=== PATIENT | female | born 1930 | race Caucasian/White ===

== ENCOUNTER 2016-12-31 12:58 | Emergency (ER) | payer MEDICARE, BC ==
[2016-12-31] MEDS ORDERED: ONDANSETRON 4 MG ODT TABLET SL ONE (14:32)
--- NOTE | 2016-12-31 15:05 | Emergency Department Record ---
History of Present Illness - General Chief Complaint: Fall Injury Stated Complaint: FALL Time Seen by Provider: 12/31/16 13:21 Source: Patient Mode of Arrival: Wheelchair Limitations: No limitations - History of Present Illness Initial Comments: pt tripped and hit her head on a clock. 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 Witnessed: Yes, by family Place Fall Occurred: Home Loss of Consciousness: None Prolonged Down Time?: No Symptoms Prior to Fall: None Location: Head Severity: Mild Severity scale (1-10): 2 Quality: Aching Context: Tripped/slipped Associated Symptoms: Denies - [place] Coma Scale Eye Response: (4) Open spontaneously Motor Response: (6) Obeys commands Verbal Response: (5) Oriented [place] Total: 15 - Related Data Home Medications Medication Instructions Recorded Confirmed Last Taken Esomeprazole Magnesium [Nexium] 40 mg PO DAILY 12/20/15 12/31/16 12/31/16 Metoprolol Succinate 25 mg PO DAILY 12/20/15 12/31/16 12/31/16 Thyroid,Pork [[place] Thyroid] 60 mg PO DAILY 12/20/15 12/31/16 12/31/16 Donepezil HCl [Aricept] 5 mg PO DAILY 12/31/16 12/31/16 12/31/16 Perphenazine 4 mg PO QHS 12/31/16 12/31/16 Unknown Raloxifene HCl [Raloxifene HCl] 60 mg PO DAILY 12/31/16 12/31/16 12/31/16 Solifenacin Succinate [Vesicare] 10 mg PO DAILY 12/31/16 12/31/16 12/31/16 Valsartan [Diovan] 40 mg PO DAILY 12/31/16 12/31/16 12/31/16 Verapamil HCl [Verapamil Sr] 120 mg PO DAILY 12/31/16 12/31/16 12/31/16 Allergies Allergy/AdvReac Type Severity Reaction Status Date / Time cephalexin [CEPHALEXIN] Allergy Intermediate RASH Verified 12/31/16 13:06 codeine [CODEINE] Allergy Intermediate RASH Verified 12/31/16 13:06 erythromycin ethylsuccinate Allergy Intermediate RASH Verified 12/31/16 13:06 [From E.E.S.] iodine Allergy Intermediate RASH Verified 12/31/16 13:06 Penicillins [PENICILLINS] Allergy Intermediate RASH Verified 12/31/16 13:06 propoxyphene HCl Allergy Intermediate RASH Verified 12/31/16 13:06 [From DARVON] sulfamethoxazole Allergy Intermediate RASH Verified 12/31/16 13:06 [From BACTRIM] trimethoprim [From BACTRIM] Allergy Intermediate RASH Verified 12/31/16 13:06 Travel Screening - Travel/Exposure Within Last 30 Days Have you traveled within the last 30 days?: No Review of Systems Reviewed: No additional complaints except as noted below Constitutional: Reports: As per HPI. Denies: Chills, Fever, Malaise, Night sweats, Weakness, Weight change Eyes: Reports: As per HPI. Denies: Eye discharge, Eye pain, Photophobia, Vision change ENT: Reports: As per HPI. Denies: Congestion, Dental pain, Ear pain, Epistaxis , Hearing loss, Throat pain Respiratory: Reports: As per HPI. Denies: Cough, Dyspnea, Hemoptysis, Stridor, Wheezes Cardiovascular: Reports: As per HPI. Denies: Arrhythmia, Chest pain, Dyspnea on exertion, Edema, Murmurs, Orthopnea, Palpitations, Paroxysmal nocturnal dyspnea, Rheumatic Fever, Syncope Endocrine: Reports: As per HPI. Denies: Fatigue, Heat or cold intolerance, Polydipsia, Polyuria Gastrointestinal: Reports: As per HPI. Denies: Abdominal pain, Constipation, Diarrhea, Hematemesis, Hematochezia, Melena, Nausea, Vomiting Genitourinary: Reports: As per HPI. Denies: Abnormal menses, Discharge, Dyspareunia, Dysuria, Frequency, Hematuria, Incontinence, Retention, Urgency Musculoskeletal: Reports: As per HPI. Denies: Arthralgia, Back pain, Gout, Joint swelling, Myalgia, Neck pain Skin: Reports: As per HPI. Denies: Bruising, Change in color, Change in hair/ nails, Lesions, Pruritus, Rash Neurological: Reports: As per HPI. Denies: Abnormal gait, Confusion, Headache, Numbness, Paresthesias, Seizure, Tingling, Tremors, Vertigo, Weakness Psychiatric: Reports: As per HPI. Denies: Anxiety, Auditory hallucinations, Depression, Homicidal thoughts, Suicidal thoughts, Visual hallucinations Hematological/Lymphatic: Reports: As per HPI. Denies: Anemia, Blood Clots, Easy bleeding, Easy bruising, Swollen glands Past Medical History - SOCIAL HISTORY Smoking Status: Never smoker Alcohol Use: None Drug Use: None - RESPIRATORY Hx Respiratory Disorders: No - CARDIOVASCULAR Hx Cardio Disorders: Yes Hx Hypertension: Yes - NEURO Hx Neuro Disorders: Yes Hx Dizziness: Yes Hx Headaches: Yes Comment:: memory loss due to weight loss per daughter of pt - GI Hx GI Disorders: Yes Hx Pancreatitis: Yes Hx Wt Loss/Wt Gain: Yes (loss) - Hx Genitourinary Disorders: No - ENDOCRINE Hx Endocrine Disorders: Yes Hx Thyroid Disease: Yes - MUSCULOSKELETAL Hx Musculoskeletal Disorders: No - PSYCH Hx Psych Problems: No - HEMATOLOGY/ONCOLOGY Hx Hematology/Oncology Disorders: No Family Medical History Any Significant Family History?: Yes Family Hx Comment (NOT TO BE USED IN PLACE OF ITEMS BELOW): father- fast heart large, grandmother enlarged heart Hx Heart Disease: Father Physical Exam - General General Appearance: Alert, Oriented x3, Cooperative, Mild distress - Head Head exam: Normal inspection Head exam detail: Contusion, Hematoma, Laceration Image of Face/Head: 1 - contusion, swelling 2 - 2.8 cm lac - Eye Eye exam: Normal appearance, PERRL, EOMI Pupils: Normal accommodation - ENT ENT exam: Normal exam, Mucous membranes moist, Normal external ear exam, Normal orophraynx Ear exam: Normal external inspection. negative: External canal tenderness Nasal Exam: Normal inspection. negative: Discharge, Sinus tenderness Mouth exam: Normal external inspection, Tongue normal Teeth exam: Normal inspection. negative: Dental caries Throat exam: Normal inspection. negative: Tonsillar erythema, Tonsillar exudate - Neck Neck exam: Normal inspection, Full ROM. negative: Tenderness - Respiratory Respiratory exam: Normal lung sounds bilaterally. negative: Respiratory distress - Cardiovascular Cardiovascular Exam: Regular rate, Normal rhythm, Normal heart sounds - GI/Abdominal GI/Abdominal exam: Soft, Normal bowel sounds. negative: Tenderness - Rectal Rectal exam: Deferred - exam: Deferred - Extremities Extremities exam: Normal inspection, Full ROM, Normal capillary refill. negative: Tenderness - Back Back exam: Reports: Normal inspection, Full ROM. Denies: Muscle spasm, Rash noted, Tenderness - Neurological Neurological exam: Alert, CN II-XII intact, Normal gait, Oriented X3 - Psychiatric Psychiatric exam: Normal affect, Normal mood - Skin Skin exam: Dry, Intact, Normal color, Warm Course Vital Signs 12/31/16 12:59 Temperature 97.4 F L Pulse Rate 85 Respiratory 18 Rate Blood Pressure 168/90 Pulse Ox 99 Disposition Disposition: Discharge Clinical Impression: Head injury Qualifiers: Encounter type: initial encounter Qualified Code(s): S09.90XA - Unspecified injury of head, initial encounter Laceration of forehead without complication Qualifiers: Encounter type: initial encounter Qualified Code(s): S01.81XA - Laceration without foreign body of other part of head, initial encounter Disposition: Home, Self-Care Condition: (1) Good Instructions: Fall Prevention for Older Adults (ED), Minor Head Injury (ED), Suture Care (ED), Laceration (ED) Additional Instructions: follow up woith family doctor. return sooner if worse. sutures out in 6 days Forms: Patient Portal Access Laceration - Other - Time Out Informed consent:: Informed consent obtained Confirmed first & last name, , procedure, correct site?: Yes - Location Location of laceration:: Right Laceration - Head - Time Out Informed consent:: Informed consent obtained Confirmed first & last name, , procedure, correct site?: Yes - Location Location of laceration:: Right Laceration located on:: Face Length of laceration:: 2.8 Length of laceration:: cm - Clean and Prep Laceration cleaning method:: Cleansed Laceration cleaning agent:: Normal Saline - Topical Anesthetic Lidocaine dose:: 1 mL Lidocaine used:: 1% - Medication Medicated for procedure?: No - Procedural Detail Tissue detail:: Torn Foreign body in the wound?: Yes Undermining was preformed?: No Stent applied?: No [place] applied?: No (4 simple interrupted sutures w 5.0 ethilon) Retention suture(s) applied?: No
== END 2016-12-31 15:23 | disposition home or self-care (01) ==
LOC: ER 12:58
DX: S01.81XA Laceration without foreign body of other part of head, initial encounter (principal); S09.92XA Unspecified injury of nose, initial encounter; R53.1 Weakness; R63.4 Abnormal weight loss; I10 Essential (primary) hypertension; E07.9 Disorder of thyroid, unspecified; R41.3 Other amnesia; W18.09XA Striking against other object with subsequent fall, initial encounter; Y92.009 Unspecified place in unspecified non-institutional (private) residence as the place of occurrence of the external cause
CPT/HCPCS: 12013; 70450; 72125; 99283; 99284

== ENCOUNTER 2017-01-01 13:11 | Emergency (ER) | payer MEDICARE, BC ==
[2017-01-01 13:43] LABS: BASO % 1.4 % (0-6); EOS % 1.1 % (0-6); GRAN % 73.4 % (47-80); HEMATOCRIT 33.5 % (35.0-47.0); HEMOGLOBIN 11.8 gm/dl (11.6-16.0); LYMPH % 12.9 % (16-45); MEAN CELL VOLUME 90.8 fl (81-97); MEAN CORPUSCULAR HGB CONC 35.2 g/dl (32-36); MEAN PLATELET VOLUME 9.8 fl (7.4-10.4); MONO % 11.2 % (0-9); PLATELET COUNT 227 K/uL (130-400); RED BLOOD COUNT 3.69 M/uL (3.80-5.40); RED CELL DISTRIBUTION WIDTH 12.6 % (11.5-14.5); WHITE BLOOD COUNT W/O DIFF 3.5 K/uL (4.2-12.2)
[2017-01-01 13:46] LABS: MEAN CORPUSCULAR HEMOGLOBIN 31.9 pg (27-33)
[2017-01-01 13:57] LABS: ALB/GLOB RATIO 1.5 (1.1-1.8); ALBUMIN 3.8 gm/dL (3.5-5.0); ALKALINE PHOSPHATASE 65 U/L (38-126); ALT/SGPT 23 U/L (9-52); ANION GAP 17.8 (7-16); AST/SGOT 41 U/L (14-36); BILIRUBIN,TOTAL 0.46 mg/dL (0.2-1.3); BLOOD UREA NITROGEN 28 mg/dL (7-17); CARBON DIOXIDE 19.2 mmol/L (22-30); CREATININE 1.4 mg/dL (0.52-1.04); EST GLOMERULAR FILTRATION RATE 38 ml/min; GLUCOSE,RANDOM 62 mg/dL (70-110); TOTAL PROTEIN 6.4 gm/dL (6.3-8.2)
[2017-01-01 13:58] LABS: ACETAMINOPHEN < 10.0 ug/mL (10.0-30.0)
[2017-01-01 14:11] LABS: INR 1.07; PARTIAL THROMBOPLASTIN TIME 21.8 SECONDS (24.5-39.1); PROTHROMBIN TIME (PATIENT) 12.1 SECONDS (9.5-12.1)
[2017-01-01] MEDS: DEXTROSE 50 % IVP 50 ML DISP.SYRIN IVP ONE (14:16)
[2017-01-01 16:30] LABS: URINE APPEARANCE CLEAR; URINE BILIRUBIN NEGATIVE (NEGATIVE); URINE BLOOD NEGATIVE (NEGATIVE); URINE COLOR YELLOW; URINE KETONE 40 mg/dL (NEGATIVE); URINE LEUKOCYTE ESTERASE NEGATIVE (NEGATIVE); URINE NITRITE NEGATIVE (NEGATIVE); URINE PROTEIN NEGATIVE (NEGATIVE); URINE UROBILINOGEN 0.2 E.U./dL (0.20 - 1.00)
[2017-01-01] MEDS: ACETAMINOPHEN 325 MG TAB PO ONE (16:40)
--- NOTE | 2017-01-01 17:10 | Emergency Department Record ---
History of Present Illness - General Chief Complaint: Headache Migraine Stated Complaint: HEADPAIN/ABD PAIN Time Seen by Provider: 01/01/17 13:23 Source: Patient, EMS, RN notes reviewed Mode of Arrival: EMS - History of Present Illness Initial Comments: patient came in to ED with confusion and glucose of 68 per EMS and abdominal pain on palpation of the abd. We rechecked her glucose and it dropped to 60 and she was given an amp of D50 and she was doing much better. Seen her yesterday and she fell and head CT hegative yesterday. Onset/Timin -: Days(s) Context: Recent head injury Associated Symptoms: Other - Related Data Home Medications Medication Instructions Recorded Confirmed Last Taken Esomeprazole Magnesium [Nexium] 40 mg PO DAILY 12/20/15 01/01/17 01/01/17 Metoprolol Succinate 25 mg PO DAILY 12/20/15 01/01/17 01/01/17 Thyroid,Pork [[place] Thyroid] 60 mg PO DAILY 12/20/15 01/01/17 01/01/17 Donepezil HCl [Aricept] 5 mg PO DAILY 12/31/16 01/01/17 01/01/17 Perphenazine 4 mg PO QHS 12/31/16 01/01/17 01/01/17 Raloxifene HCl [Raloxifene HCl] 60 mg PO DAILY 12/31/16 01/01/17 01/01/17 Solifenacin Succinate [Vesicare] 10 mg PO DAILY 12/31/16 01/01/17 01/01/17 Valsartan [Diovan] 40 mg PO DAILY 12/31/16 01/01/17 01/01/17 Verapamil HCl [Verapamil Sr] 120 mg PO DAILY 12/31/16 01/01/17 01/01/17 Allergies Allergy/AdvReac Type Severity Reaction Status Date / Time cephalexin [CEPHALEXIN] Allergy Intermediate RASH Verified 01/01/17 13:18 codeine [CODEINE] Allergy Intermediate RASH Verified 01/01/17 13:18 erythromycin ethylsuccinate Allergy Intermediate RASH Verified 01/01/17 13:18 [From E.E.S.] iodine Allergy Intermediate RASH Verified 01/01/17 13:18 Penicillins [PENICILLINS] Allergy Intermediate RASH Verified 01/01/17 13:18 propoxyphene HCl Allergy Intermediate RASH Verified 01/01/17 13:18 [From DARVON] sulfamethoxazole Allergy Intermediate RASH Verified 01/01/17 13:18 [From BACTRIM] trimethoprim [From BACTRIM] Allergy Intermediate RASH Verified 01/01/17 13:18 Travel Screening - Travel/Exposure Within Last 30 Days Have you traveled within the last 30 days?: No - Travel/Exposure Within Last Year Have you traveled outside the [place] in the last year?: No - Additonal Travel Details Have you been exposed to anyone with a communicable illness?: No - Travel Symptoms Symptom Screening: None Review of Systems Reviewed: No additional complaints except as noted below Constitutional: Reports: As per HPI. Denies: Chills, Fever, Malaise, Night sweats, Weakness, Weight change Eyes: Reports: As per HPI. Denies: Eye discharge, Eye pain, Photophobia, Vision change ENT: Reports: As per HPI. Denies: Congestion, Dental pain, Ear pain, Epistaxis , Hearing loss, Throat pain Respiratory: Reports: As per HPI. Denies: Cough, Dyspnea, Hemoptysis, Stridor, Wheezes Cardiovascular: Reports: As per HPI. Denies: Arrhythmia, Chest pain, Dyspnea on exertion, Edema, Murmurs, Orthopnea, Palpitations, Paroxysmal nocturnal dyspnea, Rheumatic Fever, Syncope Endocrine: Reports: As per HPI. Denies: Fatigue, Heat or cold intolerance, Polydipsia, Polyuria Gastrointestinal: Reports: As per HPI. Denies: Abdominal pain, Constipation, Diarrhea, Hematemesis, Hematochezia, Melena, Nausea, Vomiting Genitourinary: Reports: As per HPI. Denies: Abnormal menses, Discharge, Dyspareunia, Dysuria, Frequency, Hematuria, Incontinence, Retention, Urgency Musculoskeletal: Reports: As per HPI. Denies: Arthralgia, Back pain, Gout, Joint swelling, Myalgia, Neck pain Skin: Reports: As per HPI. Denies: Bruising, Change in color, Change in hair/ nails, Lesions, Pruritus, Rash Neurological: Reports: As per HPI. Denies: Abnormal gait, Confusion, Headache, Numbness, Paresthesias, Seizure, Tingling, Tremors, Vertigo, Weakness Psychiatric: Reports: As per HPI. Denies: Anxiety, Auditory hallucinations, Depression, Homicidal thoughts, Suicidal thoughts, Visual hallucinations Hematological/Lymphatic: Reports: As per HPI. Denies: Anemia, Blood Clots, Easy bleeding, Easy bruising, Swollen glands Past Medical History - SOCIAL HISTORY Smoking Status: Never smoker Alcohol Use: None Drug Use: None - RESPIRATORY Hx Respiratory Disorders: No - CARDIOVASCULAR Hx Cardio Disorders: Yes Hx Hypertension: Yes - NEURO Hx Neuro Disorders: Yes Hx Dizziness: Yes Hx Headaches: Yes Comment:: memory loss due to weight loss per daughter of pt - GI Hx GI Disorders: Yes Hx Pancreatitis: Yes Hx Wt Loss/Wt Gain: Yes (loss) - Hx Genitourinary Disorders: No - ENDOCRINE Hx Endocrine Disorders: Yes Hx Thyroid Disease: Yes - MUSCULOSKELETAL Hx Musculoskeletal Disorders: No - PSYCH Hx Psych Problems: No - HEMATOLOGY/ONCOLOGY Hx Hematology/Oncology Disorders: No Family Medical History Any Significant Family History?: Yes Family Hx Comment (NOT TO BE USED IN PLACE OF ITEMS BELOW): father- fast heart large, grandmother enlarged heart Hx Heart Disease: Father Physical Exam - General General Appearance: Moderate distress, Other (Patient has dementia) - Head Head exam: Normal inspection - Eye Eye exam: Normal appearance, PERRL Pupils: Normal accommodation - ENT ENT exam: Normal exam, Mucous membranes moist, Normal external ear exam, Normal orophraynx, TM's normal bilaterally Ear exam: Normal external inspection. negative: External canal tenderness Nasal Exam: Normal inspection. negative: Discharge, Sinus tenderness Mouth exam: Normal external inspection, Tongue normal Teeth exam: Normal inspection. negative: Dental caries Throat exam: Normal inspection. negative: Tonsillar erythema, Tonsillar exudate - Neck Neck exam: Normal inspection, Full ROM. negative: Tenderness - Respiratory Respiratory exam: Normal lung sounds bilaterally. negative: Respiratory distress - Cardiovascular Cardiovascular Exam: Regular rate, Normal rhythm, Normal heart sounds - GI/Abdominal GI/Abdominal exam: Soft, Normal bowel sounds, Tenderness (painful on palpation) - Rectal Rectal exam: Deferred - exam: Deferred - Extremities Extremities exam: Normal inspection, Full ROM, Normal capillary refill. negative: Tenderness - Back Back exam: Reports: Normal inspection, Full ROM. Denies: Muscle spasm, Rash noted, Tenderness - Neurological Neurological exam: Alert, Normal gait, Oriented X3, Reflexes normal - Psychiatric Psychiatric exam: Normal affect, Normal mood - Skin Skin exam: Dry, Intact, Normal color, Warm Course Vital Signs 01/01/17 13:22 Temperature 98.8 F Pulse Rate 111 H Respiratory 20 Rate Blood Pressure 155/93 Pulse Ox 99 patient is doing much better and back to her baseline pe family they said she lately hasn't been eating much. Dementia is much worse and she is a do not resuscitate - Reevaluation(s) Reevaluation #1: patient given 500 ml of normal saline and doing better 01/01/17 17:20 Medical Decision Making - Data Complexity MDM Data: Labs Ordered and/or Reviewed, X-Ray Ordered and/or Reviewed (CT head neg CT of abd neg) - Lab Data Result diagrams: 01/01/17 13:37 01/01/17 13:37 Lab Results 01/01/17 01/01/17 01/01/17 Range/Units 13:35 13:37 13:37 WBC 3.5 L (4.2-12.2) K/uL RBC 3.69 L (3.80-5.40) M/uL Hgb 11.8 (11.6-16.0) gm/dl Hct 33.5 L (35.0-47.0) % MCV 90.8 (81-97) fl MCH 31.9 (27-33) pg MCHC 35.2 (32-36) g/dl RDW 12.6 (11.5-14.5) % Plt Count 227 (130-400) K/uL MPV 9.8 (7.4-10.4) fl Gran % 73.4 (47-80) % Lymphocytes % 12.9 L (16-45) % Monocytes % 11.2 H (0-9) % Eosinophils % 1.1 (0-6) % Basophils % 1.4 (0-6) % PT (9.5-12.1) SECONDS INR APTT (24.5-39.1) SECONDS Sodium 126 L (136-145) mmol/L Potassium 3.6 (3.5-5.1) mmol/L Chloride 89 L (98-107) mmol/L Carbon Dioxide 19.2 L (22-30) mmol/L Anion Gap 17.8 H (7-16) BUN 28 H (7-17) mg/dL Creatinine 1.4 H (0.52-1.04) mg/dL Estimated GFR 38 ml/min POC Glucose (70-110) mg/dL Random Glucose 62 L (70-110) mg/dL Lactic Acid (0.7-2.1) mmol/L Calcium 9.4 (8.5-10.1) mg/dL Total Bilirubin 0.46 (0.2-1.3) mg/dL AST 41 H (14-36) U/L ALT 23 (9-52) U/L Alkaline Phosphatase 65 (38-126) U/L Total Protein 6.4 (6.3-8.2) gm/dL Albumin 3.8 (3.5-5.0) gm/dL Globulin 2.6 (1.4-4.8) gm/dL Albumin/Globulin Ratio 1.5 (1.1-1.8) Lipase 118 (23-300) U/L Urine Color Urine Appearance Urine pH (5.0-8.0) Ur Specific [place] (1.002-1.030) Urine Protein (NEGATIVE) Urine Glucose (UA) (NEGATIVE) Urine Ketones (NEGATIVE) Urine Blood (NEGATIVE) Urine Nitrite (NEGATIVE) Urine Bilirubin (NEGATIVE) Urine Urobilinogen (0.20 - 1.00) E.U./dL Ur Leukocyte Esterase (NEGATIVE) Acetaminophen < 10.0 L (10.0-30.0) ug/mL 01/01/17 01/01/17 01/01/17 Range/Units 13:37 13:45 13:46 WBC (4.2-12.2) K/uL RBC (3.80-5.40) M/uL Hgb (11.6-16.0) gm/dl Hct (35.0-47.0) % MCV (81-97) fl MCH (27-33) pg MCHC (32-36) g/dl RDW (11.5-14.5) % Plt Count (130-400) K/uL MPV (7.4-10.4) fl Gran % (47-80) % Lymphocytes % (16-45) % Monocytes % (0-9) % Eosinophils % (0-6) % Basophils % (0-6) % PT 12.1 (9.5-12.1) SECONDS INR 1.07 APTT 21.80 L (24.5-39.1) SECONDS Sodium (136-145) mmol/L Potassium (3.5-5.1) mmol/L Chloride (98-107) mmol/L Carbon Dioxide (22-30) mmol/L Anion Gap (7-16) BUN (7-17) mg/dL Creatinine (0.52-1.04) mg/dL Estimated GFR ml/min POC Glucose 60 L (70-110) mg/dL Random Glucose (70-110) mg/dL Lactic Acid 2.0 (0.7-2.1) mmol/L Calcium (8.5-10.1) mg/dL Total Bilirubin (0.2-1.3) mg/dL AST (14-36) U/L ALT (9-52) U/L Alkaline Phosphatase (38-126) U/L Total Protein (6.3-8.2) gm/dL Albumin (3.5-5.0) gm/dL Globulin (1.4-4.8) gm/dL Albumin/Globulin Ratio (1.1-1.8) Lipase (23-300) U/L Urine Color Urine Appearance Urine pH (5.0-8.0) Ur Specific [place] (1.002-1.030) Urine Protein (NEGATIVE) Urine Glucose (UA) (NEGATIVE) Urine Ketones (NEGATIVE) Urine Blood (NEGATIVE) Urine Nitrite (NEGATIVE) Urine Bilirubin (NEGATIVE) Urine Urobilinogen (0.20 - 1.00) E.U./dL Ur Leukocyte Esterase (NEGATIVE) Acetaminophen (10.0-30.0) ug/mL 01/01/17 01/01/17 Range/Units 16:00 16:15 WBC (4.2-12.2) K/uL RBC (3.80-5.40) M/uL Hgb (11.6-16.0) gm/dl Hct (35.0-47.0) % MCV (81-97) fl MCH (27-33) pg MCHC (32-36) g/dl RDW (11.5-14.5) % Plt Count (130-400) K/uL MPV (7.4-10.4) fl Gran % (47-80) % Lymphocytes % (16-45) % Monocytes % (0-9) % Eosinophils % (0-6) % Basophils % (0-6) % PT (9.5-12.1) SECONDS INR APTT (24.5-39.1) SECONDS Sodium (136-145) mmol/L Potassium (3.5-5.1) mmol/L Chloride (98-107) mmol/L Carbon Dioxide (22-30) mmol/L Anion Gap (7-16) BUN (7-17) mg/dL Creatinine (0.52-1.04) mg/dL Estimated GFR ml/min POC Glucose 150 H (70-110) mg/dL Random Glucose (70-110) mg/dL Lactic Acid (0.7-2.1) mmol/L Calcium (8.5-10.1) mg/dL Total Bilirubin (0.2-1.3) mg/dL AST (14-36) U/L ALT (9-52) U/L Alkaline Phosphatase (38-126) U/L Total Protein (6.3-8.2) gm/dL Albumin (3.5-5.0) gm/dL Globulin (1.4-4.8) gm/dL Albumin/Globulin Ratio (1.1-1.8) Lipase (23-300) U/L Urine Color Yellow Urine Appearance Clear Urine pH 5.5 (5.0-8.0) Ur Specific [place] 1.010 (1.002-1.030) Urine Protein Negative (NEGATIVE) Urine Glucose (UA) 100 mg/dl H (NEGATIVE) Urine Ketones 40 mg/dl H (NEGATIVE) Urine Blood Negative (NEGATIVE) Urine Nitrite Negative (NEGATIVE) Urine Bilirubin Negative (NEGATIVE) Urine Urobilinogen 0.2 (0.20 - 1.00) E.U./dL Ur Leukocyte Esterase Negative (NEGATIVE) Acetaminophen (10.0-30.0) ug/mL Disposition Clinical Impression: Dehydration, Hypoglycemia Dementia Qualifiers: Dementia type: unspecified type Dementia behavioral disturbance: without behavioral disturbance Qualified Code(s): F03.90 - Unspecified dementia without behavioral disturbance Instructions: Dehydration (ED) Forms: Patient Portal Access Time of Disposition: 17:22
== END 2017-01-01 17:54 | disposition home or self-care (01) ==
LOC: ER 13:11
DX: E86.0 Dehydration (principal); E16.2 Hypoglycemia, unspecified; R51 Headache; R10.9 Unspecified abdominal pain; F03.90 Unspecified dementia, unspecified severity, without behavioral disturbance, psychotic disturbance, mood disturbance, and anxiety; R63.4 Abnormal weight loss; I10 Essential (primary) hypertension; E07.9 Disorder of thyroid, unspecified; Z91.81 History of falling
CPT/HCPCS: 99284 ×2; 96374; 83605; 83690; 85025; 85730; 85610; 80053; 36416; 82948; 81003; 70450; 74176; G0480; 80329

== ENCOUNTER 2017-01-03 18:56 | Inpatient (IN) | payer MEDICARE, BC ==
[2017-01-03] MEDS ORDERED: METOCLOPRAMIDE HCL 10 MG/2 ML VIAL IVP ONE (19:26)
[2017-01-03] MEDS ORDERED: DIPHENHYDRAMINE HCL IV 50 MG/ML VIAL IVP ONE (19:26)
[2017-01-03] MEDS ORDERED: 0.9 % SODIUM CHLORIDE 1000ML 1,000 ML IV SCH (19:30)
--- NOTE | 2017-01-03 19:32 | Emergency Department Record ---
History of Present Illness - General Chief complaint: Nausea, Vomiting, Diarrhea Stated complaint: DRY HEAVES Time Seen by Provider: 01/03/17 19:10 Source: Patient, Family Mode of Arrival: EMS Limitations: No limitations - History of Present Illness Initial comments: 86 yo female presents to ED for several complaints. Daughter reports that the patient has been complaining of a headache for most of the day associated with intermittent vomiting today. Daughter reports recent fall with laceration repair 3 days ago. Daughter also reports decreased appetite and weight loss resulting in continuing weight loss (down to 78 lbs). Daughter denies fevers, chills, or cough symptoms. Daughter reports that the patient has been comlaining of abdominal pain this week as well, has undergone CT imaging of the abdomen x 2 this week as well. MD complaint: Nausea, Vomiting Onset/Timin -: Hour(s) Associated Abdominal Pain: Yes Location: Diffuse Severity: Mild Severity scale (1-10): 4 Quality: Aching Consistency: Intermittent Improves with: None Worsens with: None Associated Symptoms: Headaches, Loss of appetite, Nausea/vomiting - Related Data Home Medications Medication Instructions Recorded Confirmed Last Taken Esomeprazole Magnesium [Nexium] 40 mg PO DAILY 12/20/15 01/03/17 01/03/17 Metoprolol Succinate 25 mg PO DAILY 12/20/15 01/03/17 01/03/17 Thyroid,Pork [[place] Thyroid] 60 mg PO DAILY 12/20/15 01/03/17 01/03/17 Donepezil HCl [Aricept] 5 mg PO DAILY 12/31/16 01/03/17 01/03/17 Perphenazine 4 mg PO QHS 12/31/16 01/03/17 01/03/17 Raloxifene HCl [Raloxifene HCl] 60 mg PO DAILY 12/31/16 01/03/17 01/03/17 Solifenacin Succinate [Vesicare] 10 mg PO DAILY 12/31/16 01/03/17 01/03/17 Valsartan [Diovan] 40 mg PO DAILY 12/31/16 01/03/17 01/03/17 Verapamil HCl [Verapamil Sr] 120 mg PO DAILY 12/31/16 01/03/17 01/03/17 Allergies Allergy/AdvReac Type Severity Reaction Status Date / Time cephalexin [CEPHALEXIN] Allergy Intermediate RASH Verified 01/03/17 19:04 codeine [CODEINE] Allergy Intermediate RASH Verified 01/03/17 19:04 erythromycin ethylsuccinate Allergy Intermediate RASH Verified 01/03/17 19:04 [From E.E.S.] iodine Allergy Intermediate RASH Verified 01/03/17 19:04 Penicillins [PENICILLINS] Allergy Intermediate RASH Verified 01/03/17 19:04 propoxyphene HCl Allergy Intermediate RASH Verified 01/03/17 19:04 [From DARVON] sulfamethoxazole Allergy Intermediate RASH Verified 01/03/17 19:04 [From BACTRIM] trimethoprim [From BACTRIM] Allergy Intermediate RASH Verified 01/03/17 19:04 Travel Screening - Travel/Exposure Within Last 30 Days Have you traveled within the last 30 days?: No Review of Systems Constitutional: Reports: Weight change. Denies: Chills, Fever, Malaise, Night sweats Eyes: Denies: Eye discharge, Eye pain ENT: Denies: Congestion, Ear pain, Epistaxis Respiratory: Denies: Cough, Dyspnea Cardiovascular: Denies: Chest pain, Dyspnea on exertion Endocrine: Denies: Fatigue, Heat or cold intolerance Gastrointestinal: Reports: Abdominal pain, Nausea, Vomiting. Denies: Constipation Genitourinary: Denies: Dysuria, Frequency, Hematuria, Incontinence Musculoskeletal: Denies: Arthralgia, Back pain, Gout, Joint swelling Skin: Denies: Bruising, Change in color Neurological: Reports: Headache. Denies: Abnormal gait, Confusion, Seizure Psychiatric: Denies: Anxiety Hematological/Lymphatic: Denies: Anemia, Blood Clots Past Medical History - SOCIAL HISTORY Smoking Status: Never smoker Alcohol Use: None Drug Use: None - RESPIRATORY Hx Respiratory Disorders: No - CARDIOVASCULAR Hx Cardio Disorders: Yes Hx Hypertension: Yes - NEURO Hx Neuro Disorders: Yes Hx Dizziness: Yes Hx Headaches: Yes Comment:: memory loss due to weight loss per daughter of pt - GI Hx GI Disorders: Yes Hx Pancreatitis: Yes Hx Wt Loss/Wt Gain: Yes (loss) - Hx Genitourinary Disorders: No - ENDOCRINE Hx Endocrine Disorders: Yes Hx Thyroid Disease: Yes - MUSCULOSKELETAL Hx Musculoskeletal Disorders: No - PSYCH Hx Psych Problems: No - HEMATOLOGY/ONCOLOGY Hx Hematology/Oncology Disorders: No Family Medical History Any Significant Family History?: Yes Family Hx Comment (NOT TO BE USED IN PLACE OF ITEMS BELOW): father- fast heart large, grandmother enlarged heart Hx Heart Disease: Father Physical Exam - General General Appearance: Alert, Oriented x3, Cooperative, Other (Cachetic appearing, sleeping on examination, easily arouses and begins to moan when awake) - Head Head exam: Other (healing laceration to the right temporal region, ecchymosis present from recent fall) Head exam detail: Contusion, General tenderness, Laceration. negative: Govea' s sign - Eye Eye exam: Normal appearance. negative: Conjunctival injection, Periorbital swelling, Periorbital tenderness, Scleral icterus - ENT Ear exam: negative: Auricular hematoma, Auricular trauma Nasal Exam: negative: Active bleeding, Discharge, Dried blood, Foreign body Mouth exam: negative: Drooling, Laceration, Muffled voice, Tongue elevation - Neck Neck exam: negative: Meningismus, Tenderness - Respiratory Respiratory exam: Normal lung sounds bilaterally. negative: Rales, Respiratory distress, Rhonchi, Stridor - Cardiovascular Cardiovascular Exam: Regular rate, Normal rhythm, Normal heart sounds - GI/Abdominal GI/Abdominal exam: Soft, Tenderness (mild, diffuse, TTP on examination, no rebound or guarding present). negative: Rebound, Rigid - Rectal Rectal exam: Deferred - exam: Deferred - Extremities Extremities exam: negative: Pedal edema, Tenderness - Back Back exam: Denies: CVA tenderness (R), CVA tenderness (L) - Neurological Neurological exam: Alert, Oriented X3 - Psychiatric Psychiatric exam: Normal affect, Normal mood - Skin Skin exam: Normal color. negative: Abrasion Type of lesion: negative: abrasion Course Vital Signs 01/03/17 18:57 Temperature 97.4 F L Pulse Rate 80 Respiratory 18 Rate Blood Pressure 170/72 Pulse Ox 96 - Reevaluation(s) Reevaluation #1: 01/03/17 19:36 Imaging reviewed from 01/01/17: CT Abdomen and Pelvis: Post-operative changes, chronic T12 compression fracture , nothing acute. CT Brain: Generalized atrophy, nothing acute. Reevaluation #2: 01/03/17 20:10 Labs reviewed, WBC 2.9, Hgb 11.1, BUN 24, creatinine 1.0. Findings are c/w mild -moderate dehydration. Reevaluation #3: 01/03/17 20:34 CT Brain: Nothing acute, mild generalized atrophy. Patient reassessed, reports that her headache pain symptoms are down to 4/10 from 8. Reevaluation #4: 01/03/17 20:41 Case was discussed with Kristen Alicea, will admit for further evaluation and IV rehydration. Medical Decision Making - Lab Data Result diagrams: 01/03/17 19:43 01/03/17 19:43 Disposition Disposition: Admit Clinical Impression: Dehydration, Weakness, Unintended weight loss, Chronic abdominal pain Headache Qualifiers: Headache type: unspecified Headache chronicity pattern: acute headache Intractability: not intractable Qualified Code(s): R51 - Headache Disposition: Still a Patient at [facility] Decision to Admit: Admit from ER Decision to Admit Date: 01/03/17 Decision to Admit Time: 20:43 Condition: (2) Stable Forms: Patient Portal Access Time of Disposition: 20:43
[2017-01-03 19:49] LABS: GRAN % 74.8 % (47-80); HEMATOCRIT 33.2 % (35.0-47.0); HEMOGLOBIN 11.1 gm/dl (11.6-16.0); MEAN CELL VOLUME 93.5 fl (81-97); MEAN CORPUSCULAR HGB CONC 33.4 g/dl (32-36); MEAN PLATELET VOLUME 10.1 fl (7.4-10.4); MONO % 9.2 % (0-9); PLATELET COUNT 139 K/uL (130-400); RED BLOOD COUNT 3.55 M/uL (3.80-5.40); RED CELL DISTRIBUTION WIDTH 12.9 % (11.5-14.5); WHITE BLOOD COUNT W/O DIFF 2.9 K/uL (4.2-12.2)
[2017-01-03 19:52] LABS: MEAN CORPUSCULAR HEMOGLOBIN 31.2 pg (27-33)
[2017-01-03 20:01] LABS: ALB/GLOB RATIO 1.5 (1.1-1.8); ALBUMIN 3.7 gm/dL (3.5-5.0); ANION GAP 15.3 (7-16); BILIRUBIN,TOTAL 0.4 mg/dL (0.2-1.3); CARBON DIOXIDE 18.7 mmol/L (22-30); TOTAL PROTEIN 6.2 gm/dL (6.3-8.2)
[2017-01-03 21:05] LABS: URINE APPEARANCE CLEAR; URINE BILIRUBIN NEGATIVE (NEGATIVE); URINE BLOOD NEGATIVE (NEGATIVE); URINE COLOR YELLOW; URINE GLUCOSE (UA) NEGATIVE (NEGATIVE); URINE KETONE 40 mg/dL (NEGATIVE); URINE LEUKOCYTE ESTERASE NEGATIVE (NEGATIVE); URINE NITRITE NEGATIVE (NEGATIVE); URINE PROTEIN NEGATIVE (NEGATIVE); URINE UROBILINOGEN 0.2 E.U./dL (0.20 - 1.00)
[2017-01-03] MEDS ORDERED: ACETAMINOPHEN 500 MG TABLET PO PRN (21:36)
[2017-01-03] MEDS ORDERED: 0.9 % SODIUM CHLORIDE 1000ML 1,000 ML IV PRN (21:36)
[2017-01-03] MEDS ORDERED: PERPHENAZINE 4 MG PO SCH (22:00)
[2017-01-04 08:19] LABS: EOS % 1.4 % (0-6); GRAN % 60.1 % (47-80); HEMATOCRIT 33.9 % (35.0-47.0); HEMOGLOBIN 11.4 gm/dl (11.6-16.0); LYMPH % 22.9 % (16-45); MEAN CELL VOLUME 92.9 fl (81-97); MEAN CORPUSCULAR HEMOGLOBIN 31.2 pg (27-33); MEAN CORPUSCULAR HGB CONC 33.6 g/dl (32-36); MEAN PLATELET VOLUME 9.1 fl (7.4-10.4); MONO % 14.6 % (0-9); PLATELET COUNT 212 K/uL (130-400); RED BLOOD COUNT 3.65 M/uL (3.80-5.40); WHITE BLOOD COUNT W/O DIFF 2.9 K/uL (4.2-12.2)
[2017-01-04 08:32] LABS: ALB/GLOB RATIO 1.4 (1.1-1.8); ALBUMIN 3.5 gm/dL (3.5-5.0); ALKALINE PHOSPHATASE 60 U/L (38-126); ALT/SGPT 25 U/L (9-52); ANION GAP 12.5 (7-16); AST/SGOT 38 U/L (14-36); BILIRUBIN,TOTAL 0.31 mg/dL (0.2-1.3); BLOOD UREA NITROGEN 19 mg/dL (7-17); CARBON DIOXIDE 21.5 mmol/L (22-30); CREATININE 0.9 mg/dL (0.52-1.04); EST GLOMERULAR FILTRATION RATE > 60 ml/min
[2017-01-04 08:37] LABS: GLUCOSE,RANDOM 45 mg/dL (70-110)
[2017-01-04] MEDS ORDERED: DEXTROSE 50 % IVP 50 ML DISP.SYRIN IVP ONE (08:47)
[2017-01-04] MEDS ORDERED: DEXTROSE 5 % AND 0.9 % NACL 1,000 ML IV PRN (09:49)
[2017-01-04] MEDS: DONEPEZIL HCL 5 MG TABLET PO SCH (10:36)
[2017-01-04] MEDS: METOPROLOL SUCC 25 MG TAB.ER PO SCH (10:37)
[2017-01-04] MEDS: PATIENT OWN MED: ESOMEPRAZOLE 40 MG PO SCH ×2 (10:42→13:03)
[2017-01-04] MEDS: PATIENT OWN MED: VESICARE 10 MG PO SCH ×2 (10:43→13:06)
[2017-01-04] MEDS: PATIENT OWN MED: RALOXIFENE 60 MG PO SCH ×2 (10:45→13:05)
[2017-01-04] MEDS: ARMOUR THYROID 60 MG PO SCH ×2 (10:46→13:02)
[2017-01-04] MEDS: VERAPAMIL ER 120 MG TABLET PO SCH ×2 (10:48→13:01)
[2017-01-04] MEDS: VALSARTAN 80 MG TAB PO SCH ×2 (10:52→13:02)
--- NOTE | 2017-01-04 16:08 | History & Physical ---
History of Present Illness - Date of Service Date of Service for History & Physical: 01/04/17 - History of Present Illness Admitting Diagnosis: Generalized weakness. Headache. Dehydration. Unintentional weight loss. Chronic abdominal pain History of Present Illness: 86yo female with CC of weakness. She has a history of HTN, headaches, hypothyroidism and dementia. Patient was brought to the ED last night by her daughter. She had been seen in the [facility] ED at total of 3 times this week She was evaluated on 12/31 after daughter states she got out of bed had a fall and hit her head on the grandfather clock. Had negatvie head and Cspine CT scans that night in the ED and laceration was repaired. The next day patient was complaining of headache and generalized abdominal pain. daughter called EMS. she was found to have glucose of 68 and then 60. she was evaluated in the ED again, given an amp of D5 with improvement in glucose. underwent repeat Head Ct to eval for latent bleed which was negative. Had abdominal CT as well without acute process noted. Daughter brought her in last night ue to continued headache, generalized abdominal pain and vomiting. While in the ED last night, patient had another head CT which was negative for bleed or acute changes. . CBC showed stable hgb from previous visits this week at 11.4. CMP showed stable hyponatremia with sodium of 126. BUN and Cr actually improved from 01/01 at 24 and 1.0. UA negative for infection but did have positive ketones. Patient was afebrile, and blood pressure stable at 137/72. She was admitted for generalized weakness, nausea/vomiting. 01/04/17- Patient resting comfortably in bed. Daughter is at bedside. Daughter provides much of the history. she states her mother's dementia has been getting progressively worse over the past year and significantly worse the past 4-5 months. She says this past year her mother's appetite has been decreasing and she has been losing weight. She states in august she was started on aricept for her dementia and was then started on the perphenazine for hallucinations in October by her pcp. She says this past week her mother has hardly eaten or drank anything. She says on 01/01 her glucose was low and that was the first time they had checked her glucose. Daughter says she has just noted significant changes this week in memory, appetite and strength. no recent medication changes. has not been coughing or having other respiratory symptoms. PCP: [facility] Travel Screening - Travel/Exposure Within Last 30 Days Have you traveled within the last 30 days?: No Review of Systems Constitutional: Reports: Weakness, Weight change. Denies: Chills, Fever, Malaise, Night sweats Eyes: Denies: Eye discharge, Eye pain ENT: Denies: Congestion, Ear pain, Epistaxis Respiratory: Denies: Cough, Dyspnea Cardiovascular: Denies: Chest pain, Dyspnea on exertion Endocrine: Denies: Fatigue, Heat or cold intolerance Gastrointestinal: Reports: Abdominal pain, Nausea, Vomiting. Denies: Constipation Genitourinary: Denies: Dysuria, Frequency, Hematuria, Incontinence Musculoskeletal: Denies: Arthralgia, Back pain, Gout, Joint swelling Skin: Denies: Bruising, Change in color Neurological: Reports: Headache. Denies: Abnormal gait, Confusion, Seizure Psychiatric: Reports: Other (dementia; h/o hallucinations). Denies: Anxiety Hematological/Lymphatic: Denies: Anemia, Blood Clots Past Medical History - SOCIAL HISTORY Smoking Status: Never smoker Alcohol Use: None Drug Use: None - RESPIRATORY Hx Respiratory Disorders: No - CARDIOVASCULAR Hx Cardio Disorders: Yes Hx Hypertension: Yes - NEURO Hx Neuro Disorders: Yes Hx Dizziness: Yes Hx Headaches: Yes Comment:: memory loss due to weight loss per daughter of pt - GI Hx GI Disorders: Yes Hx Pancreatitis: Yes Hx Wt Loss/Wt Gain: Yes (loss) - Hx Genitourinary Disorders: No - ENDOCRINE Hx Endocrine Disorders: Yes Hx Thyroid Disease: Yes - MUSCULOSKELETAL Hx Musculoskeletal Disorders: No - PSYCH Hx Psych Problems: No - HEMATOLOGY/ONCOLOGY Hx Hematology/Oncology Disorders: No Family Medical History Any Significant Family History?: Yes Family Hx Comment (NOT TO BE USED IN PLACE OF ITEMS BELOW): father- fast heart large, grandmother enlarged heart Hx Heart Disease: Father H&P Meds/Allergies - Allergies Allergies: Allergies Allergy/AdvReac Type Severity Reaction Status Date / Time cephalexin [CEPHALEXIN] Allergy Intermediate RASH Verified 01/03/17 19:04 codeine [CODEINE] Allergy Intermediate RASH Verified 01/03/17 19:04 erythromycin ethylsuccinate Allergy Intermediate RASH Verified 01/03/17 19:04 [From E.E.S.] iodine Allergy Intermediate RASH Verified 01/03/17 19:04 Penicillins [PENICILLINS] Allergy Intermediate RASH Verified 01/03/17 19:04 propoxyphene HCl Allergy Intermediate RASH Verified 01/03/17 19:04 [From DARVON] sulfamethoxazole Allergy Intermediate RASH Verified 01/03/17 19:04 [From BACTRIM] trimethoprim [From BACTRIM] Allergy Intermediate RASH Verified 01/03/17 19:04 - Home Medications Home Medications Medication Instructions Recorded Confirmed Last Taken Esomeprazole Magnesium [Nexium] 40 mg PO DAILY 12/20/15 01/03/17 01/03/17 Metoprolol Succinate 25 mg PO DAILY 12/20/15 01/03/17 01/03/17 Thyroid,Pork [[place] Thyroid] 60 mg PO DAILY 12/20/15 01/03/17 01/03/17 Donepezil HCl [Aricept] 5 mg PO DAILY 12/31/16 01/03/17 01/03/17 Perphenazine 4 mg PO QHS 12/31/16 01/03/17 01/03/17 Raloxifene HCl [Raloxifene HCl] 60 mg PO DAILY 12/31/16 01/03/17 01/03/17 Solifenacin Succinate [Vesicare] 10 mg PO DAILY 12/31/16 01/03/17 01/03/17 Valsartan [Diovan] 40 mg PO DAILY 12/31/16 01/03/17 01/03/17 Verapamil HCl [Verapamil Sr] 120 mg PO DAILY 12/31/16 01/03/17 01/03/17 - Active Medications Active Medications: Current Medications Acetaminophen (Tylenol 500mg Tab) 500 mg PO Q6H PRN PRN Reason: PAIN/TEMP Donepezil HCl (Aricept) 5 mg PO DAILY [facility] Last Admin: 01/04/17 10:36 Dose: 5 mg Sodium Chloride () 1,000 mls @ 100 mls/hr IV .Q10H PRN PRN Reason: LARGE VOLUME IV Last Admin: 01/03/17 23:28 Dose: 100 mls/hr Dextrose/Sodium Chloride () 1,000 mls @ 83 mls/hr IV .Q12H3M PRN PRN Reason: LARGE VOLUME IV Last Admin: 01/04/17 12:53 Dose: 83 mls/hr Metoprolol Succinate (Toprol Xl) 25 mg PO DAILY [facility] Last Admin: 01/04/17 10:37 Dose: 25 mg Patient Own Med: (Esomeprazole 40 Mg) 1 each PO DAILYAC [facility] Last Admin: 01/04/17 13:03 Dose: Not Given Patient Own Med: (Raloxifene 60 Mg) 1 each PO DAILY [facility] Last Admin: 01/04/17 13:05 Dose: Not Given Patient Own Med: (Vesicare 10 Mg) 1 each PO DAILY [facility] Last Admin: 01/04/17 13:06 Dose: Not Given Patient Own Med: ([place] Thyroid 60 Mg) 1 each PO DAILYTHY [facility] Last Admin: 01/04/17 13:02 Dose: Not Given Patient Own Med: (Perphenazine 4 Mg) 1 each PO QHS [facility] Valsartan (Diovan) 40 mg PO DAILY [facility] Last Admin: 01/04/17 13:02 Dose: Not Given Verapamil HCl ([place] Sr) 120 mg PO DAILY [facility] Last Admin: 01/04/17 13:01 Dose: 120 mg Physical Exam - Vital Signs Vital Signs: Vital Signs - Last 24 Hrs Temp Pulse Resp BP Pulse Ox 01/04/17 09:59 90 16 01/04/17 08:30 97.4 F L 90 18 135/108 98 01/04/17 05:36 97.8 F 76 16 157/82 97 01/03/17 21:36 97.4 F L 80 16 137/72 97 - General General Appearance: Alert, Oriented x3, Cooperative, Other (Cachetic appearing) Limitations: No limitations - Head Head exam: Other (healing laceration to the right temporal region, ecchymosis present from recent fall) Head exam detail: Contusion, General tenderness, Laceration. negative: Govea' s sign - Eye Eye exam: Normal appearance. negative: Conjunctival injection, Periorbital swelling, Periorbital tenderness, Scleral icterus - ENT Ear exam: negative: Auricular hematoma, Auricular trauma Nasal Exam: negative: Active bleeding, Discharge, Dried blood, Foreign body Mouth exam: negative: Drooling, Laceration, Muffled voice, Tongue elevation - Neck Neck exam: negative: Meningismus, Tenderness - Respiratory Respiratory exam: Normal lung sounds bilaterally. negative: Rales, Respiratory distress, Rhonchi, Stridor - Cardiovascular Cardiovascular Exam: Regular rate, Normal rhythm, Normal heart sounds - GI/Abdominal GI/Abdominal exam: Soft, Normal bowel sounds. negative: Distended, Rebound, Rigid, Tenderness - Rectal Rectal exam: Deferred - exam: Deferred - Extremities Extremities exam: negative: Pedal edema, Tenderness - Back Back exam: Denies: CVA tenderness (R), CVA tenderness (L) - Neurological Neurological exam: Alert, Oriented X3 - Psychiatric Psychiatric exam: Normal affect, Normal mood - Skin Skin exam: Normal color. negative: Abrasion Type of lesion: negative: abrasion Results - Labs Result Diagrams: 01/04/17 08:10 01/04/17 08:10 Labs Last 24 Hours: Laboratory Results - last 24 hr 01/04/17 01/04/17 01/04/17 07:40 08:10 08:10 WBC 2.9 L RBC 3.65 L Hgb 11.4 L Hct 33.9 L MCV 92.9 MCH 31.2 MCHC 33.6 RDW 13.0 Plt Count 212 MPV 9.1 Gran % 60.1 Lymphocytes % 22.9 Monocytes % 14.6 H Eosinophils % 1.4 Basophils % 1.0 Sodium 128 L Potassium 4.2 Chloride 94 L Carbon Dioxide 21.5 L Anion Gap 12.5 BUN 19 H Creatinine 0.9 Estimated GFR > 60 POC Glucose 51 L Random Glucose 45 L* Calcium 8.2 L Total Bilirubin 0.31 AST 38 H ALT 25 Alkaline Phosphatase 60 Total Protein 6.0 L Albumin 3.5 Globulin 2.5 Albumin/Globulin Ratio 1.4 01/04/17 09:25 WBC RBC Hgb Hct MCV MCH MCHC RDW Plt Count MPV Gran % Lymphocytes % Monocytes % Eosinophils % Basophils % Sodium Potassium Chloride Carbon Dioxide Anion Gap BUN Creatinine Estimated GFR POC Glucose 73 Random Glucose Calcium Total Bilirubin AST ALT Alkaline Phosphatase Total Protein Albumin Globulin Albumin/Globulin Ratio VTE H&P Assessment - Risk for VTE Risk for VTE: Yes Risk Level: High Risk Assessment Date: 01/04/17 Risk Assessment Time: 16:32 VTE Orders Placed or Will Be Placed: No VTE Reason for No Prophylaxis: Contraindicated Plan - Inpatient Certification Inpatient Certification: Admit to inpatient care: Based on my medical assessment, after consideration of patient's risk factors (age, co-morbidities and patient presenting symptoms and acuity), I expect that this patient will remain in the hospital greater than or equal to two midnights and that the services needed warrant inpatient care because: Patient Risk Factors: age, weakness, dementia, failure to thrive] Estimated length of stay: [72-96H] The patient may reasonably be expected to be discharged or transferred to a hospital within 96 hours after admission to [facility]. Services needed: [nutrition consultation, IV fluid resuscitation, social work consult, pt/ot consult] Post hospital care (if known): [[facility] vs [facility] facility vs hospice] I certify that my determination is in accordance with my understanding of Medicare requirements for reasonable and necessary inpatient services. 01/04/17 16:32 - Detailed Diagnosis and Plan (1) Failure to thrive Current Visit: Yes Status: Acute Qualifiers: Failure to thrive age range: in adult Qualified Code(s): R62.7 - Adult failure to thrive Base Code: [id number] - Comment: 01/04/17- Patient exhibiting failure to thrive. patient lives with her Daughter and she reports progressive decrease in appetite and this week has not eaten more than a few bites of food. Continues to lose weight and is 78lb, cachetic appearing. UA negative, CT abdomen negative, labs unremarkable. Was up to date on her Cscopes through 76yo. Suspect this is secondary to dementia thas has been significantly progressive over the past 4 months. -consult nutrition -consult SW -discussed with daughter, and patient need to have goals of care meeting with family and they agree. We did discuss briefly the progressive nature of dementia and the effects it can have on physical health as well. We discussed getting nutritional consult and pt/ot consult on board to help determine prognosis and guide post-hospital care planning. won't have multidisciplinary team until friday. (2) Hypoglycemia Current Visit: Yes Status: Acute Base Code: E16.2 - HYPOGLYCEMIA, UNSPECIFIED Comment: 01/04/17- recurrent. glucose of 60 on 01/01 improved with amp D5 while in ED. patient found to have glucose of 45 this morning improved with amp d5. not on any blood glucose medications. daughter reports that patient has not eaten nor has she drank for several days. this is likely due to failure to thrive. -will add D5 to normal saline -accuchecks qid -consult nutrition (3) Generalized weakness Current Visit: Yes Status: Acute Base Code: R53.1 - WEAKNESS Comment: 01/04/17- UA negative, CT abdomen negative. likely 2/2 to malnutrition. chronic anemia and hyponatremia likely contributing. -continue IV fluid resuscitation. sodium improving -continue to monitor hgb for acute change -consult pt/ot to evaulate and make recommendations -consult nutritional services (4) Dementia Current Visit: No Status: Acute Qualifiers: Dementia type: unspecified type Dementia behavioral disturbance: with behavioral disturbance Qualified Code(s): F03.91 - Unspecified dementia with behavioral disturbance Base Code: F03.90 - UNSPECIFIED DEMENTIA WITHOUT BEHAVIORAL DISTURBANCE Comment: 01/04/17- progressive worsening per daughter. 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 Explained to daughter these medications may be contributing her n/v, abdominal pain and decreased appetite. -alma rosa contact patient's pcp on friday to discuss continuation of these medications. Per daughter, they have seen improvement in hallucinations and behavior with these medications but will need to weight benefits vs risk of continued weight loss. (5) Chronic abdominal pain Current Visit: Yes Status: Acute Base Code: R10.9 - UNSPECIFIED ABDOMINAL PAIN; G89.29 - OTHER CHRONIC PAIN Comment: 01/04/17- resolved. patient states she is not having any abdominal pain today and none on exam. CT abdomen from 01/01/17 was negative for acute process. -continue to monitor for pain control (6) Headache Current Visit: Yes Status: Acute Qualifiers: Headache type: unspecified Headache chronicity pattern: acute headache Intractability: not intractable Qualified Code(s): R51 - Headache Base Code: R51 - HEADACHE Comment: 01/04/17- resolved. patient states she no longer has headache. HAs had 3 [address] head scans this week and all have been negative for acute bleeds or other processes. suspect 2/2 trauma and recurring hypoglycemia -continue to monitor for return of headache (7) Nausea Current Visit: Yes Status: Acute Base Code: R11.0 - NAUSEA Comment: 01/04/17- improved. daughter states she never actually vomited but had 3 episodes of dry heaves. CT abdomen from 01/01 was negative. -will add protonix 40mg IV daily for GI prophylaxis (8) Laceration of forehead without complication Current Visit: No Status: Acute Qualifiers: Encounter type: initial encounter Qualified Code(s): S01.81XA - Laceration without foreign body of other part of head, initial encounter Base Code: S01.81XA - LACERATION W/O FOREIGN BODY OF OTH PART OF HEAD, INIT ENCNTR Comment: 01/04/17-laceration repaired with sutures. wound edges are well aproximated and there is no further bleeding. -will continue to monitor and remove sutures tomorrow or friday. (9) DVT prophylaxis Current Visit: Yes Status: Acute Base Code: [id number] - Comment: 01/04/17- patient at high risk with age, however, feel she is also very high bleed risk with generalized weakness and fall this week -will add SCD's while in bed (10) DNR (do not resuscitate) Current Visit: Yes Status: Acute Base Code: Z66 - DO NOT RESUSCITATE Comment: 01/04/17- patient and DPOA request DNR status
[2017-01-04] MEDS: PERPHENAZINE 4 MG PO SCH ×2 (20:38→21:47)
[2017-01-04] MEDS: 0.9 % SODIUM CHLORIDE 10ML SYR IVP SCH (21:49)
[2017-01-04] MEDS ORDERED: LORAZEPAM 2 MG/ML VIAL IV ONE (22:48)
[2017-01-04] MEDS: MELATONIN 5 MG TABLET PO PRN (23:16)
[2017-01-05 07:18] LABS: BASO % 0.4 % (0-6); EOS % 3.9 % (0-6); GRAN % 69.2 % (47-80); HEMATOCRIT 33.2 % (35.0-47.0); HEMOGLOBIN 11.3 gm/dl (11.6-16.0); LYMPH % 14.3 % (16-45); MEAN CELL VOLUME 91.7 fl (81-97); MEAN CORPUSCULAR HEMOGLOBIN 31.2 pg (27-33); MEAN PLATELET VOLUME 9.4 fl (7.4-10.4); MONO % 12.2 % (0-9); PLATELET COUNT 204 K/uL (130-400); RED BLOOD COUNT 3.62 M/uL (3.80-5.40); RED CELL DISTRIBUTION WIDTH 13.2 % (11.5-14.5); WHITE BLOOD COUNT W/O DIFF 5.7 K/uL (4.2-12.2)
[2017-01-05 07:33] LABS: ALB/GLOB RATIO 1.2 (1.1-1.8); ALBUMIN 3.1 gm/dL (3.5-5.0); ALKALINE PHOSPHATASE 54 U/L (38-126); ALT/SGPT 32 U/L (9-52); ANION GAP 4.7 (7-16); BILIRUBIN,TOTAL 0.28 mg/dL (0.2-1.3); BLOOD UREA NITROGEN 16 mg/dL (7-17); CARBON DIOXIDE 26.3 mmol/L (22-30); CREATININE 0.8 mg/dL (0.52-1.04); EST GLOMERULAR FILTRATION RATE > 60 ml/min; TOTAL PROTEIN 5.6 gm/dL (6.3-8.2)
[2017-01-05 07:34] LABS: AST/SGOT 34 U/L (14-36); GLUCOSE,RANDOM 84 mg/dL (70-110)
--- NOTE | 2017-01-05 09:35 | Physician Progress Note ---
Subjective - Date Date of Physician Progress Note: 01/05/17 - Subjective Subjective Comment: 01/05/17- Patient is resting comforatbly in bed with family at bedside today. Patient had fall out of bed this morning despite bed rails being up and bed alarm. She fell and had contusion with simple laceration of the right shinto near the original laceration. She was seen by ED physician called down at the time of the fall. Head CT and C-spine CT were ordered and cervical collar was placed. Both imaging results were negative for any acute fractures, bleeds or changes from previous imaging. Patient actually tells me that she is feeling much better today. She says she has an appetite and is currently eating toast along with milk and juice without any abdominal pain or nausea. She denies headache, visual changes, neck pain. She is now reporting some right elbow and hip pain. Daughter states she did not sleep well last night but daughter feels she is actually doing better today than yesterday. Objective - Vital Signs Vital Signs: Vital Signs - Last 24 Hrs Pulse Resp BP Pulse Ox 01/05/17 08:59 97 H 12 01/05/17 07:30 97 H 18 152/86 96 - General General Appearance: Alert, Oriented x3, Cooperative, Other (Cachetic appearing) Limitations: No limitations - Head Head exam: Other (healing laceration to the right temporal region, ecchymosis present from recent fall; new laceration just inferior to previou that has been dermabonded) Head exam detail: Contusion, General tenderness, Laceration. negative: Govea' s sign - Eye Eye exam: Normal appearance. negative: Conjunctival injection, Periorbital swelling, Periorbital tenderness, Scleral icterus - ENT Ear exam: negative: Auricular hematoma, Auricular trauma Nasal Exam: negative: Active bleeding, Discharge, Dried blood, Foreign body Mouth exam: negative: Drooling, Laceration, Muffled voice, Tongue elevation - Neck Neck exam: negative: Meningismus, Tenderness - Respiratory Respiratory exam: Normal lung sounds bilaterally. negative: Rales, Respiratory distress, Rhonchi, Stridor - Cardiovascular Cardiovascular Exam: Regular rate, Normal rhythm, Normal heart sounds - GI/Abdominal GI/Abdominal exam: Soft, Normal bowel sounds. negative: Distended, Rebound, Rigid, Tenderness - Rectal Rectal exam: Deferred - exam: Deferred - Extremities Extremities exam: negative: Pedal edema, Tenderness - Back Back exam: Denies: CVA tenderness (R), CVA tenderness (L) - Neurological Neurological exam: Alert, Oriented X3 - Psychiatric Psychiatric exam: Normal affect, Normal mood - Skin Skin exam: Normal color. negative: Abrasion Type of lesion: negative: abrasion Assessment and Plan - Assessment and Plan (1) Failure to thrive Current Visit: Yes Status: Acute Qualifiers: Failure to thrive age range: in adult Qualified Code(s): R62.7 - Adult failure to thrive Base Code: AQI5471 - Comment: 01/05/17- Patient exhibiting failure to thrive. patient lives with her Daughter and she reports progressive decrease in appetite and this week has not eaten more than a few bites of food. Continues to lose weight and is 78lb, cachetic appearing. UA negative, CT abdomen negative, labs unremarkable. Was up to date on her Cscopes through 76yo. Suspect this is secondary to dementia thas has been significantly progressive over the past 4 months. -consult nutrition -consult SW -discussed with daughter, and patient need to have goals of care meeting with family and they agree. We did discuss briefly the progressive nature of dementia and the effects it can have on physical health as well. We discussed getting nutritional consult and pt/ot consult on board to help determine prognosis and guide post-hospital care planning. won't have multidisciplinary team until friday. (2) Fall Current Visit: Yes Status: Acute Base Code: W19.XXXA - UNSPECIFIED FALL, INITIAL ENCOUNTER Comment: 01/05/17- patient had fall from bed this morning despite side rails and bed alarm. alarm did not sound because patient did not weigh enough to set off. Nursing contacted ED physician who came down and evaluated patient immediately. She had stat CT head and C-spine and was placed in Cervical collar until imaging was reported negative for fractures or acute processes. she is now reporting right elbow and hip pain. -patient is now on 1:1 precautions. 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 glucose up to 200 last night before bed. Patient began eating and drinking yesterday afternoon and was tolerating mechanical soft diet. She was saline locked as it was making it difficult to sleep. Fasting glucose today was 85. She is eating and drinking well this morning. -accuchecks qid -consult nutrition -continue saline lock (4) Generalized weakness Current Visit: Yes Status: Acute Base Code: R53.1 - WEAKNESS Comment: 01/05/17- UA negative, CT abdomen negative, CT negative x3. likely 2/2 to malnutrition. chronic anemia and hyponatremia likely contributing. -continue to monitor hgb for acute change -consult pt/ot to evaulate and make recommendations -consult nutritional services. Discussed briefly with daughter perental nutrition, but would like to see how her intake progresses over the next few days (5) Dementia Current Visit: No Status: Acute Qualifiers: Dementia type: unspecified type Dementia behavioral disturbance: with behavioral disturbance Qualified Code(s): F03.91 - Unspecified dementia with behavioral disturbance Base Code: F03.90 - UNSPECIFIED DEMENTIA WITHOUT BEHAVIORAL DISTURBANCE Comment: 01/05/17- progressive worsening per daughter. Had some owning last night per family and staff. 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 Explained to daughter these medications may be contributing her n/v, abdominal pain and decreased appetite. -alma rosa contact patient's pcp on friday to discuss continuation of these medications. Per daughter, they have seen improvement in hallucinations and behavior with these medications but will need to weight benefits vs risk of continued weight loss. -encouraged opening windows today to increase sunlight exposure -add melatonin 5mg po qhs -discussed with family need to avoid naps during the day -ativan 1mg IV qhs ordered as needed for severe agitation (6) Chronic abdominal pain Current Visit: Yes Status: Acute Base Code: R10.9 - UNSPECIFIED ABDOMINAL PAIN; G89.29 - OTHER CHRONIC PAIN Comment: 01/05/17- resolved. patient states she is not having any abdominal pain today and none on exam. CT abdomen from 01/01/17 was negative for acute process. -continue to monitor for pain control (7) Headache Current Visit: Yes Status: Acute Qualifiers: Headache type: unspecified Headache chronicity pattern: acute headache Intractability: not intractable Qualified Code(s): R51 - Headache Base Code: R51 - HEADACHE Comment: 01/05/17- resolved. patient states she not having headache even despite fall she had this morning. HAs had 4 [address] head scans this week and all have been negative for acute bleeds or other processes. -continue to monitor for return of headache (8) Nausea Current Visit: Yes Status: Acute Base Code: R11.0 - NAUSEA Comment: 01/05/17- improved. daughter states she never actually vomited but had 3 episodes of dry heaves. CT abdomen from 01/01 was negative. Did not need to add protonix IV yesterday since she begna eating and drinking and was able to tolerate her po nexium -continue nexium 40mg po daily (9) Laceration of forehead without complication Current Visit: No Status: Acute Qualifiers: Encounter type: initial encounter Qualified Code(s): S01.81XA - Laceration without foreign body of other part of head, initial encounter Base Code: S01.81XA - LACERATION W/O FOREIGN BODY OF OTH PART OF HEAD, INIT ENCNTR Comment: 01/05/17-There is a new laceration just inferior to previous sustained this monring in fall from bed. The laceration was closed using dermabond by Dr. Zarate, ED physician available at the time of fall. Previous laceration repaired with sutures. wound edges are well aproximated and there is no further bleeding. -will continue to monitor and remove sutures friday. (10) DVT prophylaxis Current Visit: Yes Status: Acute Base Code: [id number] - Comment: 01/05/17- patient at high risk with age, however, feel she is also very high bleed risk with generalized weakness and fall this week and another fall this morning from bed -will add SCD's while in bed (11) DNR (do not resuscitate) Current Visit: Yes Status: Acute Base Code: Z66 - DO NOT RESUSCITATE Comment: 01/05/17- patient and DPOA request DNR status Results - Labs Result Diagrams: 01/05/17 07:13 01/05/17 07:13 Labs Last 24 Hours: Laboratory Results - last 24 hr 01/05/17 01/05/17 07:13 07:13 WBC 5.7 RBC 3.62 L Hgb 11.3 L Hct 33.2 L MCV 91.7 MCH 31.2 MCHC 34.0 RDW 13.2 Plt Count 204 MPV 9.4 Gran % 69.2 Lymphocytes % 14.3 L Monocytes % 12.2 H Eosinophils % 3.9 Basophils % 0.4 Sodium 127 L Potassium 4.3 Chloride 96 L Carbon Dioxide 26.3 Anion Gap 4.7 L BUN 16 Creatinine 0.8 Estimated GFR > 60 Random Glucose 84 Calcium 8.6 Total Bilirubin 0.28 AST 34 ALT 32 Alkaline Phosphatase 54 Total Protein 5.6 L Albumin 3.1 L Globulin 2.5 Albumin/Globulin Ratio 1.2 DVT/PE Assessment - Risk for VTE Risk for VTE: No Risk Level: High Risk Assessment Date: 01/04/17 Risk Assessment Time: 16:32 VTE Orders Placed or Will Be Placed: No VTE Reason for No Prophylaxis: Contraindicated - Active Medicaitons Current Medications: Current Medications Acetaminophen (Tylenol 500mg Tab) 500 mg PO Q6H PRN PRN Reason: PAIN/TEMP Donepezil HCl (Aricept) 5 mg PO DAILY COUNTS INCLUDE 234 BEDS AT THE [facility] Last Admin: 01/04/17 10:36 Dose: 5 mg Melatonin (Melatonin) 5 mg PO QHS PRN PRN Reason: sleep Last Admin: 01/04/17 23:16 Dose: 5 mg Metoprolol Succinate (Toprol Xl) 25 mg PO DAILY COUNTS INCLUDE 234 BEDS AT THE [facility] Last Admin: 01/04/17 10:37 Dose: 25 mg Patient Own Med: (Esomeprazole 40 Mg) 1 each PO DAILYAC COUNTS INCLUDE 234 BEDS AT THE [facility] Last Admin: 01/04/17 13:03 Dose: Not Given Patient Own Med: (Raloxifene 60 Mg) 1 each PO DAILY COUNTS INCLUDE 234 BEDS AT THE [facility] Last Admin: 01/04/17 13:05 Dose: Not Given Patient Own Med: (Vesicare 10 Mg) 1 each PO DAILY COUNTS INCLUDE 234 BEDS AT THE [facility] Last Admin: 01/04/17 13:06 Dose: Not Given Patient Own Med: (Eckerman Thyroid 60 Mg) 1 each PO DAILYTHY COUNTS INCLUDE 234 BEDS AT THE [facility] Last Admin: 01/04/17 13:02 Dose: Not Given Patient Own Med: (Perphenazine 4 Mg) 1 each PO QHS COUNTS INCLUDE 234 BEDS AT THE [facility] Last Admin: 01/04/17 21:47 Dose: Not Given Sodium Chloride () 10 ml IVP Q12H COUNTS INCLUDE 234 BEDS AT THE [facility] Last Admin: 01/04/17 21:49 Dose: 10 ml Valsartan (Diovan) 40 mg PO DAILY COUNTS INCLUDE 234 BEDS AT THE [facility] Last Admin: 01/04/17 13:02 Dose: Not Given Verapamil HCl (Calan Sr) 120 mg PO DAILY LIZETTE Last Admin: 01/04/17 13:01 Dose: 120 mg AMI Plan - Labs Result Diagrams: 01/05/17 07:13 01/05/17 07:13
[2017-01-05] MEDS: VERAPAMIL ER 120 MG TABLET PO SCH (09:42)
[2017-01-05] MEDS: VALSARTAN 80 MG TAB PO SCH (09:42)
[2017-01-05] MEDS: DONEPEZIL HCL 5 MG TABLET PO SCH (09:42)
[2017-01-05] MEDS: PATIENT OWN MED: ESOMEPRAZOLE 40 MG PO SCH (09:44)
[2017-01-05] MEDS: ARMOUR THYROID 60 MG PO SCH (09:44)
[2017-01-05] MEDS: 0.9 % SODIUM CHLORIDE 10ML SYR IVP SCH ×2 (09:45→21:51)
[2017-01-05] MEDS: PATIENT OWN MED: VESICARE 10 MG PO SCH (09:45)
[2017-01-05] MEDS: PATIENT OWN MED: RALOXIFENE 60 MG PO SCH (09:45)
[2017-01-05] MEDS: METOPROLOL SUCC 25 MG TAB.ER PO SCH (09:46)
[2017-01-05] MEDS ORDERED: PANTOPRAZOLE SODIUM IV 40 MG VIAL IVP SCH (10:30)
[2017-01-05] MEDS: ACETAMINOPHEN 500 MG TABLET PO PRN ×2 (13:32→17:08)
[2017-01-05] MEDS: PERPHENAZINE 4 MG PO SCH (21:49)
[2017-01-06] MEDS: ACETAMINOPHEN 500 MG TABLET PO PRN (02:38)
[2017-01-06] MEDS: ARMOUR THYROID 60 MG PO SCH (06:15)
[2017-01-06] MEDS: PATIENT OWN MED: ESOMEPRAZOLE 40 MG PO SCH (06:15)
[2017-01-06 06:37] LABS: BASO % 0.4 % (0-6); EOS % 5.5 % (0-6); GRAN % 59.1 % (47-80); HEMATOCRIT 32.7 % (35.0-47.0); HEMOGLOBIN 11.3 gm/dl (11.6-16.0); LYMPH % 24.7 % (16-45); MEAN CELL VOLUME 91.1 fl (81-97); MEAN CORPUSCULAR HGB CONC 34.6 g/dl (32-36); MEAN PLATELET VOLUME 9.5 fl (7.4-10.4); MONO % 10.3 % (0-9); PLATELET COUNT 186 K/uL (130-400); RED BLOOD COUNT 3.59 M/uL (3.80-5.40); RED CELL DISTRIBUTION WIDTH 12.8 % (11.5-14.5); WHITE BLOOD COUNT W/O DIFF 4.7 K/uL (4.2-12.2)
[2017-01-06 06:40] LABS: MEAN CORPUSCULAR HEMOGLOBIN 31.4 pg (27-33)
[2017-01-06 06:53] LABS: ALB/GLOB RATIO 1.1 (1.1-1.8); ALBUMIN 2.8 gm/dL (3.5-5.0); ALKALINE PHOSPHATASE 49 U/L (38-126); ALT/SGPT 26 U/L (9-52); ANION GAP 2.6 (7-16); AST/SGOT 38 U/L (14-36); BILIRUBIN,TOTAL 0.28 mg/dL (0.2-1.3); BLOOD UREA NITROGEN 15 mg/dL (7-17); CARBON DIOXIDE 28.4 mmol/L (22-30); GLUCOSE,RANDOM 76 mg/dL (70-110); TOTAL PROTEIN 5.3 gm/dL (6.3-8.2)
[2017-01-06 07:10] LABS: CREATININE 0.8 mg/dL (0.52-1.04); EST GLOMERULAR FILTRATION RATE > 60 ml/min
--- NOTE | 2017-01-06 08:21 | CT SCAN REPORT ---
EXAM: HEAD CT WITHOUT CONTRAST HISTORY: HEADACHE AND VOMITING. TECHNIQUE: Contiguous axial images from the cerebral convexities to the foramen magnum were obtained without contrast. Comparison: Head CT 01/01/17. Encounter: Initial. FINDINGS: Mild generalized atrophy of the brain. No acute intracranial hemorrhage, mass effect, or midline shift. No CT evidence of acute infarct. Mild decreased attenuation in the periventricular white matter of the cerebral hemispheres. The ventricles, basal cisterns and sulci are within normal limits. The osseous structures, soft tissues, and paranasal sinuses are unremarkable. IMPRESSION: 1. NO ACUTE INTRACRANIAL PROCESS WITH NO CHANGE. 2. MILD GENERALIZED ATROPHY OF THE BRAIN WITH MILD CHRONIC SMALL VESSEL ISCHEMIC CHANGE. J[facility]BER: [id number] [facility]
--- NOTE | 2017-01-06 08:26 | CT SCAN REPORT ---
EXAM: CT SCAN OF THE BRAIN WITHOUT CONTRAST HISTORY: RIGHT PERIORBITAL PAIN STATUS POST FALL. TRAUMA. TECHNIQUE: Standard CT imaging of the brain was performed in the axial plane without contrast. Additional coronal and sagittal reformatted images were also performed. Comparison: 01/03/17. Encounter: Initial. FINDINGS: There is mild generalized atrophy. The ventricles and subarachnoid spaces are otherwise normal. Mild chronic small vessel ischemic changes are present within the periventricular and subcortical white matter at both cerebral hemispheres. There is no mass, mass effect, intracranial hemorrhage, visible acute infarct, or abnormal extraaxial fluid. The skull is intact. The orbits, sinuses, and mastoids are normal. There is mild right lateral and inferior periorbital soft tissue swelling. A small amount of soft tissue air is present along the right inferolateral periorbital soft tissues. IMPRESSION: 1. MILD RIGHT PERIORBITAL SOFT TISSUE SWELLING. 2. NO ACUTE INTRACRANIAL ABNORMALITY OR SKULL FRACTURE. 3. STABLE ATROPHY AND CHRONIC SMALL VESSEL ISCHEMIC CHANGES. JOB NUMBER: [id number] [facility]
--- NOTE | 2017-01-06 08:32 | CT SCAN REPORT ---
EXAM: CT SCAN OF THE CERVICAL SPINE WITHOUT CONTRAST HISTORY: STATUS POST FALL. RIGHT PERIORBITAL TRAUMA. TECHNIQUE: Standard CT imaging of the cervical spine was performed in the axial plane without contrast. Additional coronal and sagittal reformatted images were also performed. Comparison: 12/31/16. Encounter: Initial. FINDINGS: There is normal cervical lordosis. The craniocervical and cervicothoracic junctions are normal. There is minor anterolisthesis of C4 on C5 as well as C5 on C6 secondary to bilateral facet arthropathy. This is unchanged. There is moderate disk space narrowing of the C6-C7 level with associated end plate degenerative change. Facet arthropathy is present throughout. Degenerative changes are present at the atlantodental articulation. There is borderline to mild central canal stenosis at the C6-C7 level. There is no acute fracture, subluxation, or prevertebral soft tissue swelling. The neck soft tissues appear within normal limits. Pleural and parenchymal scarring are present at the lung apices and appear unchanged. IMPRESSION: 1. 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 2. NO ACUTE CERVICAL SPINE PATHOLOGY. JOB NUMBER: [id number] [facility]
--- NOTE | 2017-01-06 08:34 | RADIOLOGY REPORT ---
EXAM: RIGHT ELBOW HISTORY: RIGHT ELBOW PAIN STATUS POST FALL. TECHNIQUE: Three views of the right elbow were obtained. Comparison: Right forearm series from the same date. Encounter: Initial. FINDINGS: The bones are diffusely osteopenic, but appear intact. There is no acute fracture or dislocation. Mild enthesophyte formation is present at the olecranon process. No other significant degenerative changes are appreciated. There is no elbow effusion. IMPRESSION: 1. DIFFUSE OSTEOPENIA. 2. NO ACUTE RIGHT ELBOW PATHOLOGY. JOB NUMBER: [id number] [facility]
[2017-01-06] MEDS: ACETAMINOPHEN 325 MG TAB PO PRN ×2 (08:43→18:11)
--- NOTE | 2017-01-06 08:43 | RADIOLOGY REPORT ---
EXAM: RIGHT FOREARM HISTORY: RIGHT FOREARM PAIN STATUS POST FALL. BRUISING FROM THE ELBOW DOWN THE FOREARM. TECHNIQUE: AP and lateral views of the right forearm were obtained. Comparison: Right elbow series from the same date. FINDINGS: The bones are diffusely osteopenic, but appear intact. There is no fracture or dislocation. No focal soft tissue abnormalities are identified. IMPRESSION: 1. NO FRACTURE IDENTIFIED. 2. DIFFUSE OSTEOPENIA. JOB NUMBER: [id number] [facility]
--- NOTE | 2017-01-06 08:46 | RADIOLOGY REPORT ---
EXAM: RIGHT HIP WITH PELVIS HISTORY: RIGHT HIP PAIN, UNWITNESSED FALL. TECHNIQUE: Two views of the right hip and pelvis were obtained. Comparison: None. FINDINGS: No fracture or acute osseous abnormality identified. There are moderate arthritic changes in the right hip. Moderate arthritic changes in the left hip. No destructive or erosive change. Electronic device overlies the right pelvis. IMPRESSION: 1. NO FRACTURE IS SEEN. 2. MODERATE ARTHRITIC CHANGES IN BOTH HIPS. JOB NUMBER: [id number] [facility]
[2017-01-06] MEDS: 0.9 % SODIUM CHLORIDE 10ML SYR IVP SCH (09:19)
[2017-01-06] MEDS: DONEPEZIL HCL 5 MG TABLET PO SCH (09:20)
[2017-01-06] MEDS: VERAPAMIL ER 120 MG TABLET PO SCH (09:21)
[2017-01-06] MEDS: VALSARTAN 80 MG TAB PO SCH (09:21)
[2017-01-06] MEDS: PATIENT OWN MED: VESICARE 10 MG PO SCH (09:22)
[2017-01-06] MEDS: PATIENT OWN MED: RALOXIFENE 60 MG PO SCH (09:22)
[2017-01-06] MEDS: METOPROLOL SUCC 25 MG TAB.ER PO SCH (09:23)
--- NOTE | 2017-01-06 09:59 | Rehab Evaluation ---
Patient Information - Patient Information Diagnosis: generalized weakness, ROB, dehydration, unintentional wt. loss Ordered Treatment: OT Evaluate and Treat Status: Initial Evaluation Surgery: No History: Detail (Pt admitted from ED on 01/03/17 with c/o nausea and vomiting, diarrhea, recent fall.) Past Medical/Surgical Hx: PMH - Respiratory Hx Respiratory Disorders No PMH - Cardiovascular Hx Cardiovascular Disorders Yes Hx Hypertension Yes PMH - Neuro Hx Neurological Disorders Yes Hx Dizziness Yes Hx Headaches Yes Comment: memory loss due to weight loss per daughter of pt PMH - GI Hx Gastrointestinal Disorders Yes Hx Pancreatitis Yes Hx Weight Loss/Weight Gain Yes: loss PMH - Hx Genitourinary Disorders No Patient No PMH - Endocrine Hx Endocrine Disorders Yes Hx Thyroid Disease Yes PMH - Musculoskeletal Hx Musculoskeletal Disorders No PMH - Psych Hx Psychiatric Problems No PMH - Hematology/Oncology Hx Hematology/Oncology No Disorders Premorbid Status: Detail (Pt lives with spouse in a 1 story house with 2 steps and one handrailing at the entrance. She has a walk in shower with a built in seat and a standard height toilet without grab bars. Prior to admission she was Ind with showering and dressing, spouse and daughters completed home mgmt, meal prep and laundry tasks. She has a 4 wheeled walker but is inconsistent about using it.) Social History: Detail (Pt has a supportive spouse and 2 supportive daughters who were present during the evaluation.) Precautions: Turner, Fall, Other (decreased cognition, DNR) - Time With Patient Total Time Spent With Patient (Min): 30 Treatment Procedures: Detail (OT eval moderate complexity) Subjective Information - Subjective Information Per Patient, Other (Per spouse and 2 daughters.) Objective Data - Pain Pain Present: No - Mental Status Patient Orientation: Person, Place (Pt oriented to self, hospital, [place] , December, birthday but not year or age. She was able to follow all verbal commands during evaluation. Several answers were corrected by family.) - Visual Perception Appears within normal limits for therapeutic activities (Pt wears glasses "when she wants to see something".) - ROM Within normal limits (Luis Alberto UE AROM WNL) - Strength/Tone Within normal limits (Luis Alberto UE MMT 4/5 throughout) - Coordination Appears within normal limits for therapeutic activities - Bed Mobility Independent (Ind with supine to sit.) - Transfers Needs Assist (CG for sit to stand due to dizziness and mild unsteadiness.) - Balance Balance Sitting: Fair Balance Standing: Fair (Pt reports dizziness when sitting up and with standing.) - Sensation Intact - Gait Detail (Pt able to amb 50 feet with 2 wheeled walker and CG assist. Pt was slightly unsteady but was able to maintain balance with use of walker.) - ADL's/IADL's Detail (Pt completing toileting with assist from nursing or family members. Other ADLs not formally assessed.) Therapy Assessment - Therapy Assessment Detail (Pt presents with impaired cognition, decreased Ind with self cares, impaired functional mobility/balance and decreased endurance needed for safe and Ind self cares.) Problem List - Problem List Occupational Therapy Problem List: Detail (1. Decreased Ind with self cares 2. Decreased functional mobility needed for safe and Ind self care activities 3. Decreased endurance needed for safe and Ind self care activities) Goals - Goals Occupational Therapy Goals: 1. Pt will be Ind with total body dressing 2. Pt will be safe and Ind with functional mobility needed for self care activities 3. Pt will participate in strengthening and endurance activities to maximize safety and Ind with self cares and functional mobility. Prognosis - Prognosis Moderate Plan - Plan Occupational Therapy Plan: Ot 2-4 days per week to address overall endurance, functional mobility, self care activities. Pt would benefit from IP rehab stay to maximize her safety and Ind with ADLs and functional mobility.
--- NOTE | 2017-01-06 11:51 | Physician Progress Note ---
Subjective - Date Date of Physician Progress Note: 01/06/17 - Subjective Subjective Comment: Patient states she feels a little dizzy today but otherwise is doing well. She got up and walked with walker, 2 person assist with PT/OT today. Her appetite has improved she did eat some throughout the day yesterday. elbow and hip pain improved with tylenol. She denies cough, chest pain, headache, abdominal pain, or lower extremity swelling. Objective - Vital Signs Vital Signs: Vital Signs - Last 24 Hrs Temp Pulse Resp BP BP Pulse Ox 01/06/17 10:29 97.4 F L 146/76 01/06/17 08:00 97.4 F L 85 16 146/76 98 01/05/17 20:00 98.0 F 83 18 117/56 98 01/05/17 15:49 97.6 F 87 16 138/69 98 - General General Appearance: Alert, Oriented x3, Cooperative, Other (Cachetic appearing) Limitations: No limitations - Head Head exam: Other (healing laceration to the right temporal region, ecchymosis present from recent fall; newer laceration just inferior to previous that has been dermabonded) Head exam detail: Contusion, General tenderness, Laceration. negative: Govea' s sign - Eye Eye exam: Normal appearance. negative: Conjunctival injection, Periorbital swelling, Periorbital tenderness, Scleral icterus - ENT Ear exam: negative: Auricular hematoma, Auricular trauma Nasal Exam: negative: Active bleeding, Discharge, Dried blood, Foreign body Mouth exam: negative: Drooling, Laceration, Muffled voice, Tongue elevation - Neck Neck exam: negative: Meningismus, Tenderness - Respiratory Respiratory exam: Normal lung sounds bilaterally. negative: Rales, Respiratory distress, Rhonchi, Stridor - Cardiovascular Cardiovascular Exam: Regular rate, Normal rhythm, Normal heart sounds - GI/Abdominal GI/Abdominal exam: Soft, Normal bowel sounds. negative: Distended, Rebound, Rigid, Tenderness - Rectal Rectal exam: Deferred - exam: Deferred - Extremities Extremities exam: negative: Pedal edema, Tenderness - Back Back exam: Denies: CVA tenderness (R), CVA tenderness (L) - Neurological Neurological exam: Alert, Oriented X3 - Psychiatric Psychiatric exam: Normal affect, Normal mood - Skin Skin exam: Normal color. negative: Abrasion Type of lesion: negative: abrasion Assessment and Plan - Assessment and Plan (1) Failure to thrive Current Visit: Yes Status: Acute Qualifiers: Failure to thrive age range: in adult Qualified Code(s): R62.7 - Adult failure to thrive Base Code: [id number] - Comment: 01/06/17- Patient's appetite improved and she did eat small amounts of food throughout the day. glucoes improved and remained stable >70 however she did have some new electrolyte abnormalities (low mg, phohphorus, sodium and chloride) noted today. Concern for possible re-feeding syndrome. no edema on exam. nutrition and SW evaluated patient today. -replace electrolytes according to protocol. -magnesium 400mg po TID x3 doses -thiamine 100mg po bid x 6 doses -normal saline run at 50cc/hr. -oral phosphorus replacement with skim milk (15mmol per 480ml) dosed at 1mmol/ kg over 3 doses. She will need 3 480ml servings of skim milk over the next 24H. Pharmacy ordering IV phosphorus as we do not currently carry on formulary. -recheck BMP at 1800 -cardiac monitoring -decrease caloric intake until electrolytes improve. (2) Fall Current Visit: Yes Status: Acute Base Code: W19.XXXA - UNSPECIFIED FALL, INITIAL ENCOUNTER Comment: 01/06/17- 2 falls this past week. PT/OT working with patient. XR of right hip and elbow negative for fracture. -patient is now on 1:1 precautions. Family is working to have someone present wtih her throughout day and scene shifter -continue bed and chair alarms and fall precautions (3) Hypoglycemia Current Visit: Yes Status: Acute Base Code: E16.2 - HYPOGLYCEMIA, UNSPECIFIED Comment: 01/06/17- Improved with patient's oral intake, however, there is concern for refeeding syndrome. Will need to scale back caloric intake. -continue accuchecks qid -nutrition consulted (4) Generalized weakness Current Visit: Yes Status: Acute Base Code: R53.1 - WEAKNESS Comment: 01/06/17- UA negative, CT abdomen negative, CT negative x3. likely 2/2 to malnutrition. chronic anemia and hyponatremia likely contributing. -continue to monitor hgb for acute change -continue pt/ot daily. will likely need RANDAL vs residential care (5) Dementia Current Visit: No Status: Acute Qualifiers: Dementia type: unspecified type Dementia behavioral disturbance: with behavioral disturbance Qualified Code(s): F03.91 - Unspecified dementia with behavioral disturbance Base Code: F03.90 - UNSPECIFIED DEMENTIA WITHOUT BEHAVIORAL DISTURBANCE Comment: 01/06/17- stable. Slept well last night with daughter at bedside. she has had progressive worsening over the past few months per daughter. 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 Explained to daughter these medications may be contributing her n/v, abdominal pain and decreased appetite. Per daughter, they have seen improvement in hallucinations and behavior with these medications but will need to weight benefits vs risk of continued weight loss. She has had improved appetite today and yesterday. -encouraged opening windows today to increase sunlight exposure -add melatonin 5mg po qhs -discussed with family need to avoid naps during the day -ativan 1mg IV qhs ordered as needed for severe agitation (6) Chronic abdominal pain Current Visit: Yes Status: Resolved Base Code: R10.9 - UNSPECIFIED ABDOMINAL PAIN; G89.29 - OTHER CHRONIC PAIN Comment: 01/06/17- resolved. patient states she is not having any abdominal pain today and none on exam. CT abdomen from 01/01/17 was negative for acute process. -continue to monitor for pain control (7) Headache Current Visit: Yes Status: Acute Qualifiers: Headache type: unspecified Headache chronicity pattern: acute headache Intractability: not intractable Qualified Code(s): R51 - Headache Base Code: R51 - HEADACHE Comment: 01/06/17- resolved. patient states she not having headache even despite fall she had this morning. HAs had 4 [address] head scans this week and all have been negative for acute bleeds or other processes. -continue to monitor for return of headache (8) Nausea Current Visit: Yes Status: Acute Base Code: R11.0 - NAUSEA Comment: 01/06/17- improved. -continue nexium 40mg po daily (9) Laceration of forehead without complication Current Visit: No Status: Acute Qualifiers: Encounter type: initial encounter Qualified Code(s): S01.81XA - Laceration without foreign body of other part of head, initial encounter Base Code: S01.81XA - LACERATION W/O FOREIGN BODY OF OTH PART OF HEAD, INIT ENCNTR Comment: 01/06/17- routine healing. -removed sutures from laceration obtained 6 days ago. wounde edges were well approximated -laceration from yesterday remains dermabonded and appears to be healing well. no continued bleeding (10) DVT prophylaxis Current Visit: Yes Status: Acute Base Code: [id number] - Comment: 01/06/17- patient at high risk with age, however, feel she is also very high bleed risk with generalized weakness and fall this week and another fall this morning from bed -will add SCD's while in bed (11) DNR (do not resuscitate) Current Visit: Yes Status: Acute Base Code: Z66 - DO NOT RESUSCITATE Comment: 01/06/17- patient and DPOA request DNR status Results - Labs Result Diagrams: 01/06/17 06:25 01/06/17 06:25 Labs Last 24 Hours: Laboratory Results - last 24 hr 01/05/17 01/05/17 01/06/17 11:30 17:00 06:25 WBC 4.7 RBC 3.59 L Hgb 11.3 L Hct 32.7 L MCV 91.1 MCH 31.4 MCHC 34.6 RDW 12.8 Plt Count 186 MPV 9.5 Gran % 59.1 Lymphocytes % 24.7 Monocytes % 10.3 H Eosinophils % 5.5 Basophils % 0.4 Sodium Potassium Chloride Carbon Dioxide Anion Gap BUN Creatinine Estimated GFR POC Glucose 102 91 Random Glucose Calcium Phosphorus Magnesium Total Bilirubin AST ALT Alkaline Phosphatase Total Protein Albumin Globulin Albumin/Globulin Ratio 01/06/17 01/06/17 06:25 06:25 WBC RBC Hgb Hct MCV MCH MCHC RDW Plt Count MPV Gran % Lymphocytes % Monocytes % Eosinophils % Basophils % Sodium 121 L Potassium 4.8 Chloride 90 L Carbon Dioxide 28.4 Anion Gap 2.6 L BUN 15 Creatinine 0.8 Estimated GFR > 60 POC Glucose Random Glucose 76 Calcium 8.2 L Phosphorus 1.5 L Magnesium 1.2 L Total Bilirubin 0.28 AST 38 H ALT 26 Alkaline Phosphatase 49 Total Protein 5.3 L Albumin 2.8 L Globulin 2.5 Albumin/Globulin Ratio 1.1 DVT/PE Assessment - Risk for VTE Risk for VTE: No Risk Level: High Risk Assessment Date: 01/04/17 Risk Assessment Time: 16:32 VTE Orders Placed or Will Be Placed: No VTE Reason for No Prophylaxis: Contraindicated - Active Medicaitons Current Medications: Current Medications Acetaminophen (Tylenol 325mg) 325 mg PO Q6H PRN PRN Reason: PAIN/TEMP Last Admin: 01/06/17 08:43 Dose: 325 mg Donepezil HCl (Aricept) 5 mg PO DAILY [facility] Last Admin: 01/06/17 09:20 Dose: 5 mg Magnesium Oxide (Mag Ox) 400 mg PO TID [facility] Stop: 01/06/17 22:01 Melatonin (Melatonin) 5 mg PO QHS PRN PRN Reason: sleep Last Admin: 01/04/17 23:16 Dose: 5 mg Metoprolol Succinate (Toprol Xl) 25 mg PO DAILY [facility] Last Admin: 01/06/17 09:23 Dose: 25 mg Patient Own Med: (Esomeprazole 40 Mg) 1 each PO DAILYAC [facility] Last Admin: 01/06/17 06:15 Dose: 1 each Patient Own Med: (Raloxifene 60 Mg) 1 each PO DAILY [facility] Last Admin: 01/06/17 09:22 Dose: 1 each Patient Own Med: (Vesicare 10 Mg) 1 each PO DAILY [facility] Last Admin: 01/06/17 09:22 Dose: 1 each Patient Own Med: ([place] Thyroid 60 Mg) 1 each PO DAILYTHY [facility] Last Admin: 01/06/17 06:15 Dose: 1 each Patient Own Med: (Perphenazine 4 Mg) 1 each PO QHS [facility] Last Admin: 01/05/17 21:49 Dose: 1 each Sodium Chloride () 10 ml IVP Q12H [facility] Last Admin: 01/06/17 09:19 Dose: Not Given Valsartan (Diovan) 40 mg PO DAILY [facility] Last Admin: 01/06/17 09:21 Dose: 40 mg Verapamil HCl (Calan Sr) 120 mg PO DAILY [facility] Last Admin: 01/06/17 09:21 Dose: 120 mg AMI Plan - Labs Result Diagrams: 01/06/17 06:25 01/06/17 06:25
[2017-01-06] MEDS: THIAMINE MONONITRATE 100 MG TABLET PO SCH ×2 (13:02→22:03)
[2017-01-06] MEDS: MAGNESIUM OXIDE 400 MG TABLET PO SCH ×3 (13:02→22:03)
--- NOTE | 2017-01-06 13:03 | Rehab Evaluation ---
Patient Information - Patient Information Diagnosis: generalized weakness, ROB, dehydration, unintentional wt. loss Ordered Treatment: PT Evaluate and Treat Status: Initial Evaluation Surgery: No History: Detail (Pt admitted from ED on 01/03/17 with c/o nausea and vomiting, diarrhea, recent fall.) Past Medical/Surgical Hx: PMH - Respiratory Hx Respiratory Disorders No PMH - Cardiovascular Hx Cardiovascular Disorders Yes Hx Hypertension Yes PMH - Neuro Hx Neurological Disorders Yes Hx Dizziness Yes Hx Headaches Yes Comment: memory loss due to weight loss per daughter of pt PMH - GI Hx Gastrointestinal Disorders Yes Hx Pancreatitis Yes Hx Weight Loss/Weight Gain Yes: loss PMH - Hx Genitourinary Disorders No Patient No PMH - Endocrine Hx Endocrine Disorders Yes Hx Thyroid Disease Yes PMH - Musculoskeletal Hx Musculoskeletal Disorders No PMH - Psych Hx Psychiatric Problems No PMH - Hematology/Oncology Hx Hematology/Oncology No Disorders Premorbid Status: Detail (Pt lives with spouse in a 1 story house with 2 steps and one handrailing at the entrance. She has a walk in shower with a built in seat and a standard height toilet without grab bars. Prior to admission she was Ind with showering and dressing, spouse and daughters completed home mgmt, meal prep and laundry tasks. She has a 4 wheeled walker but is inconsistent about using it.) Social History: Detail (Pt has a supportive spouse and 2 supportive daughters who were present during the evaluation.) Precautions: Squire, Fall, Other (decreased cognition, DNR) - Time With Patient Total Time Spent With Patient (Min): 25 Treatment Procedures: Detail (PT Initial Evaluation.) Subjective Information - Subjective Information Per Patient (The patient had no complaints of pain. The patient had complaints of lightheadness.) Objective Data - Mental Status Patient Orientation: Person (The patient knew she was in the hospital but was unsure of which one. The patient knew her birthday and month but not year or her age.) - ROM Within normal limits (The patient's LE AROM was WFL.) - Strength/Tone Not within normal limits (The patient's LE strength was bilateral hip musculature 4+/5, bilateral knee musculature : Quadriceps 4/5, hamstrings 4-/5, bilateral ankle musculature 4/5. Refer to OT note for UE strength.) - Bed Mobility Independent (The patient was independent with supine to and from sit transfer with head of bed raised.) - Transfers Needs Assist (The patient required supervision for safety with sit to and from stand transfer and pulled up on walker instead of pushing up from surface.) - Balance Balance Sitting: Good Balance Standing: Fair (The patient required walker for support. The patient's Balance was not formally tested using objective balance assessments.) - Gait Detail (The patient ambulated with wheeled walker a distance of 45 feet x1 with CG/SBA for safety. The patient requested to go back to bed. Bed Alarm was set.) Therapy Assessment - Therapy Assessment Detail (The patient has LE weakness and decreased ability to complete sustained physical activity. The patient required supervision for safety with all mobility activities due to lightheadness and cognitive status. Due to the patient's comorbidities, personal factors and evolving medical status ( the patient is losing weight steadily) the PT evaluation complexity is rated as moderate. Feel the patient would benefit from ongoing Rehab to improve her functional level in a subacute rehab facility , possibly with nursing home care beds.) Problem List - Problem List Physical Therapy Problem List: Detail (1) Decreased Balance 2) Decreased LE strength 3) Supervision to CG with ambulation and transfers 4) Decrease ability to complete sustained physical activity) Occupational Therapy Problem List: Detail (1. Decreased Ind with self cares 2. Decreased functional mobility needed for safe and Ind self care activities 3. Decreased endurance needed for safe and Ind self care activities) Goals - Goals Physical Therapy Goals: 1) Evaluate Balance using Tinetti Assessment Tool. 2) Increase LE 1/3 muscle grade to improve stability of gait. 3) The patient will ambulate with assistive device a distance of 100 feet with supervision for safety. 4) Independent/supervision for safety with all transfers. 5) The patient will tolerate 30 minutes of physical activity with one rest period. Occupational Therapy Goals: 1. Pt will be Ind with total body dressing 2. Pt will be safe and Ind with functional mobility needed for self care activities 3. Pt will participate in strengthening and endurance activities to maximize safety and Ind with self cares and functional mobility. Prognosis - Prognosis Moderate Plan - Plan Physical Therapy Plan: PT one time a day M-F for balance and LE strengthening exercises, transfer and gait training. Occupational Therapy Plan: Ot 2-4 days per week to address overall endurance, functional mobility, self care activities. Pt would benefit from IP rehab stay to maximize her safety and Ind with ADLs and functional mobility.
[2017-01-06] MEDS: ONDANSETRON HCL IV 4 MG/2 ML VIAL IVP PRN (15:44)
[2017-01-06] MEDS ORDERED: 0.9 % SODIUM CHLORIDE 1000ML 1,000 ML IV PRN (18:05)
[2017-01-06 18:33] LABS: ANION GAP 3.9 (7-16); BLOOD UREA NITROGEN 19 mg/dL (7-17); CARBON DIOXIDE 27.1 mmol/L (22-30); CREATININE 0.8 mg/dL (0.52-1.04); EST GLOMERULAR FILTRATION RATE > 60 ml/min; GLUCOSE,RANDOM 98 mg/dL (70-110)
[2017-01-06] MEDS: PERPHENAZINE 4 MG PO SCH (22:03)
[2017-01-07] MEDS: ARMOUR THYROID 60 MG PO SCH (06:02)
[2017-01-07] MEDS: PATIENT OWN MED: ESOMEPRAZOLE 40 MG PO SCH (06:02)
[2017-01-07] MEDS: ACETAMINOPHEN 325 MG TAB PO PRN ×2 (06:37→20:34)
[2017-01-07 06:45] LABS: BASO % 0.3 % (0-6); EOS % 4.9 % (0-6); GRAN % 59.7 % (47-80); HEMATOCRIT 29.1 % (35.0-47.0); MEAN CELL VOLUME 90.9 fl (81-97); MEAN CORPUSCULAR HGB CONC 34.4 g/dl (32-36); MEAN PLATELET VOLUME 10.1 fl (7.4-10.4); MONO % 10.1 % (0-9); PLATELET COUNT 176 K/uL (130-400); RED CELL DISTRIBUTION WIDTH 12.7 % (11.5-14.5); WHITE BLOOD COUNT W/O DIFF 3.9 K/uL (4.2-12.2)
[2017-01-07 06:47] LABS: MEAN CORPUSCULAR HEMOGLOBIN 31.2 pg (27-33)
[2017-01-07 07:01] LABS: ALB/GLOB RATIO 1.1 (1.1-1.8); ALBUMIN 2.6 gm/dL (3.5-5.0); ALKALINE PHOSPHATASE 48 U/L (38-126); ALT/SGPT 31 U/L (9-52); ANION GAP 3.1 (7-16); AST/SGOT 43 U/L (14-36); BILIRUBIN,TOTAL 0.28 mg/dL (0.2-1.3); BLOOD UREA NITROGEN 18 mg/dL (7-17); CARBON DIOXIDE 28.9 mmol/L (22-30); CREATININE 0.8 mg/dL (0.52-1.04); EST GLOMERULAR FILTRATION RATE > 60 ml/min; GLUCOSE,RANDOM 75 mg/dL (70-110); TOTAL PROTEIN 4.9 gm/dL (6.3-8.2)
--- NOTE | 2017-01-07 08:29 | Occupational Therapy Tx Note ---
Occupational Therapy Tx Note - Treatment Note Tolerated: Fair Total Time Spent With Patient: 30 (ADL) Occupational Therapy Treatment Note: Detail (S: Pt sleeping but awoke easily and agreeable to get up. O: Supine to sit Indly. Sit to stand and amb to bathroom with 2 wheeled walker and CG assist. Pt completed oral hygiene with CG assist. Amb to toilet and completed toileting including briefs with CG assist. Pt c/o dizziness but did not have any loss of balance. Amb back to sink with walker and completed washing hands and face with CG assist. Amb to chair and doffed gown with assist to untie, donned clean gown and gown pants with CG to stand. Pt left up in chair with breakfast and chair alarm. A: Pt very fatigued and c/o intermittent dizziness during treatment. CG assist for mobility and grooming/hygiene and toileting activities) Occupational Therapy Problem List: Detail (1. Decreased Ind with self cares 2. Decreased functional mobility needed for safe and Ind self care activities 3. Decreased endurance needed for safe and Ind self care activities) Occupational Therapy Goals: 1. Pt will be Ind with total body dressing 2. Pt will be safe and Ind with functional mobility needed for self care activities 3. Pt will participate in strengthening and endurance activities to maximize safety and Ind with self cares and functional mobility. Prognosis: Moderate Occupational Therapy Plan: Ot 2-4 days per week to address overall endurance, functional mobility, self care activities. Pt would benefit from IP rehab stay to maximize her safety and Ind with ADLs and functional mobility.
[2017-01-07] MEDS: DONEPEZIL HCL 5 MG TABLET PO SCH (09:18)
[2017-01-07] MEDS: VERAPAMIL ER 120 MG TABLET PO SCH (09:18)
[2017-01-07] MEDS: VALSARTAN 80 MG TAB PO SCH (09:19)
[2017-01-07] MEDS: METOPROLOL SUCC 25 MG TAB.ER PO SCH (09:20)
[2017-01-07] MEDS: THIAMINE MONONITRATE 100 MG TABLET PO SCH ×2 (09:20→22:22)
[2017-01-07] MEDS: PATIENT OWN MED: RALOXIFENE 60 MG PO SCH (09:33)
[2017-01-07] MEDS: PATIENT OWN MED: VESICARE 10 MG PO SCH (09:34)
[2017-01-07] MEDS ORDERED: LOPERAMIDE 2 MG CAPSULE PO PRN (11:25)
--- NOTE | 2017-01-07 11:31 | Physician Progress Note ---
Subjective - Date Date of Physician Progress Note: 01/07/17 Objective - Vital Signs Vital Signs: Vital Signs - Last 24 Hrs Temp Pulse Resp BP Pulse Ox 01/07/17 09:31 97.4 F L 88 18 124/57 99 01/07/17 09:00 18 01/06/17 20:00 98.4 F 82 18 118/70 97 01/06/17 18:00 78 18 112/58 01/06/17 16:00 98.0 F 70 16 95/45 97 - General General Appearance: Alert, Oriented x3, Cooperative, Other (Cachetic appearing) Limitations: No limitations - Head Head exam: Other (healing laceration to the right temporal region, ecchymosis present from recent fall; newer laceration just inferior to previous that has been dermabonded) Head exam detail: Contusion, General tenderness, Laceration. negative: Govea' s sign - Eye Eye exam: Normal appearance. negative: Conjunctival injection, Periorbital swelling, Periorbital tenderness, Scleral icterus - ENT Ear exam: negative: Auricular hematoma, Auricular trauma Nasal Exam: negative: Active bleeding, Discharge, Dried blood, Foreign body Mouth exam: negative: Drooling, Laceration, Muffled voice, Tongue elevation - Neck Neck exam: negative: Meningismus, Tenderness - Respiratory Respiratory exam: Normal lung sounds bilaterally. negative: Rales, Respiratory distress, Rhonchi, Stridor - Cardiovascular Cardiovascular Exam: Regular rate, Normal rhythm, Normal heart sounds - GI/Abdominal GI/Abdominal exam: Soft, Normal bowel sounds. negative: Distended, Rebound, Rigid, Tenderness - Rectal Rectal exam: Deferred - exam: Deferred - Extremities Extremities exam: negative: Pedal edema, Tenderness - Back Back exam: Denies: CVA tenderness (R), CVA tenderness (L) - Neurological Neurological exam: Alert, Oriented X3 - Psychiatric Psychiatric exam: Normal affect, Normal mood - Skin Skin exam: Normal color. negative: Abrasion Type of lesion: negative: abrasion Results - Labs Result Diagrams: 01/07/17 05:50 01/07/17 05:50 Labs Last 24 Hours: Laboratory Results - last 24 hr 01/06/17 01/06/17 01/06/17 11:30 17:00 18:18 WBC RBC Hgb Hct MCV MCH MCHC RDW Plt Count MPV Gran % Lymphocytes % Monocytes % Eosinophils % Basophils % Sodium 118 L* Potassium 4.9 Chloride 87 L Carbon Dioxide 27.1 Anion Gap 3.9 L BUN 19 H Creatinine 0.8 Estimated GFR > 60 POC Glucose 97 104 Random Glucose 98 Calcium 7.9 L Phosphorus 1.7 L Magnesium 1.2 L Total Bilirubin AST ALT Alkaline Phosphatase Total Protein Albumin Globulin Albumin/Globulin Ratio 01/07/17 01/07/17 01/07/17 05:50 05:50 05:50 WBC 3.9 L RBC 3.20 L Hgb 10.0 L Hct 29.1 L MCV 90.9 MCH 31.2 MCHC 34.4 RDW 12.7 Plt Count 176 MPV 10.1 Gran % 59.7 Lymphocytes % 25.0 Monocytes % 10.1 H Eosinophils % 4.9 Basophils % 0.3 Sodium 120 L Potassium 4.8 Chloride 88 L Carbon Dioxide 28.9 Anion Gap 3.1 L BUN 18 H Creatinine 0.8 Estimated GFR > 60 POC Glucose Random Glucose 75 Calcium 8.1 L Phosphorus 1.8 L Magnesium 1.3 L Total Bilirubin 0.28 AST 43 H ALT 31 Alkaline Phosphatase 48 Total Protein 4.9 L Albumin 2.6 L Globulin 2.3 Albumin/Globulin Ratio 1.1 DVT/PE Assessment - Risk for VTE Risk for VTE: No Risk Level: High Risk Assessment Date: 01/04/17 Risk Assessment Time: 16:32 VTE Orders Placed or Will Be Placed: No VTE Reason for No Prophylaxis: Contraindicated - Active Medicaitons Current Medications: Current Medications Acetaminophen (Tylenol 325mg) 325 mg PO Q6H PRN PRN Reason: PAIN/TEMP Last Admin: 01/07/17 06:37 Dose: 325 mg Donepezil HCl (Aricept) 5 mg PO DAILY [facility] Last Admin: 01/07/17 09:18 Dose: 5 mg Sodium Chloride () 1,000 mls @ 50 mls/hr IV .Q20H PRN PRN Reason: LARGE VOLUME IV Last Admin: 01/06/17 18:09 Dose: 50 mls/hr Loperamide HCl (Immodium) 2 mg PO Q4H PRN PRN Reason: Diarrhea Magnesium Oxide (Mag Ox) 400 mg PO TID [facility] Stop: 01/08/17 10:01 Melatonin (Melatonin) 5 mg PO QHS PRN PRN Reason: sleep Last Admin: 01/04/17 23:16 Dose: 5 mg Metoprolol Succinate (Toprol Xl) 25 mg PO DAILY [facility] Last Admin: 01/07/17 09:20 Dose: 25 mg Ondansetron HCl (Zofran) 4 mg IVP Q8H PRN PRN Reason: NAUSEA Last Admin: 01/06/17 15:44 Dose: 4 mg Patient Own Med: (Esomeprazole 40 Mg) 1 each PO DAILYAC [facility] Last Admin: 01/07/17 06:02 Dose: 1 each Patient Own Med: (Raloxifene 60 Mg) 1 each PO DAILY [facility] Last Admin: 01/07/17 09:33 Dose: 1 each Patient Own Med: (Vesicare 10 Mg) 1 each PO DAILY [facility] Last Admin: 01/07/17 09:34 Dose: 1 each Patient Own Med: ([place] Thyroid 60 Mg) 1 each PO DAILYTHY [facility] Last Admin: 01/07/17 06:02 Dose: 1 each Patient Own Med: (Perphenazine 4 Mg) 1 each PO QHS [facility] Last Admin: 01/06/17 22:03 Dose: 1 each Valsartan (Diovan) 40 mg PO DAILY [facility] Last Admin: 01/07/17 09:19 Dose: 40 mg Verapamil HCl (Calan Sr) 120 mg PO DAILY [facility] Last Admin: 01/07/17 09:18 Dose: 120 mg AMI Plan - Labs Result Diagrams: 01/07/17 05:50 01/07/17 05:50
[2017-01-07] MEDS: MAGNESIUM OXIDE 400 MG TABLET PO SCH ×3 (12:57→22:22)
--- NOTE | 2017-01-07 13:35 | Physical Therapy Tx Note ---
Physical Therapy Tx Note - Treatment Note Total Time Spent With Patient: 25 Physical Therapy Tx Note: Detail (Pt. in chair upon arrival. Stated she was frustrated with weakness and not being independant. Pt. successfully completed marches X 20, [id number] X 20 and ankle pumps X 20. Pt. [id number] with minimal assist with verbal cues to utilize armrests of chair. Pt. ambulated 50 ' in stevenson with FWW. Pt. required verbal cues to maintain appropriate gait during turns (to not cross her feet). Pt. complained of nausea after her exercise and requested session be terminated. Pt. returned to chair, given nursing call light and bedside table. Nursing advised of lack of battery in chair alarm and the symptoms of nausea.) Physical Therapy Problem List: Detail (1) Decreased Balance 2) Decreased LE strength 3) Supervision to CG with ambulation and transfers 4) Decrease ability to complete sustained physical activity) Physical Therapy Goals: 1) Evaluate Balance using Tinetti Assessment Tool. 2) Increase LE 1/3 muscle grade to improve stability of gait. 3) The patient will ambulate with assistive device a distance of 100 feet with supervision for safety. 4) Independent/supervision for safety with all transfers. 5) The patient will tolerate 30 minutes of physical activity with one rest period. Prognosis: Good Physical Therapy Plan: PT one time a day M-F for balance and LE strengthening exercises, transfer and gait training.
[2017-01-07] MEDS: ONDANSETRON HCL IV 4 MG/2 ML VIAL IVP PRN (14:40)
--- NOTE | 2017-01-07 14:56 | Physician Progress Note ---
Addendum entered and electronically signed by JOSE MANUEL HURD N.P. 01/07/17 15:18: Serum osmolality ordered today for further evaluation of hyponatremia. Determine intrinsic vs. drug induced Original Note: Subjective - Date Date of Physician Progress Note: 01/07/17 - Subjective Subjective Comment: Patient denies any concern, reports pain in arm and head is better- does have dementia. Denies nausea. Family including , DPOA Jeanne,and daughter at the bedside. Reports she appears more awake today, does not appear painful. No new nursing concerns. Objective - Vital Signs Vital Signs: Vital Signs - Last 24 Hrs Temp Pulse Resp BP Pulse Ox 01/07/17 09:31 97.4 F L 88 18 124/57 99 01/07/17 09:00 18 01/06/17 20:00 98.4 F 82 18 118/70 97 01/06/17 18:00 78 18 112/58 01/06/17 16:00 98.0 F 70 16 95/45 97 - General General Appearance: Alert, Cooperative, Other (Cachetic appearing) Limitations: No limitations - Head Head exam: Other (healing laceration to the right temporal region, ecchymosis present from recent fall; newer laceration just inferior to previous that has been dermabonded) Head exam detail: Contusion (right temporal area, stitches removed yesterday to laceration), General tenderness, Laceration. negative: Govea's sign - Eye Eye exam: Normal appearance, PERRL. negative: Conjunctival injection, Periorbital swelling, Periorbital tenderness, Scleral icterus - ENT Ear exam: negative: Auricular hematoma, Auricular trauma Nasal Exam: negative: Active bleeding, Discharge, Dried blood, Foreign body Mouth exam: negative: Drooling, Laceration, Muffled voice, Tongue elevation - Neck Neck exam: negative: Meningismus, Tenderness - Respiratory Respiratory exam: Normal lung sounds bilaterally. negative: Rales, Respiratory distress, Rhonchi, Stridor - Cardiovascular Cardiovascular Exam: Regular rate, Normal rhythm, Normal heart sounds, Other ( trace bilat lower extrem pitting edema, likely from dependent position) Peripheral Pulses: 2+: Dorsalis Pedis (R), Dorsalis Pedis (L) - GI/Abdominal GI/Abdominal exam: Soft, Hyperactive bowel sounds. negative: Distended, Rebound , Rigid, Tenderness - Rectal Rectal exam: Deferred - exam: Deferred - Extremities Extremities exam: Normal capillary refill, Pedal edema. negative: Calf tenderness, Tenderness - Back Back exam: Denies: CVA tenderness (R), CVA tenderness (L) - Neurological Neurological exam: Alert - Psychiatric Psychiatric exam: Normal affect, Normal mood - Skin Skin exam: Normal color. negative: Abrasion Type of lesion: negative: abrasion Assessment and Plan - Assessment and Plan (1) Failure to thrive Current Visit: Yes Status: Acute Qualifiers: Failure to thrive age range: in adult Qualified Code(s): R62.7 - Adult failure to thrive Base Code: [id number] - Comment: 01/07/17- Patient's appetite improved and she did eat small amounts of food throughout the day. glucoes improved and remained stable >70 however she did have some new electrolyte abnormalities (low mg, phohphorus, sodium and chloride) noted with only slight improvement today. Appears to be responding well to current treatment. Concern for possible re-feeding syndrome. No edema on exam. Nutrition and SW evaluation complete. -replace electrolytes according to protocol. -repeat magnesium 400mg po TID x3 doses for mag 1.3 -thiamine 100mg po bid x 6 doses -SL IV as to encourage PO intake and adhere to fluid restriction -oral phosphorus replacement with skim milk (15mmol per 480ml) dosed at 1mmol/ kg over 3 doses. (She recieved 3- 480ml servings of skim milk over 24H). Will determine if need to repeat oral phosphorus via skim milk after 1600 phosphorus level. -recheck mag, phosphorus, sodium at 1600 -CMP/mag/sodium/phosphorus in am -cardiac monitoring -caloric intake at 800 calories per day until electrolytes improve -Immodium PRN available if she experiences any diarrhea, may need to decrease caloric intake should this occur (had hyperactive bowel sounds today) - Seizure precautions in place for hyponatremia (2) Fall Current Visit: Yes Status: Acute Base Code: W19.XXXA - UNSPECIFIED FALL, INITIAL ENCOUNTER Comment: 01/07/17- 2 falls this past week. PT/OT working with patient. XR of right hip and elbow negative for fracture. -patient is now on 1:1 precautions with family with chair/bed alarm in their absence. 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 Will need to scale back caloric intake. Tolerated PO intake without adverse event -continue accuchecks qid -nutrition consulted (4) Generalized weakness Current Visit: Yes Status: Acute Base Code: R53.1 - WEAKNESS Comment: 01/07/17- UA negative, CT abdomen negative, CT negative x3. likely 2/2 to malnutrition. chronic anemia and hyponatremia likely contributing. -continue to monitor hgb and electrolytes for acute change -continue pt/ot daily. will likely need RANDAL vs snf care (5) Dementia Current Visit: Yes Status: Chronic Qualifiers: Dementia type: unspecified type Dementia behavioral disturbance: with behavioral disturbance Qualified Code(s): F03.91 - Unspecified dementia with behavioral disturbance Base Code: F03.90 - UNSPECIFIED DEMENTIA WITHOUT BEHAVIORAL DISTURBANCE Comment: 01/07/17- stable. Slept well last night with daughter at bedside. she has had progressive worsening over the past few months per daughter. 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 Explained to daughter these medications may be contributing her n/v, abdominal pain and decreased appetite. Per daughter, they have seen improvement in hallucinations and behavior with these medications but will need to weight benefits vs risk of continued weight loss. She has had improved appetite today and yesterday. -encouraged opening windows today to increase sunlight exposure -add melatonin 5mg po qhs -discussed with family need to avoid naps during the day -ativan 1mg IV qhs ordered as needed for severe agitation -discussed risk vs benefit of Perphenazine use during this transition period. Daughter reports hallucinations significantly improved with the use of, noted side effect of medication could cause SIADH and contributing to hyponatremia. Fluid restriction has improved sodium from 118 to 120 overnight. Anticipate gradual increase of sodium with refeeding program and continued fluid restriction. The benefit of continuing the use of Perphenazine at this time outweighs the risk of abruptly discontinuing. As patient transitions to LTC advise geriatric psych eval for possible slow titration off of medication in a controlled environment after she has adjusted to new environment. (6) Chronic abdominal pain Current Visit: Yes Status: Resolved Base Code: R10.9 - UNSPECIFIED ABDOMINAL PAIN; G89.29 - OTHER CHRONIC PAIN Comment: 01/07/17- resolved. patient states she is not having any abdominal pain today and none on exam. CT abdomen from 01/01/17 was negative for acute process. -continue to monitor for pain control (7) Headache Current Visit: Yes Status: Resolved Qualifiers: Headache type: unspecified Headache chronicity pattern: acute headache Intractability: not intractable Qualified Code(s): R51 - Headache Base Code: R51 - HEADACHE Comment: 01/07/17- resolved. patient states she not having headache even despite fall she had this morning. HAs had 4 [address] head scans this week and all have been negative for acute bleeds or other processes. -continue to monitor for return of headache (8) Nausea Current Visit: Yes Status: Acute Base Code: R11.0 - NAUSEA Comment: 01/07/17- improved. -continue nexium 40mg po daily -tolerating slow refeeding program (9) Laceration of forehead without complication Current Visit: No Status: Acute Qualifiers: Encounter type: initial encounter Qualified Code(s): S01.81XA - Laceration without foreign body of other part of head, initial encounter Base Code: S01.81XA - LACERATION W/O FOREIGN BODY OF OTH PART OF HEAD, INIT ENCNTR Comment: 01/07/17- routine healing. No evidence of infection or wound dehiscence. -laceration from yesterday remains dermabonded and appears to be healing well. no continued bleeding (10) DVT prophylaxis Current Visit: Yes Status: Acute Base Code: [id number] - Comment: 01/07/17- patient at high risk with age, however, feel she is also very high bleed risk with generalized weakness and fall this week and another fall this morning from bed -will add SCD's while in bed (11) DNR (do not resuscitate) Current Visit: Yes Status: Acute Base Code: Z66 - DO NOT RESUSCITATE Comment: 01/07/17- patient and DPOA request DNR status Results - Labs Result Diagrams: 01/07/17 05:50 01/07/17 05:50 Labs Last 24 Hours: Laboratory Results - last 24 hr 01/06/17 01/06/1717 17:00 18:18 05:50 WBC 3.9 L RBC 3.20 L Hgb 10.0 L Hct 29.1 L MCV 90.9 MCH 31.2 MCHC 34.4 RDW 12.7 Plt Count 176 MPV 10.1 Gran % 59.7 Lymphocytes % 25.0 Monocytes % 10.1 H Eosinophils % 4.9 Basophils % 0.3 Sodium 118 L* Potassium 4.9 Chloride 87 L Carbon Dioxide 27.1 Anion Gap 3.9 L BUN 19 H Creatinine 0.8 Estimated GFR > 60 POC Glucose 104 Random Glucose 98 Calcium 7.9 L Phosphorus 1.7 L Magnesium 1.2 L Total Bilirubin AST ALT Alkaline Phosphatase Total Protein Albumin Globulin Albumin/Globulin Ratio 01/07/17 01/07/17 01/07/17 05:50 05:50 11:47 WBC RBC Hgb Hct MCV MCH MCHC RDW Plt Count MPV Gran % Lymphocytes % Monocytes % Eosinophils % Basophils % Sodium 120 L Potassium 4.8 Chloride 88 L Carbon Dioxide 28.9 Anion Gap 3.1 L BUN 18 H Creatinine 0.8 Estimated GFR > 60 POC Glucose 82 Random Glucose 75 Calcium 8.1 L Phosphorus 1.8 L Magnesium 1.3 L Total Bilirubin 0.28 AST 43 H ALT 31 Alkaline Phosphatase 48 Total Protein 4.9 L Albumin 2.6 L Globulin 2.3 Albumin/Globulin Ratio 1.1 DVT/PE Assessment - Risk for VTE Risk for VTE: No Risk Level: High Risk Assessment Date: 01/04/17 Risk Assessment Time: 16:32 VTE Orders Placed or Will Be Placed: No VTE Reason for No Prophylaxis: Contraindicated - Active Medicaitons Current Medications: Current Medications Acetaminophen (Tylenol 325mg) 325 mg PO Q6H PRN PRN Reason: PAIN/TEMP Last Admin: 01/07/17 06:37 Dose: 325 mg Donepezil HCl (Aricept) 5 mg PO DAILY [facility] Last Admin: 01/07/17 09:18 Dose: 5 mg Loperamide HCl (Immodium) 2 mg PO Q4H PRN PRN Reason: Diarrhea Magnesium Oxide (Mag Ox) 400 mg PO TID [facility] Stop: 01/08/17 10:01 Last Admin: 01/07/17 12:57 Dose: 400 mg Melatonin (Melatonin) 5 mg PO QHS PRN PRN Reason: sleep Last Admin: 01/04/17 23:16 Dose: 5 mg Metoprolol Succinate (Toprol Xl) 25 mg PO DAILY [facility] Last Admin: 01/07/17 09:20 Dose: 25 mg Ondansetron HCl (Zofran) 4 mg IVP Q8H PRN PRN Reason: NAUSEA Last Admin: 01/07/17 14:40 Dose: 4 mg Patient Own Med: (Esomeprazole 40 Mg) 1 each PO DAILYAC [facility] Last Admin: 01/07/17 06:02 Dose: 1 each Patient Own Med: (Raloxifene 60 Mg) 1 each PO DAILY [facility] Last Admin: 01/07/17 09:33 Dose: 1 each Patient Own Med: (Vesicare 10 Mg) 1 each PO DAILY [facility] Last Admin: 01/07/17 09:34 Dose: 1 each Patient Own Med: (Irving Thyroid 60 Mg) 1 each PO DAILYTHY [facility] Last Admin: 01/07/17 06:02 Dose: 1 each Patient Own Med: (Perphenazine 4 Mg) 1 each PO QHS [facility] Last Admin: 01/06/17 22:03 Dose: 1 each Valsartan (Diovan) 40 mg PO DAILY [facility] Last Admin: 01/07/17 09:19 Dose: 40 mg Verapamil HCl (Calan Sr) 120 mg PO DAILY [facility] Last Admin: 01/07/17 09:18 Dose: 120 mg AMI Plan - Labs Result Diagrams: 01/07/17 05:50 01/07/17 05:50
[2017-01-07] MEDS ORDERED: ONDANSETRON 4 MG ODT TABLET SL PRN (15:54)
[2017-01-07] MEDS ORDERED: 0.9 % SODIUM CHLORIDE 1000ML 1,000 ML IV PRN (17:53)
[2017-01-07] MEDS: PERPHENAZINE 4 MG PO SCH (22:22)
[2017-01-08 06:58] LABS: ALB/GLOB RATIO 1.2 (1.1-1.8); ALBUMIN 2.7 gm/dL (3.5-5.0); ALKALINE PHOSPHATASE 49 U/L (38-126); ALT/SGPT 31 U/L (9-52); ANION GAP 1.7 (7-16); AST/SGOT 36 U/L (14-36); BILIRUBIN,TOTAL 0.25 mg/dL (0.2-1.3); BLOOD UREA NITROGEN 21 mg/dL (7-17); CARBON DIOXIDE 28.3 mmol/L (22-30); CREATININE 0.8 mg/dL (0.52-1.04); EST GLOMERULAR FILTRATION RATE > 60 ml/min; GLUCOSE,RANDOM 77 mg/dL (70-110); TOTAL PROTEIN 4.9 gm/dL (6.3-8.2)
--- NOTE | 2017-01-08 07:45 | RADIOLOGY REPORT ---
EXAM: PORTABLE CHEST HISTORY: DIFFICULTY IN BREATHING. TECHNIQUE: A portable AP view of the chest was performed. FINDINGS: The heart size is normal. The lungs are hyperinflated. Severe underlying emphysema. No infiltrate or pleural effusion. There is osteopenia. IMPRESSION: SEVERE HYPERINFLATION OF THE LUNGS. NO ACUTE TYPE INFILTRATE OR PLEURAL EFFUSION. JOB NUMBER: [id number] MTDD
[2017-01-08] MEDS: PATIENT OWN MED: ESOMEPRAZOLE 40 MG PO SCH (08:07)
[2017-01-08] MEDS: ARMOUR THYROID 60 MG PO SCH (08:07)
[2017-01-08] MEDS: DONEPEZIL HCL 5 MG TABLET PO SCH (09:37)
[2017-01-08] MEDS: MAGNESIUM OXIDE 400 MG TABLET PO SCH ×3 (09:38→21:00)
[2017-01-08] MEDS: PATIENT OWN MED: VESICARE 10 MG PO SCH (09:39)
[2017-01-08] MEDS: PATIENT OWN MED: RALOXIFENE 60 MG PO SCH (09:39)
[2017-01-08] MEDS: THIAMINE MONONITRATE 100 MG TABLET PO SCH ×2 (09:40→21:01)
[2017-01-08] MEDS: VALSARTAN 80 MG TAB PO SCH (09:48)
[2017-01-08] MEDS: VERAPAMIL ER 120 MG TABLET PO SCH (09:49)
[2017-01-08] MEDS: METOPROLOL SUCC 25 MG TAB.ER PO SCH (09:49)
[2017-01-08] MEDS: ACETAMINOPHEN 325 MG TAB PO PRN (11:46)
--- NOTE | 2017-01-08 11:50 | Physical Therapy Tx Note ---
Physical Therapy Tx Note - Treatment Note Tolerated: Good Total Time Spent With Patient: 20 Physical Therapy Tx Note: Detail (The patient was up in chair with when PT arrived. The patient had no complaints of dizziness or nausea. The patient' s standing balance was tested using the Tinetti balance tool, the patient rated 14/28 which is in the high risk for falling category. Balance exercises in standing including standing with varying bases of support with perturbations, finding balance point by weight shifting. The patient ambulated with two wheeled walker a distance of 61 feet x 2 with CG of 1. Patient ambulated on carpeted surface in the [facility]. The patient was highly distractable with ambualtion. The patient returned to chair with daughter and present. Chair alarm was reset. Overall improvement with ambulation and less fatigue was noted today.) Physical Therapy Problem List: Detail (1) Decreased Balance 2) Decreased LE strength 3) Supervision to CG with ambulation and transfers 4) Decrease ability to complete sustained physical activity) Physical Therapy Goals: 1) Evaluate Balance using Tinetti Assessment Tool. 2) Increase LE 1/3 muscle grade to improve stability of gait. 3) The patient will ambulate with assistive device a distance of 100 feet with supervision for safety. 4) Independent/supervision for safety with all transfers. 5) The patient will tolerate 30 minutes of physical activity with one rest period. Physical Therapy Plan: PT one time a day M-F for balance and LE strengthening exercises, transfer and gait training.
--- NOTE | 2017-01-08 12:41 | Physician Progress Note ---
Subjective - Date Date of Physician Progress Note: 01/08/17 - Subjective Subjective Comment: Nursing reports no new concerns in the last 24 hours. Patient denies complaint. Did report some nausea yesterday evening with drinking V-8 at dinner but was resolved after taking medication for nausea. Denies diarrhea Objective - Vital Signs Vital Signs: Vital Signs - Last 24 Hrs Temp Pulse Resp BP BP Pulse Ox 01/08/17 10:00 97.6 F 91 H 12 130/63 97 01/07/17 19:30 98.1 F 78 18 119/50 99 01/07/17 16:45 97.7 F 78 18 98/49 96 - General General Appearance: Alert, Oriented x3 (2-3), Cooperative, Other (Cachetic appearing) Limitations: No limitations - Head Head exam: Other (healing laceration to the right temporal region, ecchymosis present from recent fall; newer laceration just inferior to previous that has been dermabonded) Head exam detail: Contusion (right temporal area, stitches removed yesterday to laceration), General tenderness, Laceration. negative: Govea's sign - Eye Eye exam: Normal appearance, PERRL. negative: Conjunctival injection, Periorbital swelling, Periorbital tenderness, Scleral icterus - ENT Ear exam: negative: Auricular hematoma, Auricular trauma Nasal Exam: negative: Active bleeding, Discharge, Dried blood, Foreign body Mouth exam: negative: Drooling, Laceration, Muffled voice, Tongue elevation - Neck Neck exam: Normal inspection. negative: Meningismus, Tenderness - Respiratory Respiratory exam: Normal lung sounds bilaterally. negative: Rales, Respiratory distress, Rhonchi, Stridor - Cardiovascular Cardiovascular Exam: Regular rate, Normal rhythm, Normal heart sounds, Other ( trace bilat lower extrem pitting edema, likely from dependent position) Peripheral Pulses: 2+: Dorsalis Pedis (R), Dorsalis Pedis (L) - GI/Abdominal GI/Abdominal exam: Soft, Hyperactive bowel sounds. negative: Distended, Rebound , Rigid, Tenderness - Rectal Rectal exam: Deferred - exam: Deferred - Extremities Extremities exam: Normal capillary refill, Pedal edema. negative: Calf tenderness, Tenderness - Back Back exam: Denies: CVA tenderness (R), CVA tenderness (L) - Neurological Neurological exam: Alert - Psychiatric Psychiatric exam: Normal affect, Normal mood - Skin Skin exam: Normal color. negative: Abrasion Type of lesion: negative: abrasion Assessment and Plan - Assessment and Plan (1) Failure to thrive Current Visit: Yes Status: Acute Qualifiers: Failure to thrive age range: in adult Qualified Code(s): R62.7 - Adult failure to thrive Base Code: [id number] - Comment: 01/08/17- Patient's appetite improved and she did eat small amounts of food throughout the day. glucoes improved and remained stable >70 however she did have some new electrolyte abnormalities (low mg, phohphorus, sodium and chloride) noted with only slight improvement today. Appears to be responding well to current treatment. Concern for possible re-feeding syndrome. Trace on exam. Nutrition and SW evaluation complete. -replace electrolytes according to protocol. -will schedule MagOx 400mg BID as only slight increase in magnesium (1.4) after 2 replacement treatments -thiamine 100mg po bid x 6 doses -SL IV as to encourage PO intake and adhere to fluid restriction -oral phosphorus replacement with skim milk (15mmol per 480ml) dosed at 1mmol/ kg over 3 doses. (She recieved 3- 480ml servings of skim milk over 24H). -phosporus improved at 2.2 -sodium down to 118 1600 01/07, increased to 120 0600 /. recheck 1800 today -will have family get sodium based broth and give 2-4oz glasses of broth to replace sodium. -concern for only slight improvement in sodium -will further fluid restrict at 1200ml/day, will decrease skin milk intake to 2- 8oz glasses skin milk to allow intake of broth -CMP/mag/sodium/phosphorus in am -cardiac monitoring remains NSR -caloric intake at 800 calories per day until electrolytes improve -Immodium PRN available if she experiences any diarrhea, may need to decrease caloric intake should this occur (had hyperactive bowel sounds today, no diarrhea at this time) - Seizure precautions in place for hyponatremia -conversation with family today regarding future wishes should appetite/oral food intake not improve. Family and patient to discuss goals of care ie: hospice vs. artificial feeding via PED/J/Dobhoff tube. - urine sodium 24, serum osmo 260, awaiting urine osmo. concern for SIADH (2) Fall Current Visit: Yes Status: Acute Base Code: W19.XXXA - UNSPECIFIED FALL, INITIAL ENCOUNTER Comment: 01/08/17- 2 falls this past week. PT/OT working with patient. XR of right hip and elbow negative for fracture. -patient is now on 1:1 precautions with family with chair/bed alarm in their absence. 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 Will need to scale back caloric intake. Tolerated PO intake without adverse event -continue accuchecks qid -nutrition consulted (4) Generalized weakness Current Visit: Yes Status: Acute Base Code: R53.1 - WEAKNESS Comment: 01/08/17- UA negative, CT abdomen negative. Weakness likely 2/2 to malnutrition. chronic anemia and hyponatremia likely contributing. -continue to monitor hgb and electrolytes for acute change -continue pt/ot daily. will likely need RANDAL vs detention care (5) Dementia Current Visit: Yes Status: Chronic Qualifiers: Dementia type: unspecified type Dementia behavioral disturbance: with behavioral disturbance Qualified Code(s): F03.91 - Unspecified dementia with behavioral disturbance Base Code: F03.90 - UNSPECIFIED DEMENTIA WITHOUT BEHAVIORAL DISTURBANCE Comment: 01/08/17- stable. Slept well last night with daughter at bedside. she has had progressive worsening over the past few months per daughter. 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 Explained to daughter these medications may be contributing her n/v, abdominal pain and decreased appetite. Per daughter, they have seen improvement in hallucinations and behavior with these medications but will need to weight benefits vs risk of continued weight loss. She has had improved appetite today and yesterday. -encouraged opening windows today to increase sunlight exposure -add melatonin 5mg po qhs -discussed with family need to avoid naps during the day -ativan 1mg IV qhs ordered as needed for severe agitation -discussed risk vs benefit of Perphenazine use during this transition period. Daughter reports hallucinations significantly improved with the use of, noted side effect of medication could cause SIADH and contributing to hyponatremia. Fluid restriction has improved sodium from 118 to 120 overnight. Anticipate gradual increase of sodium with refeeding program and continued fluid restriction. The benefit of continuing the use of Perphenazine at this time outweighs the risk of abruptly discontinuing. As patient transitions to LTC advise geriatric psych eval for possible slow titration off of medication in a controlled environment after she has adjusted to new environment. (6) Nausea Current Visit: Yes Status: Acute Base Code: R11.0 - NAUSEA Comment: 01/08/17- improved. -continue nexium 40mg po daily -tolerating slow refeeding program with little improvement in electrolyte response (7) Laceration of forehead without complication Current Visit: No Status: Acute Qualifiers: Encounter type: initial encounter Qualified Code(s): S01.81XA - Laceration without foreign body of other part of head, initial encounter Base Code: S01.81XA - LACERATION W/O FOREIGN BODY OF OTH PART OF HEAD, INIT ENCNTR Comment: 01/08/17- routine healing. No evidence of infection or wound dehiscence. -laceration from yesterday remains dermabonded and appears to be healing well. no continued bleeding (8) DVT prophylaxis Current Visit: Yes Status: Acute Base Code: [id number] - Comment: 01/08/17- patient at high risk with age, however, feel she is also very high bleed risk with generalized weakness and fall this week and another fall this morning from bed -will add SCD's while in bed (9) DNR (do not resuscitate) Current Visit: Yes Status: Acute Base Code: Z66 - DO NOT RESUSCITATE Comment: 01/08/17- patient and DPOA request DNR status Results - Labs Result Diagrams: 01/07/17 05:50 01/08/17 05:55 Labs Last 24 Hours: Laboratory Results - last 24 hr 01/07/17 01/07/17 01/07/17 16:14 16:14 16:45 Sodium 118 L* Potassium Chloride Carbon Dioxide Anion Gap BUN Creatinine Estimated GFR POC Glucose 106 Random Glucose Serum Osmolality 260 L Calcium Phosphorus 2.4 L Magnesium Total Bilirubin AST ALT Alkaline Phosphatase Total Protein Albumin Globulin Albumin/Globulin Ratio Urine Sodium 01/07/17 01/08/17 18:15 05:55 Sodium 120 L Potassium 4.8 Chloride 90 L Carbon Dioxide 28.3 Anion Gap 1.7 L BUN 21 H Creatinine 0.8 Estimated GFR > 60 POC Glucose Random Glucose 77 Serum Osmolality Calcium 8.2 L Phosphorus 2.2 L Magnesium 1.4 L Total Bilirubin 0.25 AST 36 ALT 31 Alkaline Phosphatase 49 Total Protein 4.9 L Albumin 2.7 L Globulin 2.2 Albumin/Globulin Ratio 1.2 Urine Sodium 24.00 L DVT/PE Assessment - Risk for VTE Risk for VTE: No Risk Level: High Risk Assessment Date: 01/04/17 Risk Assessment Time: 16:32 VTE Orders Placed or Will Be Placed: No VTE Reason for No Prophylaxis: Contraindicated - Active Medicaitons Current Medications: Current Medications Acetaminophen (Tylenol 325mg) 325 mg PO Q6H PRN PRN Reason: PAIN/TEMP Last Admin: 01/08/17 11:46 Dose: 325 mg Donepezil HCl (Aricept) 5 mg PO DAILY [facility] Last Admin: 01/08/17 09:37 Dose: 5 mg Loperamide HCl (Immodium) 2 mg PO Q4H PRN PRN Reason: Diarrhea Magnesium Oxide (Mag Ox) 400 mg PO BID [facility] Last Admin: 01/08/17 09:38 Dose: 400 mg Melatonin (Melatonin) 5 mg PO QHS PRN PRN Reason: sleep Last Admin: 01/04/17 23:16 Dose: 5 mg Metoprolol Succinate (Toprol Xl) 25 mg PO DAILY [facility] Last Admin: 01/08/17 09:49 Dose: 25 mg Ondansetron HCl (Zofran) 4 mg IVP Q8H PRN PRN Reason: NAUSEA Last Admin: 01/07/17 14:40 Dose: 4 mg Ondansetron HCl (Zofran Odt) 4 mg SL Q8H PRN PRN Reason: NAUSEA/VOMITING Patient Own Med: (Esomeprazole 40 Mg) 1 each PO DAILYAC [facility] Last Admin: 01/08/17 08:07 Dose: 1 each Patient Own Med: (Raloxifene 60 Mg) 1 each PO DAILY [facility] Last Admin: 01/08/17 09:39 Dose: 1 each Patient Own Med: (Vesicare 10 Mg) 1 each PO DAILY [facility] Last Admin: 01/08/17 09:39 Dose: 1 each Patient Own Med: ([place] Thyroid 60 Mg) 1 each PO DAILYTHY [facility] Last Admin: 01/08/17 08:07 Dose: 1 each Patient Own Med: (Perphenazine 4 Mg) 1 each PO QHS [facility] Last Admin: 01/07/17 22:22 Dose: 1 each Valsartan (Diovan) 40 mg PO DAILY [facility] Last Admin: 01/08/17 09:48 Dose: 40 mg Verapamil HCl (Calan Sr) 120 mg PO DAILY [facility] Last Admin: 01/08/17 09:49 Dose: 120 mg AMI Plan - Labs Result Diagrams: 01/07/17 05:50 01/08/17 05:55
[2017-01-08] MEDS ORDERED: ACETAMINOPHEN 500 MG TABLET PO ONE (19:03)
[2017-01-08] MEDS: PERPHENAZINE 4 MG PO SCH (21:01)
[2017-01-09] MEDS: ARMOUR THYROID 60 MG PO SCH (06:13)
[2017-01-09] MEDS: PATIENT OWN MED: ESOMEPRAZOLE 40 MG PO SCH (06:13)
[2017-01-09] MEDS: ACETAMINOPHEN 500 MG TABLET PO PRN ×2 (06:16→20:14)
--- NOTE | 2017-01-09 10:52 | Physician Progress Note ---
Subjective - Date Date of Physician Progress Note: 01/09/17 - Subjective Subjective Comment: Patient denies any compliant today. Denies nausea, diarrhea, pain. No new nursing concerns. Has been eating approx 80% of her meals, tolerating PO intake without nausea x 2 days, has been more alert and conversive. Objective - Vital Signs Vital Signs: Vital Signs - Last 24 Hrs Temp Pulse Resp BP BP Pulse Ox 01/09/17 09:58 97.4 F L 133/65 01/09/17 09:06 97.4 F L 79 17 133/65 99 01/09/17 05:59 98.0 F 72 24 130/57 94 L 01/08/17 21:34 98.0 F 72 24 131/70 94 L 01/08/17 18:00 98.7 F 74 12 109/50 96 01/08/17 14:55 98.3 F 81 12 105/57 95 - General General Appearance: Alert, Oriented x3 (2-3), Cooperative, Other (Cachetic appearing) Limitations: No limitations - Head Head exam: Other (healing laceration to the right temporal region, ecchymosis present from recent fall; ) Head exam detail: Contusion (right temporal area, nearly resolved), General tenderness, Laceration (healed). negative: Govea's sign - Eye Eye exam: Normal appearance, PERRL. negative: Conjunctival injection, Periorbital swelling, Periorbital tenderness, Scleral icterus - ENT ENT exam: Mucous membranes moist Ear exam: negative: Auricular hematoma, Auricular trauma Nasal Exam: negative: Active bleeding, Discharge, Dried blood, Foreign body Mouth exam: negative: Drooling, Laceration, Muffled voice, Tongue elevation - Neck Neck exam: Normal inspection. negative: Meningismus, Tenderness - Respiratory Respiratory exam: Normal lung sounds bilaterally. negative: Rales, Respiratory distress, Rhonchi, Stridor - Cardiovascular Cardiovascular Exam: Regular rate, Normal rhythm, Normal heart sounds, Other ( trace bilat lower extrem pitting edema) Peripheral Pulses: 2+: Dorsalis Pedis (R), Dorsalis Pedis (L) - GI/Abdominal GI/Abdominal exam: Soft, Hyperactive bowel sounds. negative: Distended, Rebound , Rigid, Tenderness - Rectal Rectal exam: Deferred - exam: Deferred - Extremities Extremities exam: Normal capillary refill, Pedal edema. negative: Calf tenderness, Tenderness - Back Back exam: Denies: CVA tenderness (R), CVA tenderness (L) - Neurological Neurological exam: Alert - Psychiatric Psychiatric exam: Normal affect, Normal mood - Skin Skin exam: Normal color (blanchable erythema to coccyx). negative: Abrasion Type of lesion: negative: abrasion Assessment and Plan - Assessment and Plan (1) Failure to thrive Current Visit: Yes Status: Acute Qualifiers: Failure to thrive age range: in adult Qualified Code(s): R62.7 - Adult failure to thrive Base Code: [id number] - Comment: 01/09/17- Patient's appetite continues to improve eating approx 80% of meals and tolerating without nausea or diarrhea. Glucoes improved and remaining stable >70. Magnesium, phosphorus, sodium with upward trend. Appears to be responding well to implementation of broth BID to encourage sodium replacement. Concerns remain for re-feeding syndrome but is tolerating refeeding regimen. Nutrition and SW evaluation complete. Preventative skin program in place since admission. Malnutrintion with low protein putting at risk for unavoidable skin breakdown. Nursing continuing to off load heels, turn q 2 hours, encourage ambulation to BR as tolerates, pressure relieving surface to chair and bed. -continue to replace electrolytes -contiue MagOx 400mg BID - increase in magnesium (1.6) -SL IV as to encourage PO intake and adhere to fluid restriction -phosporus improved at 2.6 -sodium down to 118 1600 01/07, increased to 120 0600 01/08, 0600 01/09 122 -continue sodium based broth and give 2-4oz glasses of broth to replace sodium. -continue fluid restrict at 1200ml/day, will decrease skin milk intake to 2-8oz glasses skin milk to allow intake of broth -CMP/mag/sodium/phosphorus in am -cardiac monitoring remains NSR with intermittent PVC -caloric intake increase to 1000 calories per day -Immodium PRN available if she experiences any diarrhea, may need to decrease caloric intake should this occur (had hyperactive bowel sounds today, no diarrhea at this time) - Seizure precautions in place for hyponatremia- no seizure activity - urine sodium 24, serum osmo 260, urine osmo. 415- concern for SIADH -family today regarding future wishes should appetite/oral food intake not improve. Family and patient to discuss goals of care ie: hospice vs. artificial feeding via PED/J/Dobhoff tube. Will contiue to monitor sodium and other electrolytes through the weekend and reconvene with family on Friday -will have Hospice consult with family (2) Fall Current Visit: Yes Status: Acute Base Code: W19.XXXA - UNSPECIFIED FALL, INITIAL ENCOUNTER Comment: 01/09/17- 2 falls this past week. PT/OT working with patient. XR of right hip and elbow negative for fracture. -patient is now on 1:1 precautions with family with chair/bed alarm in their absence. 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 Will need to scale back caloric intake. Tolerated PO intake without adverse event -continue accuchecks qid -nutrition consulted (4) Generalized weakness Current Visit: Yes Status: Acute Base Code: R53.1 - WEAKNESS Comment: 01/09/17- UA negative, CT abdomen negative. Weakness likely 2/2 to malnutrition. chronic anemia and hyponatremia likely contributing. -continue to monitor hgb and electrolytes for acute change -continue pt/ot daily. 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 she has had progressive worsening over the past year with significant decline over the last 6 weeks per daughter and . No longer is participating in usual activities she enjoys such as going out to eat with her daughters, visiting friends, crafting. 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 Explained to daughter these medications may be contributing her n/v, abdominal pain and decreased appetite. Per daughter, they have seen improvement in hallucinations and behavior with these medications but will need to weigh benefits vs risk of continued weight loss. She has had improvement in appetite -encouraged opening drapes to increase sunlight exposure -add melatonin 5mg po qhs -discussed with family need to avoid naps during the day -ativan 1mg IV qhs ordered as needed for severe agitation -discussed risk vs benefit of Perphenazine use during this transition period. Daughter reports hallucinations significantly improved with the use of, noted side effect of medication could cause SIADH and contributing to hyponatremia. Fluid restriction has improved sodium from 118 to 120 overnight. Anticipate gradual increase of sodium with refeeding program and continued fluid restriction. The benefit of continuing the use of Perphenazine at this time outweighs the risk of abruptly discontinuing. If patient transitions to LTC advise geriatric psych eval for possible slow titration off of medication in a controlled environment after she has adjusted to new environment. Family meeting held 01/09 regarding goals of care. Family reporting decreased eating, weight loss, pregressive impariment of short term memory, increase sleeping over the last year with significant worsening over the last 6 weeks. After falling 1 week ago prior to admit had progressive nausea, headache and further increase of sleeping. Family reports decrease in her quality of life, no longer enjoying or participating in usual leisure activies. Family reports she would not like or tolerate a feeding tube should nutritional intake or electrolyte replacement not improve and would require artificial nutrition for life sustaining measure. Family would like the weekend to see if sodium continues to improve to the point she will be out of the seizure risk level, have a period of time she would be lucid and decide if, as a family, would like her send home with hospice and keep comfortable or transfer to larger hospital for more aggresive measures leading to a potential lengthy hospital course. (6) Nausea Current Visit: Yes Status: Acute Base Code: R11.0 - NAUSEA Comment: 01/09/17- resolved but will contiue to assess for frequently -continue nexium 40mg po daily -tolerating slow refeeding program with mild improvement in electrolyte response (7) Laceration of forehead without complication Current Visit: No Status: Acute Qualifiers: Encounter type: initial encounter Qualified Code(s): S01.81XA - Laceration without foreign body of other part of head, initial encounter Base Code: S01.81XA - LACERATION W/O FOREIGN BODY OF OTH PART OF HEAD, INIT ENCNTR Comment: 01/09/17- routine healing. No evidence of infection or wound dehiscence. -laceration from yesterday remains dermabonded and appears to be healing well. no continued bleeding (8) DVT prophylaxis Current Visit: Yes Status: Acute Base Code: [id number] - Comment: 01/09/17- patient at high risk with age, however, feel she is also very high bleed risk with generalized weakness and fall this week and another fall this morning from bed -will add SCD's while in bed (9) DNR (do not resuscitate) Current Visit: Yes Status: Acute Base Code: Z66 - DO NOT RESUSCITATE Comment: 01/09/17- patient and DPOA request DNR status Results - Labs Result Diagrams: 01/07/17 05:50 01/09/17 06:00 Labs Last 24 Hours: Laboratory Results - last 24 hr 01/07/17 01/08/17 01/08/17 18:15 12:11 17:21 Sodium POC Glucose 77 96 Phosphorus Magnesium Urine Osmolality 415 01/08/17 01/09/17 01/09/17 20:56 06:00 07:44 Sodium 122 L POC Glucose 99 82 Phosphorus 2.6 Magnesium 1.6 Urine Osmolality DVT/PE Assessment - Risk for VTE Risk for VTE: No Risk Level: High Risk Assessment Date: 01/04/17 Risk Assessment Time: 16:32 VTE Orders Placed or Will Be Placed: No VTE Reason for No Prophylaxis: Contraindicated - Active Medicaitons Current Medications: Current Medications Acetaminophen (Tylenol 500mg Tab) 1,000 mg PO Q6H PRN PRN Reason: Pain - General Last Admin: 01/09/17 06:16 Dose: 1,000 mg Donepezil HCl (Aricept) 5 mg PO DAILY [facility] Last Admin: 01/08/17 09:37 Dose: 5 mg Loperamide HCl (Immodium) 2 mg PO Q4H PRN PRN Reason: Diarrhea Magnesium Oxide (Mag Ox) 400 mg PO BID [facility] Last Admin: 01/08/17 21:00 Dose: 400 mg Melatonin (Melatonin) 5 mg PO QHS PRN PRN Reason: sleep Last Admin: 01/04/17 23:16 Dose: 5 mg Metoprolol Succinate (Toprol Xl) 25 mg PO DAILY [facility] Last Admin: 01/08/17 09:49 Dose: 25 mg Ondansetron HCl (Zofran) 4 mg IVP Q8H PRN PRN Reason: NAUSEA Last Admin: 01/07/17 14:40 Dose: 4 mg Ondansetron HCl (Zofran Odt) 4 mg SL Q8H PRN PRN Reason: NAUSEA/VOMITING Patient Own Med: (Esomeprazole 40 Mg) 1 each PO DAILYAC [facility] Last Admin: 01/09/17 06:13 Dose: 1 each Patient Own Med: (Raloxifene 60 Mg) 1 each PO DAILY [facility] Last Admin: 01/08/17 09:39 Dose: 1 each Patient Own Med: (Vesicare 10 Mg) 1 each PO DAILY [facility] Last Admin: 01/08/17 09:39 Dose: 1 each Patient Own Med: ([place] Thyroid 60 Mg) 1 each PO DAILYTHY [facility] Last Admin: 01/09/17 06:13 Dose: 1 each Patient Own Med: (Perphenazine 4 Mg) 1 each PO QHS [facility] Last Admin: 01/08/17 21:01 Dose: 1 each Valsartan (Diovan) 40 mg PO DAILY [facility] Last Admin: 01/08/17 09:48 Dose: 40 mg Verapamil HCl (Calan Sr) 120 mg PO DAILY [facility] Last Admin: 01/08/17 09:49 Dose: 120 mg AMI Plan - Labs Result Diagrams: 01/07/17 05:50 01/09/17 06:00
[2017-01-09] MEDS: VERAPAMIL ER 120 MG TABLET PO SCH (11:43)
[2017-01-09] MEDS: DONEPEZIL HCL 5 MG TABLET PO SCH (11:44)
[2017-01-09] MEDS: MAGNESIUM OXIDE 400 MG TABLET PO SCH ×2 (11:44→21:58)
[2017-01-09] MEDS: METOPROLOL SUCC 25 MG TAB.ER PO SCH (11:44)
[2017-01-09] MEDS: VALSARTAN 80 MG TAB PO SCH (11:44)
[2017-01-09] MEDS: PATIENT OWN MED: RALOXIFENE 60 MG PO SCH (11:45)
[2017-01-09] MEDS: PATIENT OWN MED: VESICARE 10 MG PO SCH (11:45)
[2017-01-09] MEDS: PERPHENAZINE 4 MG PO SCH (21:58)
[2017-01-10] MEDS: ACETAMINOPHEN 500 MG TABLET PO PRN ×3 (03:24→23:03)
[2017-01-10] MEDS: PATIENT OWN MED: ESOMEPRAZOLE 40 MG PO SCH (06:48)
[2017-01-10] MEDS: ARMOUR THYROID 60 MG PO SCH (06:48)
[2017-01-10 07:01] LABS: ALB/GLOB RATIO 1.1 (1.1-1.8); ALBUMIN 2.6 gm/dL (3.5-5.0); ALKALINE PHOSPHATASE 54 U/L (38-126); ALT/SGPT 33 U/L (9-52); ANION GAP 4.8 (7-16); AST/SGOT 34 U/L (14-36); BILIRUBIN,TOTAL 0.19 mg/dL (0.2-1.3); BLOOD UREA NITROGEN 18 mg/dL (7-17); CARBON DIOXIDE 28.2 mmol/L (22-30); CREATININE 0.8 mg/dL (0.52-1.04); EST GLOMERULAR FILTRATION RATE > 60 ml/min; GLUCOSE,RANDOM 72 mg/dL (70-110); TOTAL PROTEIN 4.9 gm/dL (6.3-8.2)
[2017-01-10] MEDS: DONEPEZIL HCL 5 MG TABLET PO SCH (10:19)
[2017-01-10] MEDS: PATIENT OWN MED: RALOXIFENE 60 MG PO SCH (10:19)
[2017-01-10] MEDS: MAGNESIUM OXIDE 400 MG TABLET PO SCH ×2 (10:19→22:05)
[2017-01-10] MEDS: PATIENT OWN MED: VESICARE 10 MG PO SCH (10:19)
[2017-01-10] MEDS: VERAPAMIL ER 120 MG TABLET PO SCH (10:19)
[2017-01-10] MEDS: VALSARTAN 80 MG TAB PO SCH (10:19)
[2017-01-10] MEDS: METOPROLOL SUCC 25 MG TAB.ER PO SCH (10:19)
--- NOTE | 2017-01-10 13:10 | Physician Progress Note ---
Subjective - Date Date of Physician Progress Note: 01/10/17 - Subjective Subjective Comment: patient denies complaint. Has been tolerating 1,000 calorie diet without nausea , vomiting or diarrhea. No new nursing concerns. [facility]. Objective - Vital Signs Vital Signs: Vital Signs - Last 24 Hrs Temp Pulse Resp BP BP Pulse Ox 01/10/17 08:50 97.8 F 95 H 16 137/90 95 01/10/17 08:35 16 01/10/17 01:00 97.7 F 82 18 142/68 91 L 01/09/17 21:27 98.0 F 79 16 140/69 93 L 01/09/17 21:00 79 01/09/17 15:11 98.4 F 80 14 122/62 95 - General General Appearance: Alert, Oriented x3 (2-3), Cooperative, Other (Cachetic appearing) Limitations: No limitations - Head Head exam: Other (healing laceration to the right temporal region, ecchymosis present from recent fall; ) Head exam detail: Contusion (right temporal area, nearly resolved), General tenderness, Laceration (healed). negative: Govea's sign - Eye Eye exam: Normal appearance, PERRL. negative: Conjunctival injection, Periorbital swelling, Periorbital tenderness, Scleral icterus - ENT ENT exam: Mucous membranes moist Ear exam: negative: Auricular hematoma, Auricular trauma Nasal Exam: negative: Active bleeding, Discharge, Dried blood, Foreign body Mouth exam: negative: Drooling, Laceration, Muffled voice, Tongue elevation - Neck Neck exam: Normal inspection. negative: Meningismus, Tenderness - Respiratory Respiratory exam: Normal lung sounds bilaterally. negative: Rales, Respiratory distress, Rhonchi, Stridor - Cardiovascular Cardiovascular Exam: Regular rate, Normal rhythm, Normal heart sounds, Other ( trace bilat lower extrem pitting edema) Peripheral Pulses: 2+: Dorsalis Pedis (R), Dorsalis Pedis (L) - GI/Abdominal GI/Abdominal exam: Soft, Hyperactive bowel sounds. negative: Distended, Rebound , Rigid, Tenderness - Rectal Rectal exam: Deferred - exam: Deferred - Extremities Extremities exam: Normal capillary refill, Pedal edema. negative: Calf tenderness, Tenderness - Back Back exam: Denies: CVA tenderness (R), CVA tenderness (L) - Neurological Neurological exam: Alert - Psychiatric Psychiatric exam: Normal affect, Normal mood - Skin Skin exam: Normal color (blanchable erythema to coccyx). negative: Abrasion Type of lesion: negative: abrasion Assessment and Plan - Assessment and Plan (1) Failure to thrive Current Visit: Yes Status: Acute Qualifiers: Failure to thrive age range: in adult Qualified Code(s): R62.7 - Adult failure to thrive Base Code: [id number] - Comment: 01/10/17- Patient's appetite continues to improve eating approx 80% of meals and tolerating without nausea or diarrhea. Glucose improved and remaining stable >70. Magnesium, phosphorus, sodium with upward trend. Appears to be responding well to implementation of broth BID to encourage sodium replacement. Concerns remain for re-feeding syndrome but is tolerating refeeding regimen. Nutrition and SW evaluation complete. Preventative skin program in place since admission. Malnutrition with low protein putting at risk for unavoidable skin breakdown. Nursing continuing to off load heels, turn q 2 hours, encourage ambulation to BR as tolerates, pressure relieving surface to chair and bed. -continue to replace electrolytes -contiue MagOx 400mg BID -SL IV as to encourage PO intake and adhere to fluid restriction -phosporus improved at 2.6 -sodium down to 118 1600 01/07, increased to 120 0600 01/08, 0600 01/09 122, 0600 126 -continue sodium based broth and give 2-4oz glasses of broth to replace sodium. -continue fluid restrict at 1200ml/day, will decrease skin milk intake to 2-8oz glasses skin milk to allow intake of broth -CMP/mag/sodium/phosphorus in am -cardiac monitoring remains NSR with intermittent PVC -caloric intake increase to be 1200 calories per day starting tomorrow -Immodium PRN available if she experiences any diarrhea, may need to decrease caloric intake should this occur (had hyperactive bowel sounds today, no diarrhea at this time) - Seizure precautions in place for hyponatremia- no seizure activity - urine sodium 24, serum osmo 260, urine osmo. 415- concern for SIADH -family meeting regarding future wishes should appetite/oral food intake not improve. Family and patient to discuss goals of care ie: hospice vs. artificial feeding via PED/J/Dobhoff tube. Will contiue to monitor sodium and other electrolytes through the weekend and reconvene with family on Friday -will have Hospice consult with family (2) Fall Current Visit: Yes Status: Acute Base Code: W19.XXXA - UNSPECIFIED FALL, INITIAL ENCOUNTER Comment: 01/10/17- Had fallen twice prior to admit, PT/OT working with patient. XR of right hip and elbow negative for fracture. -patient continues on 1:1 precautions with family with chair/bed alarm in their absence. 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 Tolerating PO intake without adverse event -decrease accuchecks to qd (4) Generalized weakness Current Visit: Yes Status: Acute Base Code: R53.1 - WEAKNESS Comment: 01/10/17- UA negative, CT abdomen negative on admit. Weakness likely 2/ 2 to malnutrition. chronic anemia and hyponatremia likely contributing. -continue to monitor hgb and electrolytes for acute change -continue pt/ot daily. will likely need [facility] vs [facility] care vs hospice care (5) Dementia Current Visit: Yes Status: Chronic Qualifiers: Dementia type: unspecified type Dementia behavioral disturbance: with behavioral disturbance Qualified Code(s): F03.91 - Unspecified dementia with behavioral disturbance Base Code: F03.90 - UNSPECIFIED DEMENTIA WITHOUT BEHAVIORAL DISTURBANCE Comment: 01/10/17- stable. she has had progressive worsening over the past year with significant decline over the last 6 weeks per daughter and . No longer is participating in usual activities she enjoys such as going out to eat with her daughters, visiting friends, crafting. 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 Explained to daughter these medications may be contributing her n/v, abdominal pain and decreased appetite. Per daughter, they have seen improvement in hallucinations and behavior with these medications but will need to weigh benefits vs risk of continued weight loss. She has had improvement in appetite -encouraged opening drapes to increase sunlight exposure -add melatonin 5mg po qhs -discussed with family need to avoid naps during the day -ativan 1mg IV qhs ordered as needed for severe agitation -discussed risk vs benefit of Perphenazine use during this transition period. Daughter reports hallucinations significantly improved with the use of, noted side effect of medication could cause SIADH and contributing to hyponatremia. Fluid restriction has improved sodium from 118 to 120 overnight. Anticipate gradual increase of sodium with refeeding program and continued fluid restriction. The benefit of continuing the use of Perphenazine at this time outweighs the risk of abruptly discontinuing. If patient transitions to LTC advise geriatric psych eval for possible slow titration off of medication in a controlled environment after she has adjusted to new environment. Family meeting held 01/09 regarding goals of care. Family reporting decreased eating, weight loss, pregressive impariment of short term memory, increase sleeping over the last year with significant worsening over the last 6 weeks. After falling 1 week ago prior to admit had progressive nausea, headache and further increase of sleeping. Family reports decrease in her quality of life, no longer enjoying or participating in usual leisure activies. Family reports she would not like or tolerate a feeding tube should nutritional intake or electrolyte replacement not improve and would require artificial nutrition for life sustaining measure. Family would like the weekend to see if sodium continues to improve to the point she will be out of the seizure risk level, have a period of time she would be lucid and decide if, as a family, would like her send home with hospice and keep comfortable or transfer to larger hospital for more aggresive measures leading to a potential lengthy hospital course. (6) Nausea Current Visit: Yes Status: Acute Base Code: R11.0 - NAUSEA Comment: 01/10/17- resolved but will contiue to assess for frequently -continue nexium 40mg po daily -tolerating slow refeeding program with mild improvement in electrolyte response (7) Laceration of forehead without complication Current Visit: No Status: Acute Qualifiers: Encounter type: initial encounter Qualified Code(s): S01.81XA - Laceration without foreign body of other part of head, initial encounter Base Code: S01.81XA - LACERATION W/O FOREIGN BODY OF OTH PART OF HEAD, INIT ENCNTR Comment: 01/10/17- routine healing. No evidence of infection or wound dehiscence. -laceration from yesterday remains dermabonded and appears to be healing well. no continued bleeding (8) DVT prophylaxis Current Visit: Yes Status: Acute Base Code: [id number] - Comment: 01/10/17- patient at high risk with age, however, feel she is also very high bleed risk with generalized weakness and fall this week and another fall this morning from bed -will add SCD's while in bed (9) DNR (do not resuscitate) Current Visit: Yes Status: Acute Base Code: Z66 - DO NOT RESUSCITATE Comment: 01/10/17- patient and DPOA request DNR status Results - Labs Result Diagrams: 01/07/17 05:50 01/10/17 06:00 Labs Last 24 Hours: Laboratory Results - last 24 hr 01/10/17 06:00 Sodium 126 L Potassium 4.4 Chloride 93 L Carbon Dioxide 28.2 Anion Gap 4.8 L BUN 18 H Creatinine 0.8 Estimated GFR > 60 Random Glucose 72 Calcium 8.2 L Phosphorus 2.9 Magnesium 1.6 Total Bilirubin 0.19 L AST 34 ALT 33 Alkaline Phosphatase 54 Total Protein 4.9 L Albumin 2.6 L Globulin 2.3 Albumin/Globulin Ratio 1.1 DVT/PE Assessment - Risk for VTE Risk for VTE: No Risk Level: High Risk Assessment Date: 01/04/17 Risk Assessment Time: 16:32 VTE Orders Placed or Will Be Placed: No VTE Reason for No Prophylaxis: Contraindicated - Active Medicaitons Current Medications: Current Medications Acetaminophen (Tylenol 500mg Tab) 1,000 mg PO Q6H PRN PRN Reason: Pain - General Last Admin: 01/10/17 10:23 Dose: 1,000 mg Donepezil HCl (Aricept) 5 mg PO DAILY [facility] Last Admin: 01/10/17 10:19 Dose: 5 mg Loperamide HCl (Immodium) 2 mg PO Q4H PRN PRN Reason: Diarrhea Magnesium Oxide (Mag Ox) 400 mg PO BID [facility] Last Admin: 01/10/17 10:19 Dose: 400 mg Melatonin (Melatonin) 5 mg PO QHS PRN PRN Reason: sleep Last Admin: 01/04/17 23:16 Dose: 5 mg Metoprolol Succinate (Toprol Xl) 25 mg PO DAILY [facility] Last Admin: 01/10/17 10:19 Dose: 25 mg Ondansetron HCl (Zofran) 4 mg IVP Q8H PRN PRN Reason: NAUSEA Last Admin: 01/07/17 14:40 Dose: 4 mg Ondansetron HCl (Zofran Odt) 4 mg SL Q8H PRN PRN Reason: NAUSEA/VOMITING Patient Own Med: (Esomeprazole 40 Mg) 1 each PO DAILYAC [facility] Last Admin: 01/10/17 06:48 Dose: 1 each Patient Own Med: (Raloxifene 60 Mg) 1 each PO DAILY [facility] Last Admin: 01/10/17 10:19 Dose: 1 each Patient Own Med: (Vesicare 10 Mg) 1 each PO DAILY [facility] Last Admin: 01/10/17 10:19 Dose: 1 each Patient Own Med: ([place] Thyroid 60 Mg) 1 each PO DAILYTHY [facility] Last Admin: 01/10/17 06:48 Dose: 1 each Patient Own Med: (Perphenazine 4 Mg) 1 each PO QHS [facility] Last Admin: 01/09/17 21:58 Dose: 1 each Valsartan (Diovan) 40 mg PO DAILY [facility] Last Admin: 01/10/17 10:19 Dose: 40 mg Verapamil HCl (Calan Sr) 120 mg PO DAILY [facility] Last Admin: 01/10/17 10:19 Dose: 120 mg AMI Plan - Labs Result Diagrams: 01/07/17 05:50 01/10/17 06:00
--- NOTE | 2017-01-10 17:19 | Physical Therapy Tx Note ---
Physical Therapy Tx Note - Treatment Note Tolerated: Other Total Time Spent With Patient: 10 Physical Therapy Tx Note: Detail (Pt in bed upon arrival. Family not present in room. Pt declined physical therapy, stating she was too tired, but was somewhat confused, stating that she wanted to wait until her mother came back, perhaps meaning her daughter. She indicated her mother AND daughter had gone somewhere and would be back soon.) Physical Therapy Problem List: Detail (1) Decreased Balance 2) Decreased LE strength 3) Supervision to CG with ambulation and transfers 4) Decrease ability to complete sustained physical activity) Physical Therapy Goals: 1) Evaluate Balance using Tinetti Assessment Tool. 2) Increase LE 1/3 muscle grade to improve stability of gait. 3) The patient will ambulate with assistive device a distance of 100 feet with supervision for safety. 4) Independent/supervision for safety with all transfers. 5) The patient will tolerate 30 minutes of physical activity with one rest period. Prognosis: Moderate Physical Therapy Plan: PT one time a day M-F for balance and LE strengthening exercises, transfer and gait training.
[2017-01-10] MEDS: PERPHENAZINE 4 MG PO SCH (22:04)
[2017-01-11] MEDS: ONDANSETRON HCL IV 4 MG/2 ML VIAL IVP PRN (01:46)
[2017-01-11 06:22] LABS: ALB/GLOB RATIO 1.2 (1.1-1.8); ALBUMIN 2.8 gm/dL (3.5-5.0); ALKALINE PHOSPHATASE 61 U/L (38-126); ALT/SGPT 32 U/L (9-52); ANION GAP 5.5 (7-16); AST/SGOT 34 U/L (14-36); BILIRUBIN,TOTAL 0.22 mg/dL (0.2-1.3); BLOOD UREA NITROGEN 17 mg/dL (7-17); CARBON DIOXIDE 27.5 mmol/L (22-30); CREATININE 0.8 mg/dL (0.52-1.04); EST GLOMERULAR FILTRATION RATE > 60 ml/min; GLUCOSE,RANDOM 77 mg/dL (70-110); TOTAL PROTEIN 5.1 gm/dL (6.3-8.2)
[2017-01-11] MEDS: DONEPEZIL HCL 5 MG TABLET PO SCH (09:29)
[2017-01-11] MEDS: VERAPAMIL ER 120 MG TABLET PO SCH (09:29)
[2017-01-11] MEDS: VALSARTAN 80 MG TAB PO SCH (09:29)
[2017-01-11] MEDS: PATIENT OWN MED: ESOMEPRAZOLE 40 MG PO SCH (09:30)
[2017-01-11] MEDS: MAGNESIUM OXIDE 400 MG TABLET PO SCH ×2 (09:30→21:32)
[2017-01-11] MEDS: METOPROLOL SUCC 25 MG TAB.ER PO SCH (09:30)
[2017-01-11] MEDS: ARMOUR THYROID 60 MG PO SCH (09:30)
[2017-01-11] MEDS: PATIENT OWN MED: RALOXIFENE 60 MG PO SCH (09:31)
[2017-01-11] MEDS: PATIENT OWN MED: VESICARE 10 MG PO SCH (09:31)
[2017-01-11] MEDS: ACETAMINOPHEN 500 MG TABLET PO PRN ×3 (10:52→23:09)
--- NOTE | 2017-01-11 18:23 | Physician Progress Note ---
Subjective - Date Date of Physician Progress Note: 01/11/17 - Subjective Subjective Comment: Reports had an episode of nausea late last night that was resolved with Zofran. Otherwise denies complaint, is tolerating po intake rather well minus intermittent episode of nausea. Continues to be more alert, talkative. Eating 80 % of meals. Objective - Vital Signs Vital Signs: Vital Signs - Last 24 Hrs Temp Pulse Resp BP Pulse Ox 01/11/17 08:05 16 01/11/17 08:00 98.3 F 85 16 106/52 90 L 01/11/17 04:54 97.9 F 94 H 18 150/74 93 L 01/11/17 02:12 97.8 F 88 16 156/74 92 L 01/10/17 20:00 98.2 F 87 18 127/34 92 L - General General Appearance: Alert, Oriented x3 (2-3), Cooperative, Other (Cachetic appearing) Limitations: No limitations - Head Head exam: Other (healing laceration to the right temporal region, ecchymosis present from recent fall; ) Head exam detail: Contusion (right temporal area, nearly resolved), General tenderness, Laceration (healed). negative: Govea's sign - Eye Eye exam: Normal appearance, PERRL. negative: Conjunctival injection, Periorbital swelling, Periorbital tenderness, Scleral icterus - ENT ENT exam: Mucous membranes moist Ear exam: negative: Auricular hematoma, Auricular trauma Nasal Exam: negative: Active bleeding, Discharge, Dried blood, Foreign body Mouth exam: negative: Drooling, Laceration, Muffled voice, Tongue elevation - Neck Neck exam: Normal inspection. negative: Meningismus, Tenderness - Respiratory Respiratory exam: Normal lung sounds bilaterally. negative: Rales, Respiratory distress, Rhonchi, Stridor - Cardiovascular Cardiovascular Exam: Regular rate, Normal rhythm, Normal heart sounds, Other ( trace bilat lower extrem pitting edema) Peripheral Pulses: 2+: Dorsalis Pedis (R), Dorsalis Pedis (L) - GI/Abdominal GI/Abdominal exam: Soft, Hyperactive bowel sounds. negative: Distended, Rebound , Rigid, Tenderness - Rectal Rectal exam: Deferred - exam: Deferred - Extremities Extremities exam: Normal capillary refill, Pedal edema. negative: Calf tenderness, Tenderness - Back Back exam: Denies: CVA tenderness (R), CVA tenderness (L) - Neurological Neurological exam: Alert - Psychiatric Psychiatric exam: Normal affect, Normal mood - Skin Skin exam: Normal color (blanchable erythema to coccyx). negative: Abrasion Type of lesion: negative: abrasion Assessment and Plan - Assessment and Plan (1) Failure to thrive Current Visit: Yes Status: Acute Qualifiers: Failure to thrive age range: in adult Qualified Code(s): R62.7 - Adult failure to thrive Base Code: [id number] - Comment: 01/11/17- Patient's appetite continues to improve eating approx 80% of meals and tolerating without nausea or diarrhea. Glucose improved and remaining stable >70. Magnesium, phosphorus, sodium with upward trend. Appears to be responding well to implementation of broth BID to encourage sodium replacement. Concerns remain for re-feeding syndrome but is tolerating refeeding regimen. Nutrition and SW evaluation complete. Preventative skin program in place since admission. Malnutrition with low protein putting at risk for unavoidable skin breakdown. Nursing continuing to off load heels, turn q 2 hours, encourage ambulation to BR as tolerates, pressure relieving surface to chair and bed. -continue to replace electrolytes -contiue MagOx 400mg BID -SL IV as to encourage PO intake and adhere to fluid restriction -phosporus improved at 2.6 -sodium down to 118 1600 01/07, increased to 120 0600 01/08, 0600 / 122, 0600 4 /14 126, 0600 4/15 129 -continue sodium based broth and give 2-4oz glasses of broth to replace sodium. -continue fluid restrict at 1200ml/day, will decrease skin milk intake to 2-8oz glasses skin milk to allow intake of broth -CMP/mag/sodium/phosphorus in am -cardiac monitoring remains NSR with intermittent PVC -caloric intake increase to 1200 calories today -Immodium PRN available if she experiences any diarrhea, may need to decrease caloric intake should this occur (had hyperactive bowel sounds today, no diarrhea at this time) - Seizure precautions in place for hyponatremia- no seizure activity - urine sodium 24, serum osmo 260, urine osmo. 415- concern for SIADH - Family has decided to have her discharge home when electroltyes are stable and she is safe for disharge with [facility] - As long as sodium remain on the upward trend, no acute changes, continues to tolerate PO intake will discharge home Friday - At discharge alma rosa advised family to give only 1-2 cups of broth daily as to prevent hypernatremia as she will not be getting labs at home (2) Fall Current Visit: Yes Status: Acute Base Code: W19.XXXA - UNSPECIFIED FALL, INITIAL ENCOUNTER Comment: 01/11/17- Had fallen twice prior to admit, PT/OT working with patient. XR of right hip and elbow negative for fracture. -patient continues on 1:1 precautions with family with chair/bed alarm in their absence. Family is working to have someone present wtih her throughout day and shift mechanic -continue bed and chair alarms and fall precautions (3) Hypoglycemia Current Visit: Yes Status: Acute Base Code: E16.2 - HYPOGLYCEMIA, UNSPECIFIED Comment: 01/11/17- Continus to remain stable as have improved with patient's impoved oral intake, however, there is concern for refeeding syndrome. Tolerating PO intake without adverse event -decrease accuchecks to qd (4) Generalized weakness Current Visit: Yes Status: Acute Base Code: R53.1 - WEAKNESS Comment: 01/11/17- UA negative, CT abdomen negative on admit. Weakness likely 2/ 2 to malnutrition. chronic anemia and hyponatremia likely contributing. -continue to monitor hgb and electrolytes for acute change -continue pt/ot daily. will likely discharge home Friday with [facility] (5) Dementia Current Visit: Yes Status: Chronic Qualifiers: Dementia type: unspecified type Dementia behavioral disturbance: with behavioral disturbance Qualified Code(s): F03.91 - Unspecified dementia with behavioral disturbance Base Code: F03.90 - UNSPECIFIED DEMENTIA WITHOUT BEHAVIORAL DISTURBANCE Comment: 01/11/17- stable. she has had progressive worsening over the past year with significant decline over the last 6 weeks per daughter and . No longer is participating in usual activities she enjoys such as going out to eat with her daughters, visiting friends, crafting. 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 Explained to daughter these medications may be contributing her n/v, abdominal pain and decreased appetite. Per daughter, they have seen improvement in hallucinations and behavior with these medications but will need to weigh benefits vs risk of continued weight loss. She has had improvement in appetite -encouraged opening drapes to increase sunlight exposure -add melatonin 5mg po qhs -discussed with family need to avoid naps during the day -ativan 1mg IV qhs ordered as needed for severe agitation -discussed risk vs benefit of Perphenazine use during this transition period. Daughter reports hallucinations significantly improved with the use of, noted side effect of medication could cause SIADH and contributing to hyponatremia. Fluid restriction has improved sodium from 118 to 120 overnight. Anticipate gradual increase of sodium with refeeding program and continued fluid restriction. The benefit of continuing the use of Perphenazine at this time outweighs the risk of abruptly discontinuing. If patient transitions to LTC advise geriatric psych eval for possible slow titration off of medication in a controlled environment after she has adjusted to new environment. Family meeting held 01/09 regarding goals of care. Family reporting decreased eating, weight loss, pregressive impariment of short term memory, increase sleeping over the last year with significant worsening over the last 6 weeks. After falling 1 week ago prior to admit had progressive nausea, headache and further increase of sleeping. Family reports decrease in her quality of life, no longer enjoying or participating in usual leisure activies. Family reports she would not like or tolerate a feeding tube should nutritional intake or electrolyte replacement not improve and would require artificial nutrition for life sustaining measure. Family would like the weekend to see if sodium continues to improve to the point she will be out of the seizure risk level, have a period of time she would be lucid and decide if, as a family, would like her send home with hospice and keep comfortable or transfer to larger hospital for more aggresive measures leading to a potential lengthy hospital course. (6) Nausea Current Visit: Yes Status: Acute Base Code: R11.0 - NAUSEA Comment: 01/11/17- intermittent, but will contiue to assess for frequently -continue nexium 40mg po daily -tolerating slow refeeding program with steady improvement in electrolyte response (7) Laceration of forehead without complication Current Visit: No Status: Acute Qualifiers: Encounter type: initial encounter Qualified Code(s): S01.81XA - Laceration without foreign body of other part of head, initial encounter Base Code: S01.81XA - LACERATION W/O FOREIGN BODY OF OTH PART OF HEAD, INIT ENCNTR Comment: 01/11/17- routine healing. No evidence of infection or wound dehiscence. -laceration from yesterday remains dermabonded and appears to be healing well. no continued bleeding (8) DVT prophylaxis Current Visit: Yes Status: Acute Base Code: [id number] - Comment: 01/11/17- patient at high risk with age, however, feel she is also very high bleed risk with generalized weakness and fall this week and another fall this morning from bed -will add SCD's while in bed (9) DNR (do not resuscitate) Current Visit: Yes Status: Acute Base Code: Z66 - DO NOT RESUSCITATE Comment: 01/11/17- patient and DPOA request DNR status Results - Labs Result Diagrams: 01/07/17 05:50 01/11/17 06:00 Labs Last 24 Hours: Laboratory Results - last 24 hr 01/11/17 06:00 Sodium 129 L Potassium 4.4 Chloride 96 L Carbon Dioxide 27.5 Anion Gap 5.5 L BUN 17 Creatinine 0.8 Estimated GFR > 60 Random Glucose 77 Calcium 8.3 L Phosphorus 3.1 Magnesium 1.8 Total Bilirubin 0.22 AST 34 ALT 32 Alkaline Phosphatase 61 Total Protein 5.1 L Albumin 2.8 L Globulin 2.3 Albumin/Globulin Ratio 1.2 DVT/PE Assessment - Risk for VTE Risk for VTE: No Risk Level: High Risk Assessment Date: 01/04/17 Risk Assessment Time: 16:32 VTE Orders Placed or Will Be Placed: No VTE Reason for No Prophylaxis: Contraindicated - Active Medicaitons Current Medications: Current Medications Acetaminophen (Tylenol 500mg Tab) 1,000 mg PO Q6H PRN PRN Reason: Pain - General Last Admin: 01/11/17 17:18 Dose: 1,000 mg Donepezil HCl (Aricept) 5 mg PO DAILY [facility] Last Admin: 01/11/17 09:29 Dose: 5 mg Loperamide HCl (Immodium) 2 mg PO Q4H PRN PRN Reason: Diarrhea Magnesium Oxide (Mag Ox) 400 mg PO BID [facility] Last Admin: 01/11/17 09:30 Dose: 400 mg Melatonin (Melatonin) 5 mg PO QHS PRN PRN Reason: sleep Last Admin: 01/04/17 23:16 Dose: 5 mg Metoprolol Succinate (Toprol Xl) 25 mg PO DAILY [facility] Last Admin: 01/11/17 09:30 Dose: 25 mg Ondansetron HCl (Zofran) 4 mg IVP Q8H PRN PRN Reason: NAUSEA Last Admin: 01/11/17 01:46 Dose: 4 mg Ondansetron HCl (Zofran Odt) 4 mg SL Q8H PRN PRN Reason: NAUSEA/VOMITING Patient Own Med: (Esomeprazole 40 Mg) 1 each PO DAILYAC [facility] Last Admin: 01/11/17 09:30 Dose: 1 each Patient Own Med: (Raloxifene 60 Mg) 1 each PO DAILY [facility] Last Admin: 01/11/17 09:31 Dose: 1 each Patient Own Med: (Vesicare 10 Mg) 1 each PO DAILY [facility] Last Admin: 01/11/17 09:31 Dose: 1 each Patient Own Med: (Gilman Thyroid 60 Mg) 1 each PO DAILYTHY [facility] Last Admin: 01/11/17 09:30 Dose: 1 each Patient Own Med: (Perphenazine 4 Mg) 1 each PO QHS [facility] Last Admin: 01/10/17 22:04 Dose: 1 each Valsartan (Diovan) 40 mg PO DAILY [facility] Last Admin: 01/11/17 09:29 Dose: 40 mg Verapamil HCl (Calan Sr) 120 mg PO DAILY [facility] Last Admin: 01/11/17 09:29 Dose: 120 mg AMI Plan - Labs Result Diagrams: 01/07/17 05:50 01/11/17 06:00
[2017-01-11] MEDS: PERPHENAZINE 4 MG PO SCH (21:38)
[2017-01-12] MEDS: ARMOUR THYROID 60 MG PO SCH (06:24)
[2017-01-12] MEDS: PATIENT OWN MED: ESOMEPRAZOLE 40 MG PO SCH (06:25)
[2017-01-12 06:35] LABS: ALB/GLOB RATIO 1.2 (1.1-1.8); ALBUMIN 2.8 gm/dL (3.5-5.0); ALKALINE PHOSPHATASE 68 U/L (38-126); ALT/SGPT 27 U/L (9-52); ANION GAP 3.8 (7-16); AST/SGOT 35 U/L (14-36); BILIRUBIN,TOTAL 0.24 mg/dL (0.2-1.3); BLOOD UREA NITROGEN 19 mg/dL (7-17); CARBON DIOXIDE 28.2 mmol/L (22-30); CREATININE 0.8 mg/dL (0.52-1.04); EST GLOMERULAR FILTRATION RATE > 60 ml/min; GLUCOSE,RANDOM 81 mg/dL (70-110); TOTAL PROTEIN 5.2 gm/dL (6.3-8.2)
[2017-01-12] MEDS: MAGNESIUM OXIDE 400 MG TABLET PO SCH ×2 (10:17→23:20)
[2017-01-12] MEDS: VERAPAMIL ER 120 MG TABLET PO SCH (10:18)
[2017-01-12] MEDS: DONEPEZIL HCL 5 MG TABLET PO SCH (10:18)
[2017-01-12] MEDS: VALSARTAN 80 MG TAB PO SCH (10:19)
[2017-01-12] MEDS: METOPROLOL SUCC 25 MG TAB.ER PO SCH (10:21)
[2017-01-12] MEDS: PATIENT OWN MED: RALOXIFENE 60 MG PO SCH (10:52)
[2017-01-12] MEDS: PATIENT OWN MED: VESICARE 10 MG PO SCH (10:52)
--- NOTE | 2017-01-12 11:04 | Physician Progress Note ---
Subjective - Date Date of Physician Progress Note: 01/12/17 - Subjective Subjective Comment: Patient denies complaint except feeling weaker than she has today, is tolerating po intake. Nursing reports oxygen went down to 77% yesterday evening and was in the low 80's early this morning. Both episodes responded immediately to oxygen nasal canula. Patient denies DIANA, shortness of breath, chills, fever, cold-like symptoms. Family reports notes a dry non-productive cough that is not unusual for her. Objective - Vital Signs Vital Signs: Vital Signs - Last 24 Hrs Temp Pulse Resp BP Pulse Ox 01/12/17 09:00 98.1 F 115 H 16 152/75 90 L 01/12/17 05:06 97.6 F 95 H 12 146/74 93 L 01/11/17 21:00 16 01/11/17 20:00 98.3 F 84 14 118/67 92 L 01/11/17 16:00 98.2 F 82 16 120/64 90 L - General General Appearance: Alert, Oriented x3 (2-3), Cooperative, Other (Cachetic appearing) Limitations: No limitations - Head Head exam: Other (healing laceration to the right temporal region, ecchymosis present from recent fall; ) Head exam detail: Contusion (right temporal area, nearly resolved). negative: Govea's sign - Eye Eye exam: Normal appearance, PERRL. negative: Conjunctival injection, Periorbital swelling, Periorbital tenderness, Scleral icterus - ENT ENT exam: Mucous membranes moist Ear exam: negative: Auricular hematoma, Auricular trauma Nasal Exam: negative: Active bleeding, Discharge, Dried blood, Foreign body Mouth exam: negative: Drooling, Laceration, Muffled voice, Tongue elevation - Neck Neck exam: Normal inspection. negative: Meningismus, Tenderness - Respiratory Respiratory exam: Normal lung sounds bilaterally, Decreased breath sounds ( bilat bases). negative: Accessory muscle use, Rales, Respiratory distress, Rhonchi, Stridor, Wheezes - Cardiovascular Cardiovascular Exam: Regular rate, Normal rhythm, Normal heart sounds, Other ( trace bilat lower extrem pitting edema) Peripheral Pulses: 2+: Dorsalis Pedis (R), Dorsalis Pedis (L) - GI/Abdominal GI/Abdominal exam: Soft, Normal bowel sounds. negative: Distended, Rebound, Rigid, Tenderness - Rectal Rectal exam: Deferred - exam: Deferred - Extremities Extremities exam: Normal capillary refill, Pedal edema (trace BLE, pitting). negative: Calf tenderness, Tenderness - Back Back exam: Denies: CVA tenderness (R), CVA tenderness (L) - Neurological Neurological exam: Alert - Psychiatric Psychiatric exam: Normal affect, Normal mood - Skin Skin exam: Normal color (blanchable erythema to coccyx). negative: Abrasion Type of lesion: negative: abrasion Assessment and Plan - Assessment and Plan (1) Failure to thrive Current Visit: Yes Status: Acute Qualifiers: Failure to thrive age range: in adult Qualified Code(s): R62.7 - Adult failure to thrive Base Code: [id number] - Comment: 01/12/17- Patient's appetite continues to improve eating approx 80% of meals and tolerating without nausea or diarrhea. Glucose improved and remaining stable >70. Magnesium, phosphorus, sodium with upward trend. Appears to be responding well to implementation of broth BID to encourage sodium replacement. Concerns remain for re-feeding syndrome but is tolerating refeeding regimen. Nutrition and SW evaluation complete. Preventative skin program in place since admission. Malnutrition with low protein putting at risk for unavoidable skin breakdown. Nursing continuing to off load heels, turn q 2 hours, encourage ambulation to BR as tolerates, pressure relieving surface to chair and bed. -continue to replace electrolytes -contiue MagOx 400mg BID -SL IV as to encourage PO intake and adhere to fluid restriction -phosporus improved at 2.6 -sodium down to 118 1600 01/07, increased to 120 0600 01/08, 0600 01/09 122, 0600 14 126, 0600 4/15 129, 16 0600 129 -continue sodium based broth and give 2-4oz glasses of broth to replace sodium. -continue fluid restrict at 1200ml/day, will decrease skin milk intake to 2-8oz glasses skin milk to allow intake of broth -CMP/mag/sodium/phosphorus in am -cardiac monitoring remains NSR with intermittent PVC -caloric intake increased to 1200 calories -Immodium PRN available if she experiences any diarrhea, may need to decrease caloric intake should this occur (had hyperactive bowel sounds today, no diarrhea at this time) - Seizure precautions in place for hyponatremia- no seizure activity - urine sodium 24, serum osmo 260, urine osmo. 415- concern for SIADH - Family has decided to have her discharge home when electroltyes are stable and she is safe for disharge with [facility] - As long as sodium remain on the upward trend, no acute changes, continues to tolerate PO intake will discharge home Friday - At discharge alma rosa advised family to give only 1-2 cups of broth daily as to prevent hypernatremia as she will not be getting labs at home (2) Hypoxia Current Visit: Yes Status: Acute Base Code: R09.02 - HYPOXEMIA Comment: 01/12- SPO2 77% late yesterday and 83% early this am, recovered to >92% with use of oxygen. Has non-productive dry cough which family reports is usual for patient, has been afebrile. - CXR to r/o pneumonia vs pleural effusion - telemetry has remained NSR - continue oxygen as needed to keep SPO2 > 92% - will ask [employer] to complete oxygen qualifier prior to discharge - family is aware of plan and in agreement. They do not wish to have further medical work up outside of non-invasive testing such as CXR and O2 qualifier so she can have what oxygen support she needs at time of discharge home with hospice. (3) Fall Current Visit: Yes Status: Acute Base Code: W19.XXXA - UNSPECIFIED FALL, INITIAL ENCOUNTER Comment: 01/12/17- Had fallen twice prior to admit, PT/OT working with patient. XR of right hip and elbow negative for fracture. -patient continues on 1:1 precautions with family with chair/bed alarm in their absence. Family is working to have someone present wtih her throughout day and night court magistrate -continue bed and chair alarms and fall precautions (4) Hypoglycemia Current Visit: Yes Status: Acute Base Code: E16.2 - HYPOGLYCEMIA, UNSPECIFIED Comment: 01/12/17- Continus to remain stable as have improved with patient's impoved oral intake, however, there is concern for refeeding syndrome. Tolerating PO intake without adverse event -decrease accuchecks to qd (5) Generalized weakness Current Visit: Yes Status: Acute Base Code: R53.1 - WEAKNESS Comment: 01/12/17- UA negative, CT abdomen negative on admit. Weakness likely 2/ 2 to malnutrition. chronic anemia and hyponatremia likely contributing. -continue to monitor hgb and electrolytes for acute change -continue pt/ot daily. will likely discharge home Friday with [facility] (6) Dementia Current Visit: Yes Status: Chronic Qualifiers: Dementia type: unspecified type Dementia behavioral disturbance: with behavioral disturbance Qualified Code(s): F03.91 - Unspecified dementia with behavioral disturbance Base Code: F03.90 - UNSPECIFIED DEMENTIA WITHOUT BEHAVIORAL DISTURBANCE Comment: 01/12/17- stable. she has had progressive worsening over the past year with significant decline over the last 6 weeks per daughter and . No longer is participating in usual activities she enjoys such as going out to eat with her daughters, visiting friends, crafting. 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 Explained to daughter these medications may be contributing her n/v, abdominal pain and decreased appetite. Per daughter, they have seen improvement in hallucinations and behavior with these medications but will need to weigh benefits vs risk of continued weight loss. She has had improvement in appetite -encouraged opening drapes to increase sunlight exposure -add melatonin 5mg po qhs -discussed with family need to avoid naps during the day -ativan 1mg IV qhs ordered as needed for severe agitation -discussed risk vs benefit of Perphenazine use during this transition period. Daughter reports hallucinations significantly improved with the use of, noted side effect of medication could cause SIADH and contributing to hyponatremia. Fluid restriction has improved sodium from 118 to 120 overnight. Anticipate gradual increase of sodium with refeeding program and continued fluid restriction. The benefit of continuing the use of Perphenazine at this time outweighs the risk of abruptly discontinuing. If patient transitions to LTC advise geriatric psych eval for possible slow titration off of medication in a controlled environment after she has adjusted to new environment. Family meeting held 01/09 regarding goals of care. Family reporting decreased eating, weight loss, pregressive impariment of short term memory, increase sleeping over the last year with significant worsening over the last 6 weeks. After falling 1 week ago prior to admit had progressive nausea, headache and further increase of sleeping. Family reports decrease in her quality of life, no longer enjoying or participating in usual leisure activies. Family reports she would not like or tolerate a feeding tube should nutritional intake or electrolyte replacement not improve and would require artificial nutrition for life sustaining measure. Family would like the weekend to see if sodium continues to improve to the point she will be out of the seizure risk level, have a period of time she would be lucid and decide if, as a family, would like her send home with hospice and keep comfortable or transfer to larger hospital for more aggresive measures leading to a potential lengthy hospital course. (7) Nausea Current Visit: Yes Status: Acute Base Code: R11.0 - NAUSEA Comment: 01/12/17- intermittent, but will contiue to assess for frequently -continue nexium 40mg po daily -tolerating slow refeeding program with steady improvement in electrolyte response (8) Laceration of forehead without complication Current Visit: No Status: Acute Qualifiers: Encounter type: initial encounter Qualified Code(s): S01.81XA - Laceration without foreign body of other part of head, initial encounter Base Code: S01.81XA - LACERATION W/O FOREIGN BODY OF OTH PART OF HEAD, INIT ENCNTR Comment: 01/12/17- routine healing. No evidence of infection or wound dehiscence. -laceration from yesterday remains dermabonded and appears to be healing well. no continued bleeding (9) DVT prophylaxis Current Visit: Yes Status: Acute Base Code: [id number] - Comment: 01/12/17- patient at high risk with age, however, feel she is also very high bleed risk with generalized weakness and fall this week and another fall this morning from bed -will add SCD's while in bed (10) DNR (do not resuscitate) Current Visit: Yes Status: Acute Base Code: Z66 - DO NOT RESUSCITATE Comment: 01/12/17- patient and DPOA request DNR status Results - Labs Result Diagrams: 01/07/17 05:50 01/12/17 05:20 Labs Last 24 Hours: Laboratory Results - last 24 hr 01/12/17 05:20 Sodium 129 L Potassium 4.1 Chloride 97 L Carbon Dioxide 28.2 Anion Gap 3.8 L BUN 19 H Creatinine 0.8 Estimated GFR > 60 Random Glucose 81 Calcium 8.3 L Magnesium 1.9 Total Bilirubin 0.24 AST 35 ALT 27 Alkaline Phosphatase 68 Total Protein 5.2 L Albumin 2.8 L Globulin 2.4 Albumin/Globulin Ratio 1.2 DVT/PE Assessment - Risk for VTE Risk for VTE: No Risk Level: High Risk Assessment Date: 01/04/17 Risk Assessment Time: 16:32 VTE Orders Placed or Will Be Placed: No VTE Reason for No Prophylaxis: Contraindicated - Active Medicaitons Current Medications: Current Medications Acetaminophen (Tylenol 500mg Tab) 1,000 mg PO Q6H PRN PRN Reason: Pain - General Last Admin: 01/11/17 23:09 Dose: 1,000 mg Donepezil HCl (Aricept) 5 mg PO DAILY [facility] Last Admin: 01/12/17 10:18 Dose: 5 mg Loperamide HCl (Immodium) 2 mg PO Q4H PRN PRN Reason: Diarrhea Magnesium Oxide (Mag Ox) 400 mg PO BID [facility] Last Admin: 01/12/17 10:17 Dose: 400 mg Melatonin (Melatonin) 5 mg PO QHS PRN PRN Reason: sleep Last Admin: 01/04/17 23:16 Dose: 5 mg Metoprolol Succinate (Toprol Xl) 25 mg PO DAILY [facility] Last Admin: 01/12/17 10:21 Dose: 25 mg Ondansetron HCl (Zofran) 4 mg IVP Q8H PRN PRN Reason: NAUSEA Last Admin: 01/11/17 01:46 Dose: 4 mg Ondansetron HCl (Zofran Odt) 4 mg SL Q8H PRN PRN Reason: NAUSEA/VOMITING Patient Own Med: (Esomeprazole 40 Mg) 1 each PO DAILYAC [facility] Last Admin: 01/12/17 06:25 Dose: 1 each Patient Own Med: (Raloxifene 60 Mg) 1 each PO DAILY [facility] Last Admin: 01/12/17 10:52 Dose: 1 each Patient Own Med: (Vesicare 10 Mg) 1 each PO DAILY [facility] Last Admin: 01/12/17 10:52 Dose: 1 each Patient Own Med: (Aurora Thyroid 60 Mg) 1 each PO DAILYTHY [facility] Last Admin: 01/12/17 06:24 Dose: 1 each Patient Own Med: (Perphenazine 4 Mg) 1 each PO QHS [facility] Last Admin: 01/11/17 21:38 Dose: 1 each Valsartan (Diovan) 40 mg PO DAILY [facility] Last Admin: 01/12/17 10:19 Dose: 40 mg Verapamil HCl (Calan Sr) 120 mg PO DAILY [facility] Last Admin: 01/12/17 10:18 Dose: 120 mg AMI Plan - Labs Result Diagrams: 01/07/17 05:50 01/12/17 05:20
[2017-01-12] MEDS: ACETAMINOPHEN 500 MG TABLET PO PRN (12:02)
[2017-01-12] MEDS: ONDANSETRON HCL IV 4 MG/2 ML VIAL IVP PRN ×2 (13:26→21:26)
[2017-01-12] MEDS ORDERED: ASPIRIN 325 MG TABLET PO ONE (18:05)
[2017-01-12] MEDS ORDERED: ONDANSETRON HCL IV 4 MG/2 ML VIAL IVP ONE (18:06)
[2017-01-12] MEDS ORDERED: LEVOFLOXACIN/D5W 750 MG in DEXTROSE 1 BAG IVPB SCH (18:15)
[2017-01-12] MEDS: PERPHENAZINE 4 MG PO SCH (21:28)
[2017-01-13] MEDS: ACETAMINOPHEN 500 MG TABLET PO PRN ×2 (02:00→12:20)
[2017-01-13] MEDS: MELATONIN 5 MG TABLET PO PRN (02:00)
[2017-01-13] MEDS: ARMOUR THYROID 60 MG PO SCH (06:14)
[2017-01-13] MEDS: PATIENT OWN MED: ESOMEPRAZOLE 40 MG PO SCH (06:14)
[2017-01-13 06:42] LABS: HEMATOCRIT 28.8 % (35.0-47.0); HEMOGLOBIN 9.5 gm/dl (11.6-16.0); MEAN CELL VOLUME 95.4 fl (81-97); MEAN PLATELET VOLUME 9.5 fl (7.4-10.4); PLATELET COUNT 226 K/uL (130-400); RED BLOOD COUNT 3.02 M/uL (3.80-5.40); RED CELL DISTRIBUTION WIDTH 13.9 % (11.5-14.5); WHITE BLOOD COUNT W/O DIFF 5.2 K/uL (4.2-12.2)
[2017-01-13 06:48] LABS: MEAN CORPUSCULAR HEMOGLOBIN 31.4 pg (27-33)
[2017-01-13 07:04] LABS: ALB/GLOB RATIO 1.2 (1.1-1.8); ALKALINE PHOSPHATASE 76 U/L (38-126); ALT/SGPT 30 U/L (9-52); ANION GAP 5.7 (7-16); AST/SGOT 30 U/L (14-36); BILIRUBIN,TOTAL 0.28 mg/dL (0.2-1.3); BLOOD UREA NITROGEN 20 mg/dL (7-17); CARBON DIOXIDE 27.3 mmol/L (22-30); CREATININE 0.9 mg/dL (0.52-1.04); EST GLOMERULAR FILTRATION RATE > 60 ml/min; GLUCOSE,RANDOM 83 mg/dL (70-110); TOTAL PROTEIN 5.6 gm/dL (6.3-8.2)
--- NOTE | 2017-01-13 07:59 | RADIOLOGY REPORT ---
EXAM: CHEST, TWO VIEWS HISTORY: PATIENT HAS WEAKNESS, HYPOXIA, AND RECENT FALL. TECHNIQUE: Two views of the chest were provided along with the comparison study dated 01/07/17. FINDINGS: The cardiac silhouette is obscured. Prominent hilar pulmonary vasculature are identified consistent with COPD changes. Bilateral lower lobe moderate passive atelectasis and/or infiltrate is identified. Moderate bilateral pleural effusions are identified. No pneumothorax is noted. IMPRESSION: COPD CHANGES ARE IDENTIFIED WITH BILATERAL LOWER LOBE PASSIVE ATELECTASIS AND/ OR INFILTRATE WITH PLEURAL EFFUSIONS. NO PNEUMOTHORAX IS NOTED. FOLLOW-UP PA AND LATERAL VIEWS OF THE CHEST CAN OBTAINED UNTIL RESOLUTION OF FINDINGS. JOB NUMBER: [id number] MTDD
[2017-01-13] MEDS: ONDANSETRON HCL IV 4 MG/2 ML VIAL IVP PRN (08:21)
[2017-01-13] MEDS: VERAPAMIL ER 120 MG TABLET PO SCH (09:55)
[2017-01-13] MEDS: VALSARTAN 80 MG TAB PO SCH (09:55)
[2017-01-13] MEDS: DONEPEZIL HCL 5 MG TABLET PO SCH (09:55)
[2017-01-13] MEDS: METOPROLOL SUCC 25 MG TAB.ER PO SCH (09:56)
[2017-01-13] MEDS: PATIENT OWN MED: RALOXIFENE 60 MG PO SCH (09:56)
[2017-01-13] MEDS: MAGNESIUM OXIDE 400 MG TABLET PO SCH (09:56)
[2017-01-13] MEDS: PATIENT OWN MED: VESICARE 10 MG PO SCH (09:56)
--- NOTE | 2017-01-13 11:28 | Discharge Summary ---
Providers Discharge Summary Date: 01/13/17 Date of admission: 01/03/17 21:36 Expected Date of Discharge: 01/13/17 Attending physician: SUZANNE JUNIOR Primary care physician: CHI PFEIFFER Physical Exam - Vital Signs Vital Signs: Vital Signs - Last 24 Hrs Temp Pulse Resp BP BP Pulse Ox 01/13/17 08:43 20 01/13/17 06:47 97.4 F L 97 H 16 156/83 97 01/13/17 01:55 98.1 F 100 H 12 150/70 89 L 01/12/17 20:59 92 H 12 01/12/17 19:46 98.2 F 94 H 16 146/77 93 L 01/12/17 17:00 86 18 144/62 78 L 01/12/17 13:00 100 H 22 135/70 82 L - General General Appearance: Alert, Oriented x3 (2-3), Cooperative, Other (Cachetic appearing) Limitations: No limitations - Head Head exam: Other (healing laceration to the right temporal region, ecchymosis present from recent fall; ) Head exam detail: Contusion (right temporal area, nearly resolved). negative: Govea's sign - Eye Eye exam: Normal appearance, PERRL. negative: Conjunctival injection, Periorbital swelling, Periorbital tenderness, Scleral icterus - ENT ENT exam: Mucous membranes moist Ear exam: negative: Auricular hematoma, Auricular trauma Nasal Exam: negative: Active bleeding, Discharge, Dried blood, Foreign body Mouth exam: negative: Drooling, Laceration, Muffled voice, Tongue elevation - Neck Neck exam: Normal inspection. negative: Meningismus, Tenderness - Respiratory Respiratory exam: Normal lung sounds bilaterally, Decreased breath sounds ( bilat bases). negative: Accessory muscle use, Rales, Respiratory distress, Rhonchi, Stridor, Wheezes - Cardiovascular Cardiovascular Exam: Regular rate, Normal rhythm, Normal heart sounds, Other ( trace bilat lower extrem pitting edema) Peripheral Pulses: 2+: Dorsalis Pedis (R), Dorsalis Pedis (L) - GI/Abdominal GI/Abdominal exam: Soft, Normal bowel sounds. negative: Distended, Rebound, Rigid, Tenderness - Rectal Rectal exam: Deferred - exam: Deferred - Extremities Extremities exam: Normal capillary refill, Pedal edema (trace BLE, pitting). negative: Calf tenderness, Tenderness - Back Back exam: Denies: CVA tenderness (R), CVA tenderness (L) - Neurological Neurological exam: Alert - Psychiatric Psychiatric exam: Normal affect, Normal mood - Skin Skin exam: Normal color (blanchable erythema to coccyx). negative: Abrasion Type of lesion: negative: abrasion Hospitalization - Hospitalization Admission Diagnosis: Generalized weakness. Headache. Dehydration. Unintentional weight loss. Chronic abdominal pain - Problem List/Discharge Diagnosis (1) Failure to thrive Current Visit: Yes Status: Acute Discharge Diagnosis: Failure to thrive age range: in adult Qualified Code(s): R62.7 - Adult failure to thrive Base Code: [id number] - Comment: 01/13/17- Patient's appetite continues to improve eating approx 80% of meals and tolerating without nausea or diarrhea. Glucose improved and remaining stable >70. Responded well to implementation of broth TID to encourage sodium replacement without adverse effect. Nutrition and SW evaluation complete. Preventative skin program in place since admission. Malnutrition with low protein put at risk for unavoidable skin breakdown. Skin remained intact during hospitalization. Nursing continued to off load heels, turn q 2 hours, encourage ambulation to BR as tolerated, pressure relieving surface to chair and bed. Magnesium and phosphorus normalized at time of discharge. Sodium with upward trend wtih level of 126 on the day of dishcarge. No seizure activity during hospitalization. HgB dropped to 9.5 this am, is asymptomatic. No hematuria/GI loss. Family is aware of plan and in agreement. They do not wish to have further medical work up outside of non-invasive testing such as CXR and O2 qualifier so she can have what oxygen support she needs at time of discharge home with hospice. -contiue MagOx 400mg BID -continue sodium based broth and give 1- 2-4oz glasses of broth to maintain sodium. -continue fluid restrict at 1200ml/day -continue caloric intake at 1200 calories/day - urine sodium 24, serum osmo 260, urine osmo. 415- concern for SIADH - Family has decided to have her discharge home when electroltyes are stable and she is safe for disharge with [facility] - At discharge alma rosa advised family to give only 1-2 cups of broth daily as to prevent hypernatremia as she will not be getting labs at home (2) Hypoxia Current Visit: Yes Status: Acute Base Code: R09.02 - HYPOXEMIA Comment: 01/13- SPO2 77% late 01/11 and 83% early am 01/12, recovered to >92% with use of oxygen. Has non-productive dry cough which family reports is usual for patient, has been afebrile. CXR with COPD, bilat lower lobe atelectasis and/or infiltrate with pleural effusion. Has remained afebrile. WBC normal this am. Clinical picture does not reflect acute infectious process but will empirically treat. Family in agreement. Home O2 qualifier done and does qualify for home O2. [facility] aware. Levaquin 750mg IVPB given day before discharge and will continue PO Q 48 hours x 5 doses (3) Fall Current Visit: Yes Status: Acute Base Code: W19.XXXA - UNSPECIFIED FALL, INITIAL ENCOUNTER Comment: 01/13/17- Had fallen twice prior to admit, PT/OT working with patient. XR of right hip and elbow negative for fracture. Family will continue to provide 21/04 supervision with the assist of [facility] at home (4) Hypoglycemia Current Visit: Yes Status: Acute Base Code: E16.2 - HYPOGLYCEMIA, UNSPECIFIED Comment: 01/13/17- Continus to remain stable as have improved with patient's impoved oral intake, however, there was concern for refeeding syndrome. Tolerating PO intake without adverse event. Will not continue accu checks at discharge. (5) Generalized weakness Current Visit: Yes Status: Acute Base Code: R53.1 - WEAKNESS Comment: 01/13/17- UA negative and CT abdomen negative on admit. Weakness likely 2/2 to malnutrition. Chronic anemia and hyponatremia and malnutrition likely contributed. Ambulated to with assist during hospitization. Advise assist with household ambulation at time of discharge. (6) Dementia Current Visit: Yes Status: Chronic Discharge Diagnosis: Dementia type: unspecified type Dementia behavioral disturbance: with behavioral disturbance Qualified Code(s): F03.91 - Unspecified dementia with behavioral disturbance Base Code: F03.90 - UNSPECIFIED DEMENTIA WITHOUT BEHAVIORAL DISTURBANCE Comment: 01/13/17- stable. she has had progressive worsening over the past year with significant decline over the last 6 weeks per daughter and . No longer is participating in usual activities she enjoys such as going out to eat with her daughters, visiting friends, crafting. 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 Explained to daughter these medications may be contributing her n/v, abdominal pain and decreased appetite. Per daughter, they have seen improvement in hallucinations and behavior with these medications but will need to weigh benefits vs risk of continued weight loss. She has had improvement in appetite -encouraged opening drapes to increase sunlight exposure -add melatonin 5mg po qhs -discussed with family need to avoid naps during the day -ativan 1mg IV qhs ordered as needed for severe agitation -discussed risk vs benefit of Perphenazine use during this transition period. Daughter reports hallucinations significantly improved with the use of, noted side effect of medication could cause SIADH and contributing to hyponatremia. Fluid restriction has improved sodium from 118 to 120 overnight. Anticipate gradual increase of sodium with refeeding program and continued fluid restriction. The benefit of continuing the use of Perphenazine at this time outweighs the risk of abruptly discontinuing. If patient transitions to LTC advise geriatric psych eval for possible slow titration off of medication in a controlled environment after she has adjusted to new environment. Family meeting held 01/09 regarding goals of care. Family reporting decreased eating, weight loss, pregressive impariment of short term memory, increase sleeping over the last year with significant worsening over the last 6 weeks. After falling 1 week ago prior to admit had progressive nausea, headache and further increase of sleeping. Family reports decrease in her quality of life, no longer enjoying or participating in usual leisure activies. Family reports she would not like or tolerate a feeding tube should nutritional intake or electrolyte replacement not improve and would require artificial nutrition for life sustaining measure. Family would like the weekend to see if sodium continues to improve to the point she will be out of the seizure risk level, have a period of time she would be lucid and decide if, as a family, would like her send home with hospice and keep comfortable or transfer to larger hospital for more aggresive measures leading to a potential lengthy hospital course. (7) Nausea Current Visit: Yes Status: Acute Base Code: R11.0 - NAUSEA Comment: 01/13/17- intermittent, but will contiue to assess for frequently -continue nexium 40mg po daily -tolerating slow refeeding program with steady improvement in electrolyte response (8) Laceration of forehead without complication Current Visit: No Status: Acute Discharge Diagnosis: Encounter type: initial encounter Qualified Code(s): S01.81XA - Laceration without foreign body of other part of head, initial encounter Base Code: S01.81XA - LACERATION W/O FOREIGN BODY OF OTH PART OF HEAD, INIT ENCNTR Comment: 01/13/17- routine healing. No evidence of infection or wound dehiscence. -laceration from yesterday remains dermabonded and appears to be healing well. no continued bleeding (9) DVT prophylaxis Current Visit: Yes Status: Acute Base Code: [id number] - Comment: 01/13/17- patient at high risk with age and history of falls. SCD's used during hospitalization. (10) DNR (do not resuscitate) Current Visit: Yes Status: Acute Base Code: Z66 - DO NOT RESUSCITATE Comment: 01/13/17- patient and DPOA request DNR status - Hospitalization Course Disposition: Hospice care; pt to live @home Hospital Course: 86yo female with CC of weakness. She has a history of HTN, headaches, hypothyroidism and dementia. Patient was brought to the ED last night by her daughter. She had been seen in the [facility] ED at total of 3 times this week She was evaluated on 12/31 after daughter states she got out of bed had a fall and hit her head on the grandfather clock. Had negatvie head and Cspine CT scans that night in the ED and laceration was repaired. The next day patient was complaining of headache and generalized abdominal pain. daughter called EMS. she was found to have glucose of 68 and then 60. she was evaluated in the ED again, given an amp of D5 with improvement in glucose. underwent repeat Head Ct to eval for latent bleed which was negative. Had abdominal CT as well without acute process noted. Daughter brought her in last night ue to continued headache, generalized abdominal pain and vomiting. While in the ED last night, patient had another head CT which was negative for bleed or acute changes. . CBC showed stable hgb from previous visits this week at 11.4. CMP showed stable hyponatremia with sodium of 126. BUN and Cr actually improved from 4/5 at 24 and 1.0. UA negative for infection but did have positive ketones. Patient was afebrile, and blood pressure stable at 137/72. She was admitted for generalized weakness, nausea/vomiting. 01/04/17- Patient resting comfortably in bed. Daughter is at bedside. Daughter provides much of the history. she states her mother's dementia has been getting progressively worse over the past year and significantly worse the past 4-5 months. She says this past year her mother's appetite has been decreasing and she has been losing weight. She states in august she was started on aricept for her dementia and was then started on the perphenazine for hallucinations in October by her pcp. She says this past week her mother has hardly eaten or drank anything. She says on 01/01 her glucose was low and that was the first time they had checked her glucose. Daughter says she has just noted significant changes this week in memory, appetite and strength. no recent medication changes. has not been coughing or having other respiratory symptoms. PCP: Chaka Procedures: Imaging and X-Rays 01/05/17 07:57 CERVICAL SPINE WO CONTRAST [CT] Stat HEAD WO CONTRAST [CT] Stat 01/05/17 11:59 ELBOW, RIGHT 3 VIEWS [RAD] Stat FOREARM, RIGHT [RAD] Stat 01/05/17 18:53 HIP,UNILAT, 2-3 VIEW RIGHT [RAD] Stat 01/07/17 11:26 CHEST AP or PA ONLY [RAD] Stat 01/12/17 12:36 CHEST 2 VIEWS [RAD] Stat Cardiology Procedures 01/06/17 13:16 Layout Former .Continuous Abnormal Labs: Abnormal Lab Results 01/04/17 01/04/17 01/04/17 Range/Units 07:40 08:10 08:10 WBC 2.9 L (4.2-12.2) K/uL RBC 3.65 L (3.80-5.40) M/uL Hgb 11.4 L (11.6-16.0) gm/dl Hct 33.9 L (35.0-47.0) % Lymphocytes % (16-45) % Monocytes % 14.6 H (0-9) % Sodium 128 L (136-145) mmol/L Chloride 94 L (98-107) mmol/L Carbon Dioxide 21.5 L (22-30) mmol/L Anion Gap (7-16) BUN 19 H (7-17) mg/dL POC Glucose 51 L (70-110) mg/dL Random Glucose 45 L* (70-110) mg/dL Serum Osmolality (280-295) mOsm/kg Calcium 8.2 L (8.5-10.1) mg/dL Phosphorus (2.5-4.5) mg/dL Magnesium (1.6-2.3) mg/dL Total Bilirubin (0.2-1.3) mg/dL AST 38 H (14-36) U/L Total Protein 6.0 L (6.3-8.2) gm/dL Albumin (3.5-5.0) gm/dL Urine Sodium (30-90) mmol/L 01/04/17 01/04/17 01/05/17 Range/Units 17:00 21:32 07:13 WBC (4.2-12.2) K/uL RBC 3.62 L (3.80-5.40) M/uL Hgb 11.3 L (11.6-16.0) gm/dl Hct 33.2 L (35.0-47.0) % Lymphocytes % 14.3 L (16-45) % Monocytes % 12.2 H (0-9) % Sodium (136-145) mmol/L Chloride (98-107) mmol/L Carbon Dioxide (22-30) mmol/L Anion Gap (7-16) BUN (7-17) mg/dL POC Glucose 238 H 203 H (70-110) mg/dL Random Glucose (70-110) mg/dL Serum Osmolality (280-295) mOsm/kg Calcium (8.5-10.1) mg/dL Phosphorus (2.5-4.5) mg/dL Magnesium (1.6-2.3) mg/dL Total Bilirubin (0.2-1.3) mg/dL AST (14-36) U/L Total Protein (6.3-8.2) gm/dL Albumin (3.5-5.0) gm/dL Urine Sodium (30-90) mmol/L 01/05/17 01/06/17 01/06/17 Range/Units 07:13 06:25 06:25 WBC (4.2-12.2) K/uL RBC 3.59 L (3.80-5.40) M/uL Hgb 11.3 L (11.6-16.0) gm/dl Hct 32.7 L (35.0-47.0) % Lymphocytes % (16-45) % Monocytes % 10.3 H (0-9) % Sodium 127 L 121 L (136-145) mmol/L Chloride 96 L 90 L (98-107) mmol/L Carbon Dioxide (22-30) mmol/L Anion Gap 4.7 L 2.6 L (7-16) BUN (7-17) mg/dL POC Glucose (70-110) mg/dL Random Glucose (70-110) mg/dL Serum Osmolality (280-295) mOsm/kg Calcium 8.2 L (8.5-10.1) mg/dL Phosphorus (2.5-4.5) mg/dL Magnesium (1.6-2.3) mg/dL Total Bilirubin (0.2-1.3) mg/dL AST 38 H (14-36) U/L Total Protein 5.6 L 5.3 L (6.3-8.2) gm/dL Albumin 3.1 L 2.8 L (3.5-5.0) gm/dL Urine Sodium (30-90) mmol/L 01/06/17 01/06/17 01/07/17 Range/Units 06:25 18:18 05:50 WBC 3.9 L (4.2-12.2) K/uL RBC 3.20 L (3.80-5.40) M/uL Hgb 10.0 L (11.6-16.0) gm/dl Hct 29.1 L (35.0-47.0) % Lymphocytes % (16-45) % Monocytes % 10.1 H (0-9) % Sodium 118 L* (136-145) mmol/L Chloride 87 L (98-107) mmol/L Carbon Dioxide (22-30) mmol/L Anion Gap 3.9 L (7-16) BUN 19 H (7-17) mg/dL POC Glucose (70-110) mg/dL Random Glucose (70-110) mg/dL Serum Osmolality (280-295) mOsm/kg Calcium 7.9 L (8.5-10.1) mg/dL Phosphorus 1.5 L 1.7 L (2.5-4.5) mg/dL Magnesium 1.2 L 1.2 L (1.6-2.3) mg/dL Total Bilirubin (0.2-1.3) mg/dL AST (14-36) U/L Total Protein (6.3-8.2) gm/dL Albumin (3.5-5.0) gm/dL Urine Sodium (30-90) mmol/L 01/07/17 01/07/17 01/07/17 Range/Units 05:50 05:50 16:14 WBC (4.2-12.2) K/uL RBC (3.80-5.40) M/uL Hgb (11.6-16.0) gm/dl Hct (35.0-47.0) % Lymphocytes % (16-45) % Monocytes % (0-9) % Sodium 120 L 118 L* (136-145) mmol/L Chloride 88 L (98-107) mmol/L Carbon Dioxide (22-30) mmol/L Anion Gap 3.1 L (7-16) BUN 18 H (7-17) mg/dL POC Glucose (70-110) mg/dL Random Glucose (70-110) mg/dL Serum Osmolality (280-295) mOsm/kg Calcium 8.1 L (8.5-10.1) mg/dL Phosphorus 1.8 L 2.4 L (2.5-4.5) mg/dL Magnesium 1.3 L (1.6-2.3) mg/dL Total Bilirubin (0.2-1.3) mg/dL AST 43 H (14-36) U/L Total Protein 4.9 L (6.3-8.2) gm/dL Albumin 2.6 L (3.5-5.0) gm/dL Urine Sodium (30-90) mmol/L 01/07/17 01/07/17 01/08/17 Range/Units 16:14 18:15 05:55 WBC (4.2-12.2) K/uL RBC (3.80-5.40) M/uL Hgb (11.6-16.0) gm/dl Hct (35.0-47.0) % Lymphocytes % (16-45) % Monocytes % (0-9) % Sodium 120 L (136-145) mmol/L Chloride 90 L (98-107) mmol/L Carbon Dioxide (22-30) mmol/L Anion Gap 1.7 L (7-16) BUN 21 H (7-17) mg/dL POC Glucose (70-110) mg/dL Random Glucose (70-110) mg/dL Serum Osmolality 260 L (280-295) mOsm/kg Calcium 8.2 L (8.5-10.1) mg/dL Phosphorus 2.2 L (2.5-4.5) mg/dL Magnesium 1.4 L (1.6-2.3) mg/dL Total Bilirubin (0.2-1.3) mg/dL AST (14-36) U/L Total Protein 4.9 L (6.3-8.2) gm/dL Albumin 2.7 L (3.5-5.0) gm/dL Urine Sodium 24.00 L (30-90) mmol/L 01/09/17 01/10/17 01/11/17 Range/Units 06:00 06:00 06:00 WBC (4.2-12.2) K/uL RBC (3.80-5.40) M/uL Hgb (11.6-16.0) gm/dl Hct (35.0-47.0) % Lymphocytes % (16-45) % Monocytes % (0-9) % Sodium 122 L 126 L 129 L (136-145) mmol/L Chloride 93 L 96 L (98-107) mmol/L Carbon Dioxide (22-30) mmol/L Anion Gap 4.8 L 5.5 L (7-16) BUN 18 H (7-17) mg/dL POC Glucose (70-110) mg/dL Random Glucose (70-110) mg/dL Serum Osmolality (280-295) mOsm/kg Calcium 8.2 L 8.3 L (8.5-10.1) mg/dL Phosphorus (2.5-4.5) mg/dL Magnesium (1.6-2.3) mg/dL Total Bilirubin 0.19 L (0.2-1.3) mg/dL AST (14-36) U/L Total Protein 4.9 L 5.1 L (6.3-8.2) gm/dL Albumin 2.6 L 2.8 L (3.5-5.0) gm/dL Urine Sodium (30-90) mmol/L 04/16/17 04/17/17 04/17/17 Range/Units 05:20 06:00 06:00 WBC (4.2-12.2) K/uL RBC 3.02 L (3.80-5.40) M/uL Hgb 9.5 L (11.6-16.0) gm/dl Hct 28.8 L (35.0-47.0) % Lymphocytes % 11.0 L (16-45) % Monocytes % 10.0 H (0-9) % Sodium 129 L 126 L (136-145) mmol/L Chloride 97 L 93 L (98-107) mmol/L Carbon Dioxide (22-30) mmol/L Anion Gap 3.8 L 5.7 L (7-16) BUN 19 H 20 H (7-17) mg/dL POC Glucose (70-110) mg/dL Random Glucose (70-110) mg/dL Serum Osmolality (280-295) mOsm/kg Calcium 8.3 L 8.3 L (8.5-10.1) mg/dL Phosphorus (2.5-4.5) mg/dL Magnesium (1.6-2.3) mg/dL Total Bilirubin (0.2-1.3) mg/dL AST (14-36) U/L Total Protein 5.2 L 5.6 L (6.3-8.2) gm/dL Albumin 2.8 L 3.0 L (3.5-5.0) gm/dL Urine Sodium (30-90) mmol/L Condition at Discharge: (3) Guarded Discharge Medications - Discharge Medications Prescriptions: Levofloxacin [Levaquin] 750 mg PO DAILY #5 tab Magnesium Oxide [Mag Ox] 400 mg PO BID #60 tab Ondansetron [Zofran Odt] 4 mg SL Q8H PRN #30 tab.rapdis PRN Reason: Nausea/Vomiting Home Medications: Ambulatory Orders Esomeprazole Magnesium [Nexium] 40 mg PO DAILY 12/20/15 [Last Taken 01/03/17] Metoprolol Succinate 25 mg PO DAILY 12/20/15 [Last Taken 01/03/17] Thyroid,Pork [C[place]azon Thyroid] 60 mg PO DAILY 12/20/15 [Last Taken 01/03/17] Donepezil HCl [Aricept] 5 mg PO DAILY 12/31/16 [Last Taken 01/03/17] Perphenazine 4 mg PO QHS 12/31/16 [Last Taken 01/03/17] Raloxifene HCl 60 mg PO DAILY 12/31/16 [Last Taken 01/03/17] Solifenacin Succinate [Vesicare] 10 mg PO DAILY 12/31/16 [Last Taken 01/03/17] Valsartan [Diovan] 40 mg PO DAILY 12/31/16 [Last Taken 01/03/17] Verapamil HCl [Verapamil Sr] 120 mg PO DAILY 12/31/16 [Last Taken 01/03/17] Acetaminophen [Tylenol 500Mg Tab] 1,000 mg PO Q6H PRN #0 tablet 01/13/17 [Last Taken Unknown] Levofloxacin [Levaquin] 750 mg PO DAILY #5 tab 01/13/17 [Last Taken Unknown] Loperamide HCl [Immodium] 2 mg PO Q4H PRN #0 capsule 01/13/17 [Last Taken Unknown] Magnesium Oxide [Mag Ox] 400 mg PO BID #60 tab 01/13/17 [Last Taken Unknown] Melatonin 5 mg PO QHS PRN #0 tablet 01/13/17 [Last Taken Unknown] Ondansetron [Zofran Odt] 4 mg SL Q8H PRN #30 tab.rapdis 01/13/17 [Last Taken Unknown] Discharge Plan - Discharge Instructions Activity at Discharge: Resume Usual Activities As Tolerated Diet at Discharge: Other (1-2 cups of sodium broth of choice daily, no more than 1200 ml fluids per day) Instructions: Failure to Thrive in an Older Adult (DC) Additional Instructions: Follow up with your doctor this week. Continue with beef boullion with each meal. Levaquin every other day starting tomorrow Magnesium 400mg twice a day Zofran for nausea, under the tongue every 8 hours as needed. Resume home meds Diet as tolerated. Activity as tolerated. [facility].
[2017-01-14] MEDS ORDERED: LEVOFLOXACIN/D5W 750 MG in DEXTROSE 1 BAG IVPB SCH (18:00)
== END 2017-01-13 16:30 | disposition hospice, home (50) | DRG 641 ==
LOC: ER 18:56 → UNDOADMIN 21:23 → MEDSURG 21:23 → UNDOADMIN 01-04 23:51
PROVIDERS: ADMIT Family Medicine; ATTEND Family Medicine
DX: R62.7 Adult failure to thrive (principal); I25.10 Atherosclerotic heart disease of native coronary artery without angina pectoris; E87.1 Hypo-osmolality and hyponatremia; R63.4 Abnormal weight loss; R53.1 Weakness; F03.90 Unspecified dementia, unspecified severity, without behavioral disturbance, psychotic disturbance, mood disturbance, and anxiety; I10 Essential (primary) hypertension; E16.2 Hypoglycemia, unspecified; R10.9 Unspecified abdominal pain; R11.0 Nausea; S01.411A Laceration without foreign body of right cheek and temporomandibular area, initial encounter; W06.XXXA Fall from bed, initial encounter; Z91.81 History of falling; Y92.231 Patient bathroom in hospital as the place of occurrence of the external cause; J44.9 Chronic obstructive pulmonary disease, unspecified; R51 Headache; E03.9 Hypothyroidism, unspecified; Z66 Do not resuscitate
CPT/HCPCS: 99285; 83690; 85025 ×2; 80053 ×2; 36416 ×4; 82948 ×4; 81003; 84443; 70450; J2060; J3490; 71010; 71020; 72125; 80048; 83735; 83930; 83935; 84100; 84295; 84300; 85027; 94620; 94760; 96361; 96374; 96375; 97110; 97116; 97166; 97530; 97535; 99223; 99233; 99239; 99291; J1200; J1956; J2405; J2765; J7030; J7042